=== PATIENT | female | born 1995 | race Caucasian/White ===

== ENCOUNTER → 2021-05-12 10:42 | Outpatient (CLI) | payer BC, SELFPAY ==
--- NOTE | ~2021-05-12 | CT_ITS ---
EXAMINATION: CT soft tissue neck chest w DATE: 05/12/2021 11:25 INDICATION: Generalized enlarged lymph nodes. TECHNIQUE: Computed tomography (CT) of the neck and chest was performed with 75 mL Omnipaque-350 intr avenous contrast. Automated exposure control and iterative reconstruction technique were employed. Th e dose-length product was 713.53 mGy-cm. COMPARISON: None FINDINGS: CT NECK: There are no pathologically enlarged lymph nodes. There is mild cervical spondylosis. CT CHEST: There is minimal atelectasis in the lungs. No pleural effusion. The heart size is normal. N o pericardial effusion. There are no pathologically enlarged lymph nodes. The bones are unremarkable. IMPRESSION: 1. No lymphadenopathy. Reviewed, dictated and finalized at location A. IMPRESSION: 1. No lymphadenopathy.
== END ==
PROVIDERS: PCP Family Medicine; Visit Provider Nurse Practitioner Family
DX: R59.1 Generalized enlarged lymph nodes (principal)
CPT/HCPCS: 70491; 71260; Q9967

== ENCOUNTER → 2022-02-07 07:50 | Outpatient (CLI) | payer BC, SELFPAY ==
--- NOTE | ~2022-02-07 | US_ITS ---
EXAMINATION: US right upper quadrant DATE: 02/07/2022 08:14 INDICATION: Right upper quadrant pain TECHNIQUE: Multiple grayscale and Doppler ultrasound images of the abdomen were obtained. COMPARISON: None available FINDINGS: The head, body, and tail of the pancreas are normal. The liver is normal with normal echoge nicity and echotexture. No surface nodularity. Normal hepatopetal flow in the main portal vein. The g allbladder is normal with no abnormal wall thickening, pericholecystic fluid or stones. The normal co mmon bile duct measures 3 mm. There was no sonographic Molina sign. IMPRESSION: 1. Normal sonographic study of the gallbladder. Reviewed, dictated and finalized at location A. ICAL ACADEMIC ALLERGIST
== END ==
PROVIDERS: PCP Nurse Practitioner Family; Visit Provider Nurse Practitioner Family
DX: R10.11 Right upper quadrant pain (principal); R11.0 Nausea
CPT/HCPCS: 76705

== ENCOUNTER → 2022-07-06 12:00 | Outpatient (CLI) | payer BC, SELFPAY ==
--- NOTE | ~2022-07-06 | US_ITS ---
Pelvic ultrasound. Clinical History: First trimester , inconclusive viability Technique: Realtime transabdominal and transvaginal scanning of the pelvis was performed. Color flow Doppler and Doppler spectral analysis were performed. Findings: The uterus is anteverted, and contains an intrauterine gestation. [place]-rump length of 1.6 cm corresponds to an estimated gestational age of 8 weeks 0 days. heart rate is 171 bpm. The right ovary is not visualized. No significant right ovarian or adnexal mass is seen. The left ovary measures 2.4 x 2.8 x 1.6 cm. No significant left ovarian or adnexal mass is seen. There is no evidence of free fluid in the cul de sac. Impression: Live intrauterine gestation with estimated gestational age of 8 weeks 0 days. heart rate is 171 bpm. Sonographic AGUS is 02/15/2023. Reviewed, dictated and finalized at [facility]. Impression: Live intrauterine gestation with estimated gestational age of 8 weeks 0 days. F etal heart rate is 171 bpm. Sonographic AGUS is 02/15/2023.
== END ==
PROVIDERS: PCP Advanced Practice Midwife; Visit Provider Advanced Practice Midwife
DX: O36.80X0 Pregnancy with inconclusive fetal viability, not applicable or unspecified (principal); Z3A.08 8 weeks gestation of pregnancy
CPT/HCPCS: 76801

== ENCOUNTER → 2022-08-13 11:31 | Outpatient (CLI) | payer BC, SELFPAY ==
--- NOTE | ~2022-08-13 | US_ITS ---
US right upper quadrant INDICATION: Right upper quadrant abdominal pain PROCEDURE: Realtime right upper abdominal ultrasound. COMPARISON: There is a hypoechoic mass of the right hepatic lobe measuring 2.3 x 2 x 1.5 cm located i n a subcapsular location. Otherwise, liver echotexture is normal. FINDINGS: The pancreas is normal without focal mass or pancreatic ductal dilation. Liver echotexture is normal without focal mass or intrahepatic biliary dilatation. There is normal directional flow i n the portal vein. The gallbladder is normal without stones, gallbladder wall thickening or pericholecystic fluid. Comm on bile duct measures 3.4 mm. No sonographic Molina's sign. IMPRESSION: 1: Hyperechoic mass of the right hepatic lobe measuring up to 2.3 cm. In the absence of known maligna ncy this is likely benign hemangioma. Consider correlation with CT abdomen with multiphasic contrast enhancement. Reviewed, dictated and finalized at location A. IMPRESSION: 1: Hyperechoic mass of the right hepatic lobe measuring up to 2.3 cm. In the ab sence of known malignancy this is likely benign hemangioma. Consider correlatio n with CT abdomen with multiphasic contrast enhancement.
== END ==
PROVIDERS: PCP Nurse Practitioner; Visit Provider Nurse Practitioner
DX: R10.11 Right upper quadrant pain (principal)
CPT/HCPCS: 76705

== ENCOUNTER → 2022-09-17 08:47 | Outpatient (CLI) | payer BC, SELFPAY ==
--- NOTE | ~2022-09-17 | US_ITS ---
EXAMINATION: US OB /maternal detail DATE: 09/17/2022 09:45 INDICATION: survey TECHNIQUE: Multiple obstetric sonographic images performed. FINDINGS: Ultrasound dated 07/06/2022 There is a single living fetus in vertex presentation. The placenta is posterior without placenta pr evia. Placental margin to the cervix is 5.8 cm. Cervical length is 3.7 cm. Amniotic fluid volume is s ubjectively normal. cardiac activity and movement is noted with a heart rate of beats per minute. The following anatomy was identified as normal: 4 chamber heart 3 vessel cord cord insertion kidneys urinary bladder stomach spine diaphragm ventricles cisterna magna cerebellum The following biometric data were obtained: BPD: 44mm corresponds to gestational age 19 weeks 2 days. Head circumference: 163 mm corresponds to gestational age 19 weeks 0 days. Abdominal circumference: 129 mm corresponds to gestational age 18 weeks 3 days. Femur length: 25 mm corresponds to gestational age 17 weeks 4 days. Head circumference to abdominal circumference ratio: 1.26 (normal range for expected gestational age is 1.09-1.27). Estimated weight: 227 grams +/- 34 grams using Hadlock method, 30%. IMPRESSION: 1: Single living intrauterine with an estimated gestational age of 18weeks 3days by initial ultrasound measurements, with an EDC of 02/15/2023 in vertex presentation. 2. Normal survey. Reviewed, dictated and finalized at location A. IMPRESSION: 1: Single living intrauterine with an estimated gestational age of 18 weeks 3days by initial ultrasound measurements, with an EDC of 02/15/2023 in ve rtex presentation. 2. Normal survey.
== END ==
PROVIDERS: PCP Advanced Practice Midwife; Visit Provider Advanced Practice Midwife
DX: Z36.9 Encounter for antenatal screening, unspecified (principal); Z3A.19 19 weeks gestation of pregnancy
CPT/HCPCS: 76805

== ENCOUNTER 2022-10-30 14:33 | Observation (INO) | payer BC, SELFPAY ==
--- NOTE | ~2022-10-30 | US_ITS ---
Pelvic ultrasound. Clinical History: Second trimester , status post fall Technique: Realtime transabdominal and transvaginal scanning of the pelvis was performed. Color flow Doppler and Doppler spectral analysis were performed. Findings: The uterus is anteverted, and contains an intrauterine gestation. heart rate is 151 b pm. Placenta is posteriorly located. Amniotic fluid index is 17.6. Cephalic lie noted. Neither ovary visualized. There is no evidence of free fluid in the cul de sac. Impression: Live intrauterine gestation, as detailed above. Reviewed, dictated and finalized at location M. Impression: Live intrauterine gestation, as detailed above.
[2022-10-30 14:51] VITALS: BMI 28.9
--- NOTE | 2022-10-30 14:51 | OBADM ---
This patient, Rekha Flores, admitted to the OB room OB Post 116 for observation. Patient/family oriented to hospital policies and general routines including ID bracelet, bed and alarms, visiting hours, pain management, procedures, bathroom and other care routines, personal items, smoking policy, room service/diet, and visiting hours. Patient/Family are encouraged to report perceived risks to care and to ask questions if they do not understand what they are told or what they should do.
[2022-10-30 15:01] VITALS: BP 111/60; PULSE 72
--- NOTE | 2022-10-30 17:58 | PC.NURSE ---
Dr. Zayas notified of NST, no contractions/leaking of fluid or vaginal bleeding. LAINE and placenta check done by ultrasound. Okay to discharge.
--- NOTE | 2022-11-01 11:43 | PM.OBTRLD ---
OB - Triage/Final Diagnosis Visit Information Comments/Additional reasons for admission: I have assessed the risk for this patient, Rekha Flores, and determined that she would benefit from observation care. Final Diagnosis (1) Fall from slip, trip, or stumble: Code(s): W01.0XXA - Fall on same level from slipping, tripping and stumbling without subsequent striking against object, initial encounter Status: Acute
== END 2022-10-30 17:10 | disposition home or self-care (01) ==
PROVIDERS: Admitting Provider Obstetrics & Gynecology; PCP Advanced Practice Midwife; Visit Provider Obstetrics & Gynecology
DX: Z04.3 Encounter for examination and observation following other accident (principal)
CPT/HCPCS: 76815; G0378; G0379

== ENCOUNTER 2022-12-17 09:07 | Outpatient (CLI) | payer OTHER, SELFPAY ==
[2022-12-17 09:28] LABS: Hematocrit 34.3 % (37.0-47.0); Hemoglobin 11.1 g/dL (12.0-15.0); Mean Corpuscular HGB Conc 32.4 g/dl (32-36); Mean Corpuscular Hemoglobin 29.2 pg (26-34); Mean Corpuscular Volume 90.3 fl (80-100); Mean Platelet Volume 10.5 fl (7.4-10.4); Platelet Count Result 179 k/mm3 (150-375); Red Cell Distribution Width 13.2 % (11.5-14.5); White Blood Count 7.4 K/mm3 (4.5-10.0)
[2022-12-17 09:45] LABS: Alanine Aminotransferase 13 U/L (6-35); Albumin Level 3.5 g/dL (3.5-5.1); Alkaline Phosphatase 85 U/L (38-126); Anion Gap 6 mmol/L (8-16); Aspartate Amino Transferase 17 U/L (14-36); Bilirubin,Total 0.4 mg/dL (0.2-1.3); Blood Urea Nitrogen 6 mg/dL (7-17); Calcium 8.4 mg/dL (8.4-10.2); Carbon Dioxide 24 mmol/L (22-30); Chloride 104 mmol/L (98-107); Estimated Glomerular Filt Rate > 60; Glucose 83 mg/dL (65-110); Potassium 4.2 mmol/L (3.4-5.0); Sodium 134 mmol/L (137-145); Uric Acid 3.5 mg/dL (2.5-7.5)
== END 2022-12-17 09:08 | disposition home or self-care (01) ==
LOC: ANHLAB 09:11
PROVIDERS: PCP Advanced Practice Midwife; Visit Provider Obstetrics & Gynecology Gynecology
DX: R03.0 Elevated blood-pressure reading, without diagnosis of hypertension (principal)
CPT/HCPCS: 36415; 80053; 84550; 85027

== ENCOUNTER 2022-12-19 07:22 | Outpatient (NON) | payer OTHER, SELFPAY ==
[2022-12-19 08:41] LABS: Collection Time Urine 24 HOURS
[2022-12-19 09:02] LABS: Patient Weight 180 Lbs
[2022-12-19 09:55] LABS: Total Volume 24 Hour Urine 1700 ml
[2022-12-19 10:03] LABS: Creatinine Urine 62.7 mg/dL
[2022-12-21 10:29] LABS: Total Protein Urine 24 Hr 289 mg/24hr (28-141); Total Protein Urine Random 17 mg/dL
== END 2022-12-19 07:23 | disposition home or self-care (01) ==
LOC: ANHLAB 07:24
PROVIDERS: PCP Advanced Practice Midwife; Visit Provider Obstetrics & Gynecology Gynecology
DX: R03.0 Elevated blood-pressure reading, without diagnosis of hypertension (principal)
CPT/HCPCS: 81050; 82575; 84156

== ENCOUNTER 2022-12-26 15:47 | Outpatient (CLI) | payer OTHER, SELFPAY ==
[2022-12-26 16:30] LABS: Basophils Percent Auto 0.3 % (0.2-1.2); Eosinophils Absolute Auto 0.1 K/mm3 (0-0.3); Eosinophils Percent Auto 1.1 % (0-4.4); Hematocrit 34.9 % (37.0-47.0); Hemoglobin 11.3 g/dL (12.0-15.0); Immature Granulocyte Absolute 0.09 K/mm3 (0.00-0.031); Immature Granulocyte Percent A 1.4 % (0-0.5); Lymphocytes Absolute Auto 1.24 K/mm3 (0.9-3.2); Lymphocytes Percent Auto 19.2 % (18.3-44.2); Mean Corpuscular HGB Conc 32.4 g/dl (32-36); Mean Corpuscular Hemoglobin 29.3 pg (26-34); Mean Corpuscular Volume 90.4 fl (80-100); Mean Platelet Volume 10.7 fl (7.4-10.4); Monocytes Absolute Auto 0.6 K/mm3 (0.1-0.6); Monocytes Percent Auto 9.3 % (2.6-8.5); Neutrophils Absolute Auto 4.4 K/mm3 (1.3-6.7); Neutrophils Percent Auto 68.7 % (45.5-73.1); Platelet Count Result 186 k/mm3 (150-375); Red Blood Count 3.86 M/mm3 (4.2-5.4); Red Cell Distribution Width 13.2 % (11.5-14.5); White Blood Count 6.5 K/mm3 (4.5-10.0)
[2022-12-26 16:41] LABS: Alanine Aminotransferase 15 U/L (6-35); Albumin Level 3.8 g/dL (3.5-5.1); Alkaline Phosphatase 99 U/L (38-126); Anion Gap 6 mmol/L (8-16); Aspartate Amino Transferase 16 U/L (14-36); Bilirubin,Total 0.5 mg/dL (0.2-1.3); Blood Urea Nitrogen 7 mg/dL (7-17); Calcium 8.9 mg/dL (8.4-10.2); Carbon Dioxide 24 mmol/L (22-30); Chloride 104 mmol/L (98-107); Estimated Glomerular Filt Rate > 60; Glucose 90 mg/dL (65-110); Sodium 134 mmol/L (137-145)
== END 2022-12-26 15:48 | disposition home or self-care (01) ==
LOC: ANHLAB 15:54
PROVIDERS: PCP Advanced Practice Midwife; Visit Provider Obstetrics & Gynecology Gynecology
DX: R60.9 Edema, unspecified (principal); R51.9 Headache, unspecified; O12.10 Gestational proteinuria, unspecified trimester; Z3A.00 Weeks of gestation of pregnancy not specified
CPT/HCPCS: 36415; 80053; 85025

== ENCOUNTER 2022-12-28 07:31 | Outpatient (CLI) | payer OTHER, SELFPAY ==
[2022-12-28 12:39] LABS: Total Volume 24 Hour Urine 2100 ml
[2022-12-28 12:47] LABS: Total Protein Urine 24 Hr 399 mg/24hr (28-141); Total Protein Urine Random 19 mg/dL
== END 2022-12-28 07:32 | disposition home or self-care (01) ==
LOC: ANHLAB 07:35
PROVIDERS: PCP Nurse Practitioner Family; Visit Provider Obstetrics & Gynecology Gynecology
DX: R51.9 Headache, unspecified (principal); R60.9 Edema, unspecified; O12.10 Gestational proteinuria, unspecified trimester; Z3A.00 Weeks of gestation of pregnancy not specified
CPT/HCPCS: 81050; 84156

== ENCOUNTER 2023-01-02 11:23 | Outpatient (CLI) | payer OTHER, SELFPAY ==
[2023-01-02 11:49] LABS: Hematocrit 35.1 % (37.0-47.0); Hemoglobin 11.4 g/dL (12.0-15.0); Mean Corpuscular HGB Conc 32.5 g/dl (32-36); Mean Corpuscular Hemoglobin 29.2 pg (26-34); Mean Corpuscular Volume 89.8 fl (80-100); Mean Platelet Volume 10.2 fl (7.4-10.4); Platelet Count Result 176 k/mm3 (150-375); Red Blood Count 3.91 M/mm3 (4.2-5.4); Red Cell Distribution Width 13.5 % (11.5-14.5); White Blood Count 6.7 K/mm3 (4.5-10.0)
[2023-01-02 11:58] LABS: Alanine Aminotransferase 14 U/L (6-35); Albumin Level 3.6 g/dL (3.5-5.1); Alkaline Phosphatase 87 U/L (38-126); Anion Gap 6 mmol/L (8-16); Aspartate Amino Transferase 19 U/L (14-36); Bilirubin,Total 0.5 mg/dL (0.2-1.3); Blood Urea Nitrogen 8 mg/dL (7-17); Calcium 8.9 mg/dL (8.4-10.2); Carbon Dioxide 22 mmol/L (22-30); Chloride 105 mmol/L (98-107); Estimated Glomerular Filt Rate > 60; Glucose 95 mg/dL (65-110); Potassium 3.7 mmol/L (3.4-5.0); Sodium 133 mmol/L (137-145); Uric Acid 3.4 mg/dL (2.5-7.5)
== END 2023-01-02 11:24 | disposition home or self-care (01) ==
LOC: ANHLAB 11:26
PROVIDERS: PCP Nurse Practitioner Family; Visit Provider Obstetrics & Gynecology Gynecology
DX: Z34.03 Encounter for supervision of normal first pregnancy, third trimester (principal); Z3A.00 Weeks of gestation of pregnancy not specified
CPT/HCPCS: 36415; 80053; 84550; 85027

== ENCOUNTER → 2023-01-05 11:34 | Outpatient (CLI) | payer OTHER, SELFPAY ==
--- NOTE | ~2023-01-05 | US_ITS ---
EXAMINATION: US OB follow up, US umbilical doppler DATE: 01/05/2023 12:16 INDICATION: Preeclampsia, third trimester TECHNIQUE: Real-time ultrasound of the pelvis was performed. The interpreting radiologist was not pre sent for the study. COMPARISON: 10/30/2022 FINDINGS: There is a single living fetus in vertex presentation. The placenta is posterior. The measu red cervical length is 2.5 cm. cardiac activity and movement are noted. heart rate is 140 beats per minute (bpm). The amniotic fluid index is 23.0 cm which is normal (normal range: 8.1 cm to 24.8 cm). Umbilical artery pulsed Doppler demonstrates peak systolic to end-diastolic velocity ratios (S/D rati os) of 4.3 near the fetus, 2.6 in the mid cord, and 3.2 near the placenta (5th percentile = 2.1, 95th percentile = 3.5). The following biometric data were obtained: Biparietal diameter (BPD): 9.1 cm; head circumference (HC): 33.3 cm; abdominal circumference (AC): 31 .0 cm; femur length (FL): 6.3 cm. The femoral length to biparietal diameter ratio is greater than two standard deviations below the julius n. These measurements are otherwise concordant. Estimated weight is 2517 g +/- 377 g, which correlates with the 64th percentile when 02/15/2023 is used as estimated date of delivery. As single measurements, these parameters are each equal to the following estimated gestational ages w ith ranges of +/- 2 standard deviations: BPD: 36 weeks 6 days ( 33 weeks 4 days - 40 weeks 0 days). HC: 38 weeks 0 days ( 35 weeks 2 days - 40 weeks 5 days). AC: 35 weeks 0 days ( 32 weeks 0 days - 37 weeks 6 days). FL: 32 weeks 4 days ( 29 weeks 4 days - 35 weeks 4 days). estimated gestational age based solely on measurements from this exam is 35 weeks 4 days +/- 2 weeks 3 days. IMPRESSION: 1. Single living fetus in vertex presentation. 2. Normal amniotic fluid index. 3. Estimated weight is 2517 g +/- 377 g, which correlates with the 64th percentile when is used as estimated date of delivery. 4. Femoral length to biparietal diameter ratio greater than two standard deviations below the mean. 5. Elevated peak systolic to end diastolic umbilical artery ratio near the fetus. Reviewed, dictated and finalized at location L. IRER SASH AND DOOR IMPRESSION: 1. Single living fetus in vertex presentation. 2. Normal amniotic fluid index. 3. Estimated weight is 2517 g +/- 377 g, which correlates with the 64th p ercentile when 02/15/2023 is used as estimated date of delivery. 4. Femoral length to biparietal diameter ratio greater than two standard deviat ions below the mean. 5. Elevated peak systolic to end diastolic umbilical artery ratio near the fetu s.
== END ==
PROVIDERS: PCP Obstetrics & Gynecology Gynecology; Visit Provider Obstetrics & Gynecology Gynecology
DX: O14.93 Unspecified pre-eclampsia, third trimester (principal); Z3A.35 35 weeks gestation of pregnancy
CPT/HCPCS: 76816; 76820

== ENCOUNTER 2023-01-05 14:28 | Observation (INO) | payer OTHER, SELFPAY ==
[2023-01-05] VITALS (9 sets, daily range): BP systolic 114–126; BP diastolic 54–81; PULSE 82–97; BMI 32.8
[2023-01-05] MEDS: NIFEdipine 10 MG CAPSULE PO (15:08)
--- NOTE | 2023-01-05 15:12 | OBADM ---
This patient, Rekha Flores, admitted to the OB room Labor/Delivery/Recovery 107 for observation. Patient/family oriented to hospital policies and general routines including ID bracelet, bed and alarms, visiting hours, pain management, procedures, bathroom and other care routines, personal items, smoking policy, room service/diet, and visiting hours. Patient/Family are encouraged to report perceived risks to care and to ask questions if they do not understand what they are told or what they should do.
[2023-01-05] MEDS: BETAMETHASONE SOD PHOS/ACETATE 30 MG/5 ML VIAL 12 MG IM (17:08)
--- NOTE | 2023-01-16 07:41 | PM.OBTRLD ---
OB - Triage/Final Diagnosis Visit Information Reason for evaluation: other (Preeclampsia) Comments/Additional reasons for admission: I have assessed the risk for this patient, Rekha Flores, and determined that she would benefit from observation care.
== END 2023-01-05 17:33 | disposition home or self-care (01) ==
PROVIDERS: Admitting Provider Obstetrics & Gynecology Gynecology; PCP Obstetrics & Gynecology Gynecology; Visit Provider Obstetrics & Gynecology Gynecology
DX: O14.93 Unspecified pre-eclampsia, third trimester (principal); Z3A.34 34 weeks gestation of pregnancy
CPT/HCPCS: 96372; A9270; G0378; G0379; J0702

== ENCOUNTER 2023-01-06 16:44 | Outpatient (CLI) | payer OTHER, SELFPAY ==
[2023-01-06] MEDS: BETAMETHASONE SOD PHOS/ACETATE 30 MG/5 ML VIAL 12 MG IM (17:14)
[2023-01-06 17:16] VITALS: BP 125/80; PULSE 92
[2023-01-06 17:31] VITALS: BP 113/67; PULSE 83
[2023-01-06 17:48] VITALS: BP 113/67; PULSE 86
== END 2023-01-06 17:45 | disposition home or self-care (01) ==
LOC: ANHOBOP 16:55 → ANHLDR 17:00
PROVIDERS: PCP Nurse Practitioner Family; Visit Provider Obstetrics & Gynecology Gynecology
DX: O36.8190 Decreased fetal movements, unspecified trimester, not applicable or unspecified (principal); Z3A.00 Weeks of gestation of pregnancy not specified
CPT/HCPCS: 59025; 96372; 99199; J0702

== ENCOUNTER → 2023-01-09 12:05 | Outpatient (CLI) | payer OTHER, SELFPAY ==
--- NOTE | ~2023-01-09 | US_ITS ---
EXAMINATION: 1. US OB follow up 2. US umbilical doppler DATE: 01/09/2023 12:35 INDICATION: Growth discrepancy. TECHNIQUE: Real-time ultrasound of the pelvis was performed. COMPARISON: Ultrasound 01/05/2023 FINDINGS: There is a single living fetus in vertex presentation. The placenta is posterior. heart rate i s 136 beats per minute (bpm). The amniotic fluid index is 22.9 cm, which is normal. The following biometric data were obtained: Biparietal diameter (BPD): 8.8 cm; head circumference (HC): 31.3 cm; abdominal circumference (AC): 31 .2 cm; femur length (FL): 6.7 cm. These measurements are concordant. Estimated weight is 2555 g +/- 383 g, which correlates with the 53rd percentile when 02/15/23 i s used as estimated date of delivery. As single measurements, these parameters are each equal to the following estimated gestational ages: BPD: 35 weeks 4 days. HC: 35 weeks 1 days. AC: 35 weeks 1 days. FL: 34 weeks 2 days. estimated gestational age based solely on measurements from this exam is 35 weeks 0 days +/- 2 weeks 3 days. Umbilical artery pulsed Doppler demonstrates a peak systolic to end-diastolic velocity ratio (S/D rat io) of 2.3 (5th percentile is 2.07. 95th percentile is 3.53). IMPRESSION: 1. Single living fetus in vertex presentation. 2. Estimated weight is 2555 g +/- 383 g, which correlates with the 53rd percentile when is used as estimated date of delivery. 3. Normal umbilical artery Doppler. Reviewed, dictated and finalized at location A. ENGER RELATIONS REPRESENTATIVE IMPRESSION: 1. Single living fetus in vertex presentation. 2. Estimated weight is 2555 g +/- 383 g, which correlates with the 53rd percentile when 02/15/23 is used as estimated date of delivery. 3. Normal umbilical artery Doppler.
== END ==
PROVIDERS: PCP Advanced Practice Midwife; Visit Provider Advanced Practice Midwife
DX: O36.5930 Maternal care for other known or suspected poor fetal growth, third trimester, not applicable or unspecified (principal); Z3A.35 35 weeks gestation of pregnancy
CPT/HCPCS: 76816; 76820

== ENCOUNTER 2023-01-10 12:05 | Outpatient (CLI) | payer OTHER, SELFPAY ==
[2023-01-10] VITALS (12 sets, daily range): BP systolic 114–125; BP diastolic 73–79; PULSE 77–105; RESP 16; TEMP 36.8; O2SAT 94–100; BMI 32.3
[2023-01-10 12:39] LABS: Basophils Percent Auto 0.3 % (0.2-1.2); Eosinophils Absolute Auto 0.1 K/mm3 (0-0.3); Eosinophils Percent Auto 0.8 % (0-4.4); Hematocrit 36.2 % (37.0-47.0); Hemoglobin 11.7 g/dL (12.0-15.0); Immature Granulocyte Absolute 0.18 K/mm3 (0.00-0.031); Immature Granulocyte Percent A 2.4 % (0-0.5); Lymphocytes Absolute Auto 1.31 K/mm3 (0.9-3.2); Lymphocytes Percent Auto 17.5 % (18.3-44.2); Mean Corpuscular HGB Conc 32.3 g/dl (32-36); Mean Corpuscular Hemoglobin 28.7 pg (26-34); Mean Corpuscular Volume 88.9 fl (80-100); Mean Platelet Volume 10.8 fl (7.4-10.4); Monocytes Absolute Auto 0.7 K/mm3 (0.1-0.6); Neutrophils Absolute Auto 5.2 K/mm3 (1.3-6.7); Platelet Count Result 189 k/mm3 (150-375); Red Blood Count 4.07 M/mm3 (4.2-5.4); Red Cell Distribution Width 13.7 % (11.5-14.5); White Blood Count 7.5 K/mm3 (4.5-10.0)
[2023-01-10 12:43] LABS: Appearance Urine Cloudy (Clear); Bacteria Urine 1+ /hpf; Bilirubin Urine Negative (Negative); Blood Urine Negative (Negative); Color Urine Yellow (Yellow); Glucose Urine UA Negative (Negative); Ketones Urine Trace mg/dL (Negative); Leukocyte Esterase Ur 2+ LEU/UL (NEGATIVE); Nitrate Urine Negative (Negative); Protein Urine Negative (Negative); RBC Urine 0-2 /hpf (0-2); Specific Grav Ur 1.019 (1.001-1.035); Squamous Epithelial Cell Urine Many /hpf (Few); WBC Urine 21-50 /hpf (0-3); pH Urine 6.5 (5.0-9.0)
[2023-01-10 12:48] LABS: Add Urine Microscopic? YES
[2023-01-10 12:49] LABS: Alanine Aminotransferase 18 U/L (6-35); Albumin Level 3.7 g/dL (3.5-5.1); Alkaline Phosphatase 105 U/L (38-126); Anion Gap 11 mmol/L (8-16); Aspartate Amino Transferase 18 U/L (14-36); Bilirubin,Total 0.5 mg/dL (0.2-1.3); Blood Urea Nitrogen 6 mg/dL (7-17); Calcium 9.1 mg/dL (8.4-10.2); Carbon Dioxide 20 mmol/L (22-30); Chloride 104 mmol/L (98-107); Estimated Glomerular Filt Rate > 60; Glucose 101 mg/dL (65-110); Potassium 3.6 mmol/L (3.4-5.0); Sodium 135 mmol/L (137-145); Uric Acid 3.6 mg/dL (2.5-7.5)
[2023-01-10 12:50] LABS: Creatinine Urine 153.7 mg/dL; Total Protein Urine Random 15 mg/dL
--- NOTE | 2023-01-10 13:05 | PC.NURSE ---
Philip Rivero informed of reactive NST, BP's, lab results, pt c/o increased SOB last night- occurs mainly at night. No apparent respiratory distress currently. Resp 16. O2 sat was initially 94-95%, but now 97-100%. Breath sounds clear bilaterally. OK to discharge to home.
== END 2023-01-10 13:10 | disposition home or self-care (01) ==
LOC: ANHOBOP 12:11 → ANHOBPP 12:11
PROVIDERS: PCP Nurse Practitioner Family; Visit Provider Advanced Practice Midwife
DX: O99.891 Other specified diseases and conditions complicating pregnancy (principal); R06.02 Shortness of breath
CPT/HCPCS: 36415; 59025; 80053; 81001; 82570; 84156; 84550; 85025; 87086; 87088; 99199

== ENCOUNTER 2023-01-12 08:55 | Outpatient (RCR) | payer OTHER, SELFPAY ==
--- NOTE | ~2023-01-12 | US_ITS ---
EXAMINATION: US OB BPP wo non-stress DATE: 01/12/2023 10:12 INDICATION: Nonreactive nonstress test. Third trimester. TECHNIQUE: Real-time pelvic ultrasound was performed. COMPARISON: Ultrasound 01/09/2023 FINDINGS: There is a single living fetus in vertex presentation. The placenta is posterior. heart rate i s 129 beats per minute (bpm). The amniotic fluid index is 29.6 cm, which is high (95th percentile is 24.9 cm). Biophysical profile performed by the technologist: breathing (30 sec sustained breathing in 30 minutes): 2 out of 2 movement (3 gross body movements in 30 minutes): 2 out of 2 tone (one episode of mphcvbr-bovxkdpic-keoqoqk limb movement): 2 out of 2 Amniotic fluid pocket (2 cm): 2 out of 2 Total score: 8 out of 8 IMPRESSION: 1. Single living fetus in vertex presentation. 2. Biophysical profile 8 out of 8. 3. Polyhydramnios. Reviewed, dictated and finalized at location A.
[2023-01-12 10:37] VITALS: BP 117/73; PULSE 80
== END 2023-04-12 23:59 | disposition home or self-care (01) ==
LOC: ANHOBOP 08:55
PROVIDERS: PCP Nurse Practitioner Family; Visit Provider Obstetrics & Gynecology Gynecology
DX: O36.8330 Maternal care for abnormalities of the fetal heart rate or rhythm, third trimester, not applicable or unspecified (principal); O40.3XX0 Polyhydramnios, third trimester, not applicable or unspecified
CPT/HCPCS: 59025; 76819

== ENCOUNTER 2023-01-22 14:00 | Outpatient (CLI) | payer OTHER, SELFPAY ==
[2023-01-22 15:11] VITALS: BP 120/79; PULSE 80
--- NOTE | 2023-01-22 15:13 | PC.NURSE ---
2393- Dr. Nguyễn called about NST, ROM plus negative. Okay to discharge
--- NOTE | 2023-01-22 15:15 | PC.NURSE ---
SVE fingertip/thick/-2
== END 2023-01-22 15:05 ==
LOC: ANHOBOP 14:54 → ANHLDR 14:55
PROVIDERS: PCP Nurse Practitioner Family; Visit Provider Advanced Practice Midwife
DX: O42.90 Premature rupture of membranes, unspecified as to length of time between rupture and onset of labor, unspecified weeks of gestation (principal); Z3A.00 Weeks of gestation of pregnancy not specified
CPT/HCPCS: 59025; 84112; 99199

== ENCOUNTER 2023-01-25 00:01 | Inpatient (IN) | payer OTHER, SELFPAY ==
[2023-01-25] VITALS (165 sets, daily range): BP systolic 90–146; BP diastolic 53–98; PULSE 66–118; TEMP 36.2–36.6; O2SAT 95–100; BMI 33.2
[2023-01-25 00:42] LABS: Basophils Percent Auto 0.4 % (0.2-1.2); Eosinophils Absolute Auto 0.1 K/mm3 (0-0.3); Eosinophils Percent Auto 1.1 % (0-4.4); Hemoglobin 11.5 g/dL (12.0-15.0); Immature Granulocyte Absolute 0.11 K/mm3 (0.00-0.031); Immature Granulocyte Percent A 1.5 % (0-0.5); Lymphocytes Absolute Auto 1.66 K/mm3 (0.9-3.2); Mean Corpuscular HGB Conc 32.9 g/dl (32-36); Mean Corpuscular Hemoglobin 29.1 pg (26-34); Mean Corpuscular Volume 88.6 fl (80-100); Mean Platelet Volume 11.2 fl (7.4-10.4); Monocytes Absolute Auto 0.6 K/mm3 (0.1-0.6); Monocytes Percent Auto 7.3 % (2.6-8.5); Neutrophils Absolute Auto 5.1 K/mm3 (1.3-6.7); Neutrophils Percent Auto 67.7 % (45.5-73.1); Platelet Count Result 164 k/mm3 (150-375); Red Blood Count 3.95 M/mm3 (4.2-5.4); Red Cell Distribution Width 13.4 % (11.5-14.5); White Blood Count 7.5 K/mm3 (4.5-10.0)
[2023-01-25 00:58] LABS: Alanine Aminotransferase 16 U/L (6-35); Albumin Level 3.7 g/dL (3.5-5.1); Alkaline Phosphatase 126 U/L (38-126); Anion Gap 10 mmol/L (8-16); Aspartate Amino Transferase 17 U/L (14-36); Bilirubin,Total 0.4 mg/dL (0.2-1.3); Blood Urea Nitrogen 8 mg/dL (7-17); Calcium 9.6 mg/dL (8.4-10.2); Carbon Dioxide 21 mmol/L (22-30); Chloride 104 mmol/L (98-107); Estimated CRCL calculation 147 ml/min; Estimated Glomerular Filt Rate > 60; Glucose 99 mg/dL (65-110); Potassium 3.7 mmol/L (3.4-5.0); Sodium 135 mmol/L (137-145); Uric Acid 3.6 mg/dL (2.5-7.5)
[2023-01-25] MEDS: miSOPROStol 25 MCG TABLET PO ×2 (01:01→05:17)
[2023-01-25] MEDS: AMPICILLIN 2 GM/NS 100 ML 2 GM/100 ML BAG IVPB (01:16)
[2023-01-25 02:07] LABS: HIV 1/2 Ab P24 Ag Result Negative (Negative)
[2023-01-25] MEDS: AMPICILLIN 1 GM/NS 50 ML 1 GM/50 ML BAG IVPB ×2 (05:23→09:33)
--- NOTE | 2023-01-25 06:17 | WPDOBADMIT ---
Obstetrics - Admit Note Admission Note: record reviewed. No pertinent additions to the history and/or any subsequent changes in the physical findings that are not consistent with the expected course of the were found. Additions to the history and/or subsequent changes in the physical findings follow. None.
--- NOTE | 2023-01-25 09:05 | PM.OBPNLAB ---
Pain Control Date/time seen: 01/25/23 09:05 Pain control: tolerating well Comments: Feeling occasional cramping. Partner present and supportive. Denies GILBERT, visual changes, RUQ pain. Pelvic Exam Dilation (cm): 2 Effacement (%): 70 station: -3 Amniotic membrane status: Intact Comments: head well applied to cervix. Contractions Monitor mode: External Contraction pattern: Irregular Contraction phase: Contraction Contraction intensity: Moderate Status status: Category l Assessment and Plan Assessment: induction ongoing Comments: CNM to bedside. Discussed plan of care an option for amniotomy. Discussed risks, benefits, and expectations of breaking water. Patient is agreeable. Amniotomy performed and there was a large return of clear amniotic fluid. Patient tolerated procedure well. Will start pitocin if needed to achieve adequate contraction pattern around 0930. Dr. Zambrano updated.
[2023-01-25 10:49] LABS: Rapid Plasma Reagin Non-Reactive (NonReactive)
[2023-01-25] MEDS: LACTATED RINGERS 1,000 ML 125 ML IV CONT ×2 (11:06→13:54)
[2023-01-25] MEDS: OXYTOCIN 30 UNITS/NS 500 ML 30 UNITS/500 ML BAG IV CONT (11:06)
[2023-01-25] MEDS: fentaNYL CITRATE INJ (*CRX) 100 MCG/2 ML VIAL 50 MCG IV PUSH ×2 (12:54→13:35)
--- NOTE | 2023-01-25 12:55 | PM.OBPNLAB ---
Pain Control Date/time seen: 01/25/23 12:55 Pain control: tolerating well Comments: Feeling increasing contractions. Requesting Fentanyl for pain Pelvic Exam Comments: 3cm on recent RN exam. Contractions Monitor mode: Internal Contraction pattern: Irregular Contraction phase: Contraction Contraction intensity: Moderate Status status: Category l Assessment and Plan Plan: continuous present management Comments: CNM at bedside. Plan of care discussed. Pt unsure if she desires an epidural. Emotional support provided. Anticipate vaginal . Dr. Zambrano updated.
[2023-01-25] MEDS: ONDANSETRON INJ 4 MG/2 ML VIAL IV PUSH ×2 (14:47→20:37)
--- NOTE | 2023-01-25 22:22 | PM.OBPRVD ---
OB - Vaginal Delivery Note Procedure Delivery date: 01/25/23 Events: Preeclampsia w/o severe features Induction method: Per Misoprostol Protocol Delivery augmentation: Rupture of Membranes Delivery monitor: External FHT and Internal FHT Route of delivery: Episiotomy description: None Laceration Description: Periurethral, Perineal - 2nd Degree and Labial Delivery repair: vicryl Specimen: Yes (placenta) Quantitative Blood Loss (ml): 250 Anesthesia type: Epidural Disposition: Floor Complications: No immediate complications Narrative: Rekha Arrived for induction of labor secondary to preeclampsia. She had an uncomplicated labor. She was given epidural for analgesia. She progressed to complete dilation and pushed well with contractions. She brought the head to complete crown. With the next push she delivered the entire head in a controlled manner. With the following push she delivered the anterior and posterior shoulders followed by remainder of the infant. The was placed on the maternal abdomen and dried and stimulated by the nursery staff. After 1 minute of life the cord was doubly clamped and cut. Cord blood, cord gases, and cord segment were obtained. A second-degree perineal laceration as well as a left labial first-degree laceration repaired in usual fashion. There was excellent hemostasis and uterine tone. All delivery counts were correct. Baby Date of : 01/25/23 Time of : 21:43 Weeks of gestation at delivery: 37 gender: Male Weight (pounds): 7 Weight (ounces): 2 presentation: vertex position: Right Occiput Anterior Placenta delivery description: Spontaneous and Normal Configuration Cord Vessel Description: 3 Vessels and Delayed Cord Clamping score one minute: 5 score five minutes: 9
--- NOTE | 2023-01-25 22:27 | PM.OBDSVD ---
DS: Admitting Diagnosis Discharge Date 01/27/2023 Admitting Diagnosis 27 y.o. at 37 weeks gestation Preeclampsia Anxiety and Depression on Lexapro DS: Discharge Diagnosis Discharge Diagnosis (1) (normal spontaneous vaginal delivery): Code(s): O80 - Encounter for full-term uncomplicated delivery Status: Acute (2) Preeclampsia: Code(s): O14.90 - Unspecified pre-eclampsia, unspecified trimester Status: Acute (3) Mother currently breastfeeds: Status: Acute (4) Anxiety and depression: Code(s): F41.9 - Anxiety disorder, unspecified; F32.A - Depression, unspecified Status: Acute OB - DS: Summary Hospital Course Hospital Course: Uncomplicated OB Procedures : NST, PIH Mgmt and Ultrasound OB Procedures Intrapartum: Spontaneous Vag Delivery OB Procedures: : None Peripartum Data Delivery Method: Natural Vaginal Laceration Description: Periurethral, Perineal - 2nd Degree and Labial Episiotomy description: None complications: none Status at Discharge Functional status at discharge: independent ambulation Overall status at discharge: patient is progressing back to baseline Time Spent with Patient Time attestation: Total time spent providing and/or coordinating discharge services: DS: Data Data Completed and Pending Labs on day of discharge: Labs from last 24 hours 01/25/23 01/25/23 00:22 00:22 WBC 7.5 RBC 3.95 L Hgb 11.5 L Hct 35.0 L MCV 88.6 MCH 29.1 MCHC 32.9 RDW 13.4 Plt Count 164 MPV 11.2 H Immature Gran % (Auto) 1.5 H Neut % (Auto) 67.7 Lymph % (Auto) 22.0 [place] % (Auto) 7.3 Eos % (Auto) 1.1 Baso % (Auto) 0.4 Lymph # (Auto) 1.66 [place] # (Auto) 0.6 Eos # (Auto) 0.1 Baso # (Auto) 0.0 Abs Immat Gran (auto) 0.11 H Absolute Neuts (auto) 5.1 Absolute Nucleated RBC 0.0 Nucleated RBC % 0.0 Sodium 135 L Potassium 3.7 Chloride 104 Carbon Dioxide 21 L Anion Gap 10 BUN 8 Creatinine 0.50 L Estim Creat Clear Calc 147 Estimated GFR > 60 Glucose 99 Uric Acid 3.6 Cancelled Calcium 9.6 Total Bilirubin 0.4 AST 17 ALT 16 Alkaline Phosphatase 126 Total Protein 7.0 Albumin 3.7 RPR Non-reactive HIV 1&2 Ab/P24 Ag 4thGn Negative Blood Type O Positive Antibody Screen Negative Discharge Plan Discharge Attending physician on discharge: Lia Zambrano Consulting providers: Riya Rivero Discharging Clinician: Riya Rivero Anticipated Discharge Date/Time: 01/27/23 10:00 Patient Disposition: Home, Self-Care Activity: may shower and pelvic rest Diet: as tolerated Wound Care Instructions: follow printed instructions Discharge Instructions: Education: Mom and Baby Guide Given to: Mother Follow-Up: Call your delivering provider's office for an appointment to be seen in: 1 week for blood pressure check & 6 weeks for post visit Mom and baby should come to the [facility] for the follow-up appointment. Appointment Date/Time: Saturday, January 28, 2023 at 8:00 a.m. What to expect at your follow-up visit: Blood Pressure Check Physical Assessment Call [phone] if you are unable to keep your appointment time. BREAST CARE: * Wear a snug supportive bra. * For engorgement discomfort: Breast Feeding: * Apply warm moist washcloths * Express milk as needed to relieve engorgement * Wear loose clothing * For sore nipples: * Identify correct latch-on * Apply warm moist washcloths before and after nursing * Air dry nipples after nursing * May apply Lansinoh cream to nipples EPISIOTOMY/PERINEAL CARE: * Until bleeding stops, use your amy bottle after urinating * Change your pad frequently throughout the day * You may take sitz baths several times a day (fill your bathtub with warm water and soak for 20
[2023-01-25] MEDS: OXYTOCIN 30 UNITS/NS 500 ML 30 UNITS/500 ML BAG 125 UNITS IV CONT (23:15)
[2023-01-26] VITALS (9 sets, daily range): BP systolic 108–136; BP diastolic 64–80; PULSE 80–101; RESP 16–18; TEMP 36.5–36.9; O2SAT 97–98
[2023-01-26] MEDS: BENZOCAINE 20% AER SPR (*SP) 56 GM CAN 1 SPRAY TOPICAL (00:18)
[2023-01-26] MEDS: IBUPROFEN 600 MG TABLET PO ×3 (00:19→17:10)
[2023-01-26] MEDS: WITCH HAZEL 40 PADS 1 PAD TOPICAL (00:20)
[2023-01-26] MEDS: LANOLIN (LANSINOH) 7.5 GM CREAM 1 APPLIC TOPICAL (00:20)
--- NOTE | 2023-01-26 01:11 | OBPPTRN ---
Patient transferred to post room 282 via wheelchair. Support person present. Oriented to unit, room, information board, rooming in, admission packet and security measures. Patient verbalizes understanding.
[2023-01-26 05:57] LABS: Hematocrit 33.7 % (37.0-47.0); Hemoglobin 11.2 g/dL (12.0-15.0)
--- NOTE | 2023-01-26 07:00 | PC.NURSE ---
PT introductions made and plan of care discussed per post , pain management, breast feeding, daily care activities. PT sole recipient of such instructions and no barriers to learning identified at this time. PT received such instructions per one to one discussion, mom baby care guide and demonstrations this shift. PT verbalized understanding of such care.
--- NOTE | 2023-01-26 09:38 | P.PNOB_ITS ---
OB - PN: Subj Subjective Date/time seen: 01/26/23 0720 Interval history: Doing well. Urinating without difficulty. Denies passing any large clots. Denies dizziness with ambulating. Tolerating po food and fluids. Bonding with infant. BP normal range overnight. No GILBERT, visual changes, RUQ pain, or increase in edema. Patient comments: pain well controlled [place] baby status: nursing well feeding status: exclusively breast feeding OB - PN: Obj Data Labs 01/26/23 03:49 01/25/23 00:22 Labs: Laboratory Results - last 24 hr 01/25/23 01/26/23 00:22 03:49 Hgb 11.2 L Hct 33.7 L RPR Non-reactive OB - PN A/P Plan day: 1 Plan: routine care Time Spent With Patient Time: Total time spent is greater than 50% in coordination of care (as documented) at patient's floor/unit and/or counseling patient: Review of Systems Review of Systems: All systems reviewed & are unremarkable except as noted in HPI and below Exam Narrative: Alert and oriented. Mood is pleasant and cooperative. Perineum with minimal edema. Fundus firm and below umbilicus. Const: General: cooperative, healthy appearing, no acute distress and alert Orientation/consciousness: patient oriented x3 Limitations: no limitations Resp: Effort & Inspection: normal respiratory effort and able to speak in complete sentences Auscultation: clear to auscultation bilaterally Cardio: Rate: regular rate GI: Inspection: normal to inspection Auscultation: normal bowel sounds : General: Yes bladder normal to palpation External Female Exam: other (lochia WNL) Bimanual exam- vagina & uterus: bladder normal to palpation Other: Fundus firm and below U Skin: General skin exam: normal color and no rashes or lesions noted Neuro: General: patient oriented x3 and moves all extremities Cognition (Neuro): normal cognition Extrem: General: normal to inspection and no calf tenderness Psych: Appearance: grossly normal Mental Status: mental status grossly normal Affect: normal affect Thought process: Normal thought process present
[2023-01-26] MEDS: MULTIVIT/MIN/PREN/FOL AC/IRON TABLET 1 TAB PO (10:04)
[2023-01-26] MEDS: DOCUSATE SODIUM 100 MG CAPSULE PO ×2 (10:04→17:11)
[2023-01-26] MEDS: ACETAMINOPHEN 325 MG TABLET 650 MG PO ×2 (10:06→17:09)
--- NOTE | 2023-01-26 16:17 | PC.NURSE ---
[id number] Introductions were made, then consulted with patient to assess needs related to . Mother led the conversation with her?plans to feed?her infant and the?experience so far. Encouraged understanding of the benefits of skin to skin (demonstrating unwrapping and placing upright on her chest), stimulating with massage touch, changing positions to encourage wakefulness, how to watch for early feeding cues, responsive feeding, feeding on demand (aiming for 8-12 times in 24 hours, about every 2-3 hours), milk production, hand expression, building/maintaining a milk supply, duration of feeding, signs of adequate intake/output and how to record on the feeding sheet. Mother works well with her infant with encouragement and education. Parents voiced understanding of the information. [id number] LC was requested. Mother is demonstrating working well with her infant and has infant latched cross cradle to the right breast. Infant was detached after sharing the visual assessment of with less than 90 degrees. Nipple was misshaped. Mother states she is unable to latch to the left breast so, we decided to work together to see if we can reposition to latch infant deeply on the left. Reviewed positioning and ear, shoulder, hip alignment, supporting the breast to facilitate a deep latch, asymmetrical latch (off-center), leading with the chin with a big, open, wide gape and body close to mother. Discussed with mother the importance of using the sandwich technique to help encouraged infant to latch deeper protecting her nipple. Infant latched optimally to the left breast incross cradle position. Education given to the mother of how to visualize the suckling (with good rocking jaw motion), swallows (dropping of the lower jaw) and how to listen for drinking at the breast (the ka sound). was able to maintain latch without pain to mother protecting the nipple with optimal positioning and latching. We discussed as a group how to support the optimal latch to prevent from slipping of the breast to a shallow latch, watching for swallowing and detaching if there's a pinchy or biting pain. Reviewed comfort measures of healing with a warm, wet washcloth to rinse breast, then leave open to air-dry, good handwashing when or touching the breast/nipples to prevent infection. Mother voiced understanding of skin to skin, stimulating with massage touch, responsive feedings, hand expressed colostrum, talking to to encourage on demand or if it has been 2 -2.5 hours since the start of the last , to call if infant does not latch, or if there is discomfort with . Resources used for education were facilitated with the visual educational handouts, tool, mom and baby guide, Inpatient/outpatient resources provided with feeding sheet, name written on the communication board, and the mom/baby guide. Parents voiced understanding of information, demonstrated learning and will call if there is a request for assistance. Reported to the Primary RN.
[2023-01-27] MEDS: IBUPROFEN 600 MG TABLET PO ×2 (02:15→10:09)
[2023-01-27] MEDS: ACETAMINOPHEN 325 MG TABLET 650 MG PO ×2 (02:17→10:09)
[2023-01-27 08:00] VITALS: PULSE 91; RESP 18; O2SAT 100
--- NOTE | 2023-01-27 08:07 | P.PNOB_ITS ---
OB - PN: Subj Subjective Date/time seen: 01/27/23 0730 Interval history: Doing well. Urinating without difficulty. Denies passing any large clots. Denies dizziness with ambulating. Tolerating po food and fluids. Bonding with infant. BP normal range overnight. No GILBERT, visual changes, RUQ pain, or increase in edema. Concerned about infant latching. Patient comments: no complaints and pain well controlled [place] baby status: nursing well (latch issues overninght) feeding status: exclusively breast feeding OB - PN: Obj Data Labs 01/26/23 03:49 01/25/23 00:22 OB - PN A/P Plan day: 2 Plan: discharge home Time Spent With Patient Time: Total time spent is greater than 50% in coordination of care (as documented) at patient's floor/unit and/or counseling patient: Review of Systems Review of Systems: All systems reviewed & are unremarkable except as noted in HPI and below Exam Narrative: Alert and oriented. Mood is pleasant and cooperative. Perineum with minimal edema. Fundus firm and below umbilicus. Const: General: cooperative, healthy appearing, no acute distress and alert Orientation/consciousness: patient oriented x3 Limitations: no limitations Resp: Effort & Inspection: normal respiratory effort and able to speak in complete sentences Auscultation: clear to auscultation bilaterally Cardio: Rate: regular rate GI: Inspection: normal to inspection Auscultation: normal bowel sounds : General: Yes bladder normal to palpation External Female Exam: other (lochia WNL) Bimanual exam- vagina & uterus: bladder normal to palpation Other: Fundus firm and below U Skin: General skin exam: normal color and no rashes or lesions noted Neuro: General: patient oriented x3 and moves all extremities Cognition (Neuro): normal cognition Extrem: General: normal to inspection and no calf tenderness Right lower extremity: edema Details: pitting and 1+ Left lower extremity: edema Details: pitting and 1+ Psych: Appearance: grossly normal Mental Status: mental status grossly normal Affect: normal affect Thought process: Normal thought process present
[2023-01-27 08:20] VITALS: BP 116/73; PULSE 91; RESP 18; TEMP 36.2; O2SAT 100
--- NOTE | 2023-01-27 09:42 | PC.NURSE ---
Patient viewed the discharge video Mother & Baby Care, The First Two Weeks . Patient was given the opportunity and encouraged to ask questions. Patient verbalized understanding of information shared and has been given the mother/baby guide for home reference.
[2023-01-27] MEDS: MULTIVIT/MIN/PREN/FOL AC/IRON TABLET 1 TAB PO (10:11)
[2023-01-27] MEDS: DOCUSATE SODIUM 100 MG CAPSULE PO (10:11)
--- NOTE | 2023-01-27 12:43 | PC.NURSE ---
1000 Mother verbalizes she is able to independently latch infant with appropriate positioning and alignment. She denies any nipple discomfort with present feedings and is responsively . Mother is aware that she can express her breast milk onto her nipples after each feeding to resolve soreness and also has lanolin at the bedside. is currently meeting outcomes for weight, output, jaundice, blood sugar and feeding frequencies of 8-12 times in 24 hours. Mother declines any additional assistance or education at this time. Mother is encouraged to call for assistance if her infant doesn?t latch, pain with latching, questions or concerns. Mother voiced understanding of information shared along with the mom/baby guide for an additional resource. Reported to the Primary RN.
[2023-01-28 08:31] VITALS: BP 127/79; PULSE 78; RESP 18; TEMP 36.9; O2SAT 100
== END 2023-01-27 15:10 | disposition home or self-care (01) | DRG 807 ==
LOC: ANHLDR 22:31 → ANHOB2 01-26 01:31
PROVIDERS: Admitting Provider Obstetrics & Gynecology Gynecology; PCP Nurse Practitioner Family; Referring Provider Advanced Practice Midwife; Visit Provider Obstetrics & Gynecology Gynecology
DX: O14.94 Unspecified pre-eclampsia, complicating childbirth (principal); Z37.0 Single live birth; Z3A.37 37 weeks gestation of pregnancy; O32.6XX0 Maternal care for compound presentation, not applicable or unspecified; O70.1 Second degree perineal laceration during delivery; O99.344 Other mental disorders complicating childbirth; F41.9 Anxiety disorder, unspecified; F32.A Depression, unspecified
CPT/HCPCS: 36415; 80053; 84550; 85014; 85018; 85025; 86592; 86703; 86850; 86900; 86901; 88307; A9270; G0432; J0290; J2405; J2590; J2795; J3010; J7120

== ENCOUNTER 2023-05-26 08:58 | Outpatient (CLI) | payer OTHER, SELFPAY ==
[2023-05-26 09:18] LABS: Hemoglobin 13.6 g/dL (12.0-15.0); Mean Corpuscular HGB Conc 33.2 g/dl (32-36); Mean Corpuscular Volume 84.4 fl (80-100); Mean Platelet Volume 10.1 fl (7.4-10.4); Platelet Count Result 252 k/mm3 (150-375); Red Blood Count 4.86 M/mm3 (4.2-5.4); Red Cell Distribution Width 12.8 % (11.5-14.5); White Blood Count 4.2 K/mm3 (4.5-10.0)
[2023-05-26 09:35] LABS: Alanine Aminotransferase 26 U/L (6-35); Albumin Level 4.4 g/dL (3.5-5.1); Alkaline Phosphatase 74 U/L (38-126); Anion Gap 8 mmol/L (4-12); Aspartate Amino Transferase 24 U/L (14-36); Bilirubin,Total 0.6 mg/dL (0.2-1.3); Blood Urea Nitrogen 11 mg/dL (7-17); CRP 0.5 mg/dL (<1.0); Calcium 9.3 mg/dL (8.4-10.2); Carbon Dioxide 26 mmol/L (22-30); Chloride 104 mmol/L (98-107); Estimated Glomerular Filt Rate > 60; Glucose 93 mg/dL (65-110); Potassium 3.8 mmol/L (3.4-5.0); Sodium 138 mmol/L (137-145)
[2023-05-26 09:45] LABS: Erythrocyte Sedimentation Rate 15 mm/hr (0-20)
[2023-06-01 18:32] LABS: Anti Nuclear Antibody Pattern Nuclear, Speckled
[2023-06-02 12:06] LABS: Immunoglobulin A 41 mg/dL (47-310); TTG IGA AB <1.0 U/mL (<15.0); Tissue Transglutaminase IgG Ab <1.0 U/mL (<15.0)
== END 2023-05-26 08:59 | disposition home or self-care (01) ==
LOC: ANHLAB 08:59
PROVIDERS: PCP Nurse Practitioner Family; Visit Provider Nurse Practitioner
DX: K52.9 Noninfective gastroenteritis and colitis, unspecified (principal); R15.2 Fecal urgency; R10.9 Unspecified abdominal pain
CPT/HCPCS: 36415; 80053; 82784; 84443; 85027; 85652; 86038; 86039; 86140; 86364

== ENCOUNTER 2023-06-22 06:29 | Day surgery (SDC) | payer OTHER, SELFPAY ==
[2023-05-29 10:06] VITALS: BMI 26.9
[2023-06-08 10:43] VITALS: BMI 27.3
--- NOTE | 2023-06-21 11:25 | WPDANESEPPF ---
Anes - Initial Pre Proc Eval Procedure: Operation Date: 06/22/23 08:00 Proposed Procedures p Esophagogastroduodenoscopy - Abdi Flowers MD s Diagnostic Colonoscopy - Abdi Flowers MD Date/Time: 06/21/23 11:25 Surgeon: Abdi Flowers MD Pre Op Diagnosis: Unspecified ABD Pain, fecal urgency, Patient Data Age: 27 Gender: F Height: 1.6 m Weight: 70 kg Allergies Allergy/AdvReac Type Severity Reaction Status Date / Time NKDA Allergy Unknown Uncoded 06/22/23 07:06 Home Medications Medication Instructions Recorded Confirmed Type dicyclomine 10 mg capsule 10 - 20 mg PO QID PRN abdominal 05/26/23 06/08/23 Rx pain #120 caps sodium,potassium,mag sulfates 17.5 See Rx Instructions PO .COMPLEX 05/29/23 06/08/23 Rx gram-3.13 gram-1.6 gram oral soln #354 mL (Suprep Bowel Prep Kit) bupropion HCl 150 mg 24 hr tablet, 150 mg PO DAILY 06/08/23 06/08/23 History extended release colestipol 1 gram tablet (Colestid) 1 g PO HS 06/08/23 06/08/23 History escitalopram oxalate 20 mg tablet 20 mg PO HS 06/08/23 06/08/23 History (Lexapro) metoclopramide HCl 5 mg tablet 5 mg PO Q6-8H PRN Nausea 06/08/23 06/08/23 History Patient hx anesthesia problems: none Family hx anesthesia problems: none Results Review: All pre-operative results and documents have been reviewed as part of the pre-operative evaluation. [facility] Past Medical History Medical History (Updated 06/08/23 @ 12:08 by Marlen Boudreaux NP) Altered bowel habits TANIA positive TANIA positive Anxiety Currently Depression Depression with anxiety Encounter to establish care Family history of cardiovascular disease Fatigue History of sun exposure, moderate Lymphadenopathy normal CBC on 05/06/2021. The CT of the neck on 05/12/2021 revealed no abnormally enlarged lymph nodes. Mother currently breastfeeds Nausea Right upper quadrant pain Shortness of breath on exertion Tinnitus Vertigo Vitamin B12 deficiency anemia (05/06/21) vitamin B12 is low at 260 with goal greater than 400 on 05/06/2021 Surgical History Surgical History History of ear surgery ear drum repair- 2012 & 2013 History of tympanoplasty of right ear Family History Family History Mother Heart disease Depression Anxiety Sibling Depression Anxiety Grandparent Heart disease Cerebrovascular accident Social History Social History Smoking status: Never smoker Alcohol intake: never Substance use: never Substance use type: does not use Lack of Transportation: No Lack of Food: Sometimes True Current Housing: I Have Housing Concerned About Future Housing: No Difficulty Paying Gas/Electric Bills: No Difficulty Paying for Meds: No Currently Unemployed: No Education: Associate Degree Difficulty w/ Childcare or Family Care: No Living arrangements: with family Spiritual care concerns: No Anes - Eval Final PreProcedure Day of Procedure 06/21/23 11:25 Patient weight: overweight Heart: regular rate and rhythm Lungs: clear to auscultation Airway: Mallampati scale class II Neurological: alert and oriented Last oral intake: >/= 8 hours ASA classification: II Emergent: no Anesthetic plan: proceed Anesthesia type and monitoring: general GIVS and standard monitoring Results Review: All pre-operative results and documents have been reviewed as part of the pre-operative evaluation. Informed Consent: The patient's anesthetic plan and its attendant risks and benefits were discussed with the patient/family/POA. Questions were solicited and answers provided to the satisfaction of the patient/family/POA.
[2023-06-22 07:15] VITALS: BP 123/84; PULSE 72; RESP 20; TEMP 36.4; O2SAT 99; BMI 26.3
--- NOTE | 2023-06-22 07:15 | WPDHPUPDATE1 ---
History and Physical Update Update Date/Time: 06/22/23 07:15 Colonoscopy in EGD because of fecal urgency. It is of note that her TANIA level is elevated 1:640 dilution. Also IgA level was low. Celiac panel was negative but there is a consideration whether she may have IgA colonoscopy an EGD will be performed today. History and Physical has been reviewed, including an updated exam of the patient. There are NO changes in the patient's condition. Risks, benefits, and alternatives have been discussed and questions answered. Patient agrees to proceed with procedure.
[2023-06-22] MEDS: LACTATED RINGERS 1,000 ML 150 ML IV CONT (07:27)
[2023-06-22 08:27] VITALS: BP 98/56; PULSE 68; RESP 14; O2SAT 100
[2023-06-22 08:37] VITALS: BP 103/62; PULSE 63; RESP 16; O2SAT 100
[2023-06-22 08:47] VITALS: BP 99/65; PULSE 60; RESP 14; O2SAT 100
[2023-06-22 08:57] VITALS: BP 108/67; PULSE 60; RESP 14; O2SAT 100
== END 2023-06-22 09:06 | disposition home or self-care (01) ==
PROVIDERS: PCP Nurse Practitioner Family; Visit Provider Internal Medicine Gastroenterology
PROC: 0DJ08ZZ Inspection of Upper Intestinal Tract, Via Natural or Artificial Opening Endoscopic (ICD-10-PCS; CPT 43235; principal; 2023-06-22 08:00)
PROC: 0DJD8ZZ Inspection of Lower Intestinal Tract, Via Natural or Artificial Opening Endoscopic (ICD-10-PCS; CPT 45378; 2023-06-22 08:00)
DX: K59.1 Functional diarrhea (principal); R10.84 Generalized abdominal pain
CPT/HCPCS: 45380; 43239

== ENCOUNTER 2023-06-22 07:00 | Outpatient (NON) | payer OTHER, SELFPAY | END 2023-06-22 07:01 | disposition home or self-care (01) | PROVIDERS: PCP Nurse Practitioner Family; Visit Provider Internal Medicine Gastroenterology | DX: K58.9 Irritable bowel syndrome, unspecified (principal) | CPT/HCPCS: 88305 ==

== ENCOUNTER → 2024-04-09 09:00 | Outpatient (CLI) | payer OTHER, SELFPAY ==
--- NOTE | ~2024-04-09 | XR_ITS ---
EXAMINATION: XR sacrum coccyx min 2V DATE: 04/09/2024 09:18 INDICATION: Sacrococcygeal disorders, not elsewhere classified. TECHNIQUE: 3 views of the sacrum and coccyx were obtained. COMPARISON: None. FINDINGS: There is levocurvature of the lumbar spine. No fracture. The sacroiliac joints are normal. IMPRESSION: 1. No fracture. Reviewed, dictated and finalized at location A. MIXER IMPRESSION: 1. No fracture.
--- OUTSIDE RECORDS SUMMARY | 2024-04-09 09:44 | XMS_ITS | Clinical Summary ---
Author Organization [facility] Address [address] [place] [address] Care Team Providers Care Bag Grader Name Role Phone Unavailable Primary Care Provider Unavailabl e Source Comments [facility],non-owned Affiliates and Associated Physician Practices is amultiple site organization consisting of ambulatory clinics and hospital sitesin [place], [place], [place] and [place]. This disclosure is being madepursuant to the Care Everywhere program and may not contain all information available regarding this patient. Last updated 17.[facility] Allergies No known active allergies Medications Be aware that medications may not be up to date on this document. Always verify current medications with the patient. No known medications Social History Tobacco Use Types Packs/Day Years Used Date Smoking Tobacco: Never Assessed Sex and Gender Information Value Date Recorded Sex Assigned at Not on file Gender Identity Not on file Sexual Orientation Not on file Last Filed Vital Signs Vital Sign Reading Time Taken Comments Blood Pressure 110/54 01/17/2016 12:10 PM FRET SAW OPERATOR Pulse 100 01/17/2016 12:10 PM FRET SAW OPERATOR Temperature 37.2 C (98.9 F) 01/17/2016 12:10 PM FRET SAW OPERATOR Respiratory Rate 16 01/17/2016 12:10 PM FRET SAW OPERATOR Oxygen Saturation - - Inhaled Oxygen Concentration - - Weight 57.6 kg (127 lb) 01/17/2016 12:10 PM FRET SAW OPERATOR Height 160 cm (5' 3 ) 01/17/2016 12:10 PM FRET SAW OPERATOR Body Mass Index 22.5 01/17/2016 12:10 PM FRET SAW OPERATOR Plan of Treatment Health Maintenance Due Date Last Done Comments PAP SMEAR 1996 HIV SCREENING 11/27/2011 HEPATITIS C SCREENING 11/22/2014 DTAP/TDAP/TD VACCINES (1 - Tdap) 11/27/2015 HEPATITIS B VACCINE (1 of 3 - 19+ 3-dose series) 11/27/2015 COVID-19 VACCINE (1 - 2023-2 5 season) 2023 INFLUENZA VACCINE (#1) 2023 DEPRESSION SCREENING 02/28/2024 ZOSTER VACCINE (1 of 2) 2046 HIB VACCINE Aged Out No longer eligi ble based on patient's age to complete this topic HPV VACCINE Aged Out No longer eligi ble based on patient's age to complete this topic MENINGOCOCCAL (Group B) VACCINE Aged Out No longer eligible based on patient's age to complete this topic MENINGOCOCCAL VACCINE Aged Out No ailyn britt eligible based on patient's age to complete this topic PNEUMOCOCCAL VACCINE Aged Out No long er eligible based on patient's age to complete this topic Rekha DIANE Personal/Famil y Self 1995 [address] [place] [address] SABA DIANE E Personal/Famil y Spouse [address] [place] [place] [address] SABA DIANE E Personal/Famil y Spouse [address] [place] [place] [address] SABA DIANE E Personal/Famil y [address] [place] [place] [address] SABA DIANE E Personal/Famil y [address] [place] [place] [address]
--- OUTSIDE RECORDS SUMMARY | 2024-04-09 09:44 | XMS_ITS | Referral Summary ---
Author Organization [facility] Address [address] [place] [address] Care Team Providers Care Ham Boner Name Role Phone Unavailable Primary Care Provider Unavailabl e Source Comments [facility],non-owned Affiliates and Associated Physician Practices is amultiple site organization consisting of ambulatory clinics and hospital sitesin [place], [place], [place] and [place]. This disclosure is being madepursuant to the Care Everywhere program and may not contain all information available regarding this patient. Last updated 17.[employer] [facility] Allergies No known active allergies Medications Be [...] Comments Blood Pressure 110/54 01/17/2016 12:10 PM TELETYPE TELEGRAPHER Pulse 100 01/17/2016 12:10 PM TELETYPE TELEGRAPHER Temperature 37.2 C (98.9 F) 01/17/2016 12:10 PM TELETYPE TELEGRAPHER Respiratory Rate 16 01/17/2016 12:10 PM TELETYPE TELEGRAPHER Oxygen Saturation - - Inhaled Oxygen Concentration - - Weight 57.6 kg (127 lb) 01/17/2016 12:10 PM TELETYPE TELEGRAPHER Height 160 cm (5' 3 ) 01/17/2016 12:10 PM TELETYPE TELEGRAPHER Body Mass Index 22.5 01/17/2016 12:10 PM TELETYPE TELEGRAPHER Plan of Treatment Not on file SABA DIANE Personal/Famil y [address] [place] [address] SABA DIANE Personal/Famil y [address] [place] [address]
--- OUTSIDE RECORDS SUMMARY | 2024-04-09 09:44 | XMS_ITS | Clinical Summary ---
Author Organization [facility] Address [address] [place] [id number] Care Team Providers Care Gate Services Supervisor Name Role Phone Marlen Boudreaux Primary Care Provider [phone] Allergies No known active allergies Medications escitalopram (LEXAPRO) 20 MG tablet Take 1 tablet (20 mg total) by mouth daily. 07/06/2022 Active metoclopramide (REGLAN) 5 MG tablet Take 1 tablet (5 mg total) by mouth every 6 (six) hours as needed. 07/04/2022 Active buPROPion XL (WELLBUTRIN XL) 150 MG 24 hr tablet Take 1 tablet (150 mg total) by mouth daily. Active vitamin (VINATE M) 27-1 MG Tab tablet Take 1 tablet by mouth daily. Active Social History Tobacco Use Types Packs/Day Years Used Date Smoking Tobacco: Never Smokeless Tobacco: Never Tobacco Cessation:Counseling Given: Not Answered Estimated Date of Delivery Comme nts Yes 02/15/2023 Sex and Gender Information Value Date Recorded Sex Assigned at Not on file Legal Sex Female 1:43 PM CDT Gender Identity Not on file Sexual Orientation Not on file Last Filed Vital Signs Vital Sign Reading Time Taken Comments Blood Pressure 114/69 07/11/2022 2:05 PM CDT Pulse 79 07/11/2022 2:05 PM CDT Temperature 36.7 C (98 F) 07/11/2022 2:05 PM CDT Respiratory Rate 18 07/11/2022 2:05 PM CDT Oxygen Saturation 100% 07/11/2022 2:05 PM CDT Inhaled Oxygen Concentration - - Weight 64 kg (141 lb) 07/11/2022 2:05 PM CDT Height 160 cm (5' 3 ) 07/11/2022 2:05 PM CDT Body Mass Index 24.98 07/11/2022 2:05 PM CDT Plan of Treatment Health Maintenance Due Date Last Done Comments Cervical Cancer Screening Pa p Smear (Age 21 to 29) Every 3 Years 1996 Cervical Cancer Screening 1996 Annual Physical 11/27/1999 Hepatitis C 2014 DTaP, Tdap and Td Vaccines ( 1 - Tdap) 11/27/2015 Hepatitis B Vaccines (1 of 3 - 19+ 3-dose series) 11/27/2015 COVID-19 Vaccine ( - 2023-2 5 season) 2023 Influenza Adult (#1) 2023 RSV Immunization or 60+ Years (1 - 1-dose 75+ series) 11/27/2071 HPV Vaccines Aged Out No longer eligi ble based on patient's age to complete this topic Meningococcal B Vaccine Aged Out No l onger eligible based on patient's age to complete this topic Meningococcal Vaccine Aged Out No ailyn britt eligible based on patient's age to complete this topic Pneumococcal Vaccine: Pediat rics (0 to 5 Years) and At-Risk Patients (6 to 64 Years) Aged Out No longer eligible b ased on patient's age to complete this topic RSV Immunizations Under 20 Months Aged Out No longer eligible based on patient's age to complete this topic Insurance [facility] Care Teams Gate Services Supervisor Relationship Specialty Start Date End Date Marlen Boudreaux APNP [address] [id number] PCP - General Nurse Practitioner Family 07/11/22
--- OUTSIDE RECORDS SUMMARY | 2024-04-09 09:44 | XMS_ITS | Patient Health Summary ---
Author Organization [facility] Address [address] [place] [address] Care Team Providers Care Supervisor [employer] Name Role Phone Unavailable Primary Care Provider Unavailabl e Note from [facility] [place],non-owned Affiliates and Associated Physician Practices is amultiple site organization consisting of ambulatory clinics and hospital sitesin [place], [place], [place] and [place]. This disclosure is being madepursuant to the Care Everywhere program and may not contain all information available regarding this patient. Last updated 17.[facility] Allergies No known active allergies Medications Be [...] Comments Blood Pressure 110/54 01/17/2016 12:10 PM HUMAN RESOURCES COMPLIANCE MANAGER Pulse 100 01/17/2016 12:10 PM HUMAN RESOURCES COMPLIANCE MANAGER Temperature 37.2 C (98.9 F) 01/17/2016 12:10 PM HUMAN RESOURCES COMPLIANCE MANAGER Respiratory Rate 16 01/17/2016 12:10 PM HUMAN RESOURCES COMPLIANCE MANAGER Oxygen Saturation - - Inhaled Oxygen Concentration - - Weight 57.6 kg (127 lb) 01/17/2016 12:10 PM HUMAN RESOURCES COMPLIANCE MANAGER Height 160 cm (5' 3 ) 01/17/2016 12:10 PM HUMAN RESOURCES COMPLIANCE MANAGER Body Mass Index 22.5 01/17/2016 12:10 PM HUMAN RESOURCES COMPLIANCE MANAGER Procedures * DERMATOPATHOLOGY(Performed 02/17/2022) * DERMATOPATHOLOGY(Performed 02/08/2022) * STREP A SCREEN - POINT OF CARE (AMB) STL(Performed 01/17/2016) Performed for Acute pharyngitis, unspecified etiology Results * DERMATOPATHOLOGY (02/17/2022 12:00 AM HUMAN RESOURCES COMPLIANCE MANAGER) Only the most recent of2 resultswithin the time period is included. 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 Derm[facility] Lab Received: 02/18/2022 07:23 AM Pathologist: Abi Mills MD Specimens: A) - Skin, right abdomen B) - Skin, left abdomen C) - Skin, left upper abdomen/chest 2 3:20 PM [facility] Final Diagnosis Specimen A. SKIN, right abdomen: INTRADERMAL MELANOCYTIC NEVUS WITH CONGENITAL FEATURES (D22.9) Specimen B. SKIN, left abdomen: COMPOUND NEVUS WITH CONGENITAL FEATURES (D22.5) Specimen C. SKIN, left upper abdomen/chest: COMPOUND NEVUS WITH CONGENITAL FEATURES (D22.5) 2 3:20 PM [facility] Clinical History A-C: R/O: Nevus, Irritated 2 3:20 PM [facility] Gross Description Specimen A: Received is one formalin filled container labeled with the patient's name and designated right abdomen. The specimen consists of a shave biopsy measuring [id number]. Jar 0. Specimen B: Received is one formalin filled container labeled with the patient's name and designated left abdomen. The specimen consists of a shave biopsy measuring [id number]. Jar 0. Specimen C: Received is one formalin filled container labeled with the patient's name and designated left upper abdomen/chest. The specimen consists of a shave biopsy measuring [id number]. Jar 0. 2 3:20 PM [facility] Microscopic Description Specimen A. SKIN, right abdomen: There are nests of cytologically bland melanocytes within the dermis. Some of these melanocytes are concentrated around blood vessels and adnexal structures. Specimen B. SKIN, left abdomen: There are nests of melanocytes at the dermal-epidermal junction and within the dermis. Some melanocytes are splayed between collagen bundles and are localized around adnexal structures. Specimen C. SKIN, left upper abdomen/chest: There are nests of melanocytes at the dermal-epidermal junction and within the dermis. Some melanocytes are splayed between collagen bundles and are localized around adnexal structures. 2 3:20 PM HUMAN RESOURCES COMPLIANCE MANAGER DERMATOPATHOLOGY LABORATORY Disclaimer An external and internal positive and negative controls are appropriate for the histochemical, immunohistochemical and immunofluorescence stain(s) in this case (if any), except where stated explicitly. The performance characteristics of the stain(s) cited in this report were developed and its performance characteristic determined by the Dermatopathology Laboratory at [facility], directed by Dr. Joseph Brown. These tests need not be, and therefore are not, approved by the [place] Food and Drug Administration. The tests are used for clinical purposes. Billing Codes Specimen Charges Stain Charges 35073 [id number] 1 1 1 2 3:20 PM HUMAN RESOURCES COMPLIANCE MANAGER DERMATOPATHOLOGY LABORATORY Embedded Images 2 3:20 PM HUMAN RESOURCES COMPLIANCE MANAGER DERMATOPATHOLOGY LABORATORY Pathology/Cytology TISSUE SPECIMEN FROM SKIN / Unknown 02/17/2022 02/18/2022 7:23 AM HUMAN RESOURCES COMPLIANCE MANAGER Miscellaneous samples (specimen) TISSUE SPECIMEN FROM SKIN / Unknown 02/17/2022 02/18/2022 7:23 AM HUMAN RESOURCES COMPLIANCE MANAGER Miscellaneous samples (specimen) TISSUE SPECIMEN FROM SKIN / Unknown 02/17/2022 02/18/2022 7:23 AM HUMAN RESOURCES COMPLIANCE MANAGER Tiff Caldwell APRN-[facility] - PATH OLOGY/CYTOLOGY ORDERABLES DERMATOPATHOLOGY LABORATORY [facility] - Department of Dermatology [facility] [address] [place] [address], [address] [phone] * STREP A SCREEN (01/17/2016) Strep A Rapid POCT Negative Negative Strep A Internal Control Present Lot # [id number] Expiration Date [id number] Throat ENTIRE THROAT (SURFACE REGION OF NECK) / Unknown 01/17/2016 Aubrie Sharp WELDING MACHINE OPERATOR HELPER [employer]-RETAIL GREETING CARD MERCHANDISER LAB - POINT O F CARE ORDERABLES
--- OUTSIDE RECORDS SUMMARY | 2024-04-09 09:45 | XMS_ITS | Clinical Summary ---
Author Organization [facility] D Address [address] [place] [id number] Care Team Providers Care Turnaround Engineer Name Role Phone Marlen Boudreaux KELLI Primary Care Provider [phone] Allergies No known active allergies Medications buPROPion XL (WELLBUTRIN XL) 150 mg 24 hr tablet Take 1 tablet (150 mg total) by mouth daily Active escitalopram (LEXAPRO) 20 mg tablet Take 1 tablet (20 mg total) by mouth daily 07/06/2022 Active promethazine (PHENERGAN) 25 mg tablet TAKE 1 TABLET BY MOUTH THREE TIMES DAILY NEEDED FOR NAUSEA OR VOMITING 01/02/2024 Active Active Problems Problem Noted Date Diagnosed Date TANIA positive 03/22/2024 Assessment & Plan (03/22/2024 9:28 AM ROUGE PRESSER): A positive TANIA test means that you have detectable levels of TANIA in your blood. A positive TANIA test is usually reported as both a ratio (called a titer) and a pattern, such as smooth or speckled. Certain diseases are more likely to have certain patterns. The higher the titer, the more likely the result is a t rue positive result, meaning you have significant ANAs and an autoimmune disease. For example, for a ratio of 1:40 or 1:80, the possibility of an autoimmune disorder is considered low. A ratio of 1:640 or greater indicates a higher possibility of autoimmune disorder, but results will need to be analyzed and typically additional tests, imaging, or exam findings are evaluate to either identify or rule out if an autoimmune disease is present. A positive result doesn t always mean that you have an autoimmune disease. Up to 15 percent of completely healthy people have a positive TANIA test. This is called a false-positive test result. In addition, TANIA titers can also increase with age among healthy people. Encounters Date Type Department Care Team Description 03/22/2024 2:18 PM ROUGE PRESSER - 03/22/2024 11:59 PM ROUGE PRESSER Hospital Encounter [address] [phone] Discharge Disposition: Discharge to home or self care 03/22/2024 10:20 AM ROUGE PRESSER - 03/22/2024 11:59 PM ROUGE PRESSER Hospital Encounter [facility] - Imaging [address] [place] [phone] TANIA positive; Pain in other joint; Dry eye; Chronic night sweats Discharge Disposition: Discharge to home or self care 03/22/2024 9:30 AM ROUGE PRESSER Office Visit [facility] Rheumatology at [address] [place] [phone] Lore Montilla NP TANIA positive (Primary Dx); Other specified abnormal immunological findings in serum; Pain in other joint; Dry eye; Chronic night sweats 03/22/2024 Orders Only [facility] INTERFACE [id number] Unknown, Notinfile 01/31/2024 Telephone [facility] Rheumatology at [address] [place] [phone] April Murguia DO Materials Management Clerk Apt from Last 3 Months Family History Relation Name Status Comments Father Alive Mother Alive Social History Tobacco Use Types Packs/Day Years Used Date Smoking Tobacco: Never Assessed Comments Unknown Sex and Gender Information Value Date Recorded Sex Assigned at Not on file Legal Sex Female 11:02 AM CDT Gender Identity Not on file Sexual Orientation Not on file Obstetrics History Last Filed Vital Signs Vital Sign Reading Time Taken Comments Blood Pressure 110/70 03/22/2024 9:06 AM ROUGE PRESSER Pulse 74 03/22/2024 9:06 AM ROUGE PRESSER Temperature 36.4 C (97.5 F) 03/22/2024 9:06 AM ROUGE PRESSER Respiratory Rate 18 03/22/2024 9:06 AM ROUGE PRESSER Oxygen Saturation 99% 03/22/2024 9:06 AM ROUGE PRESSER Inhaled Oxygen Concentration - - Weight 60.8 kg (134 lb) 03/22/2024 9:06 AM ROUGE PRESSER Height 160 cm (5' 3 ) 03/22/2024 9:06 AM ROUGE PRESSER Body Mass Index 23.74 03/22/2024 9:06 AM ROUGE PRESSER Plan of Treatment Health Maintenance Due Date Last Done Comments Cervical Cancer Screening 1996 Depression Screening 1996 Hepatitis C Screening 1996 DTaP/Tdap/Td Vaccine (1 - Tdap) 11/27/2007 Varicella Vaccines (1 of 2 - 13+ 2-dose series) 2009 Hepatitis B Screening 2014 Regular Well Visit/Exam 18-64 2014 Influenza Vaccine (#1) 2023 HPV Vaccines Aged Out No longer eligi ble based on patient's age to complete this topic Pneumococcal vaccine <65 Aged Out No longer eligible based on patient's age to complete this topic Procedures Procedure Name Priority Date/Time Associated Diagnosis Comments XR CHEST PA LATERAL 2 VIEWS Schedule Routine, Read Routine (OP Routine) 03/22/2024 10:42 AM ROUGE PRESSER TANIA positive Pain in other joint Dry eye Chronic night sweats XR FOOT BILATERAL 3 OR MORE VIEWS OF EACH Schedule Routine, Read Routine (OP Routine) 03/22/2024 10:42 AM ROUGE PRESSER TANIA positive Pain in other joint XR HAND BILATERAL 3 OR MORE VIEWS OF EACH Schedule Routine, Read Routine (OP Routine) 03/22/2024 10:42 AM ROUGE PRESSER TANIA positive Pain in other joint XR SACROILIAC JOINTS 3 OR MORE VIEWS Schedule Routine, Read Routine (OP Routine) 03/22/2024 10:42 AM ROUGE PRESSER TANIA positive Pain in other joint HLA DISEASE ASSOCIATION B 27 Routine 03/22/2024 9:59 AM ROUGE PRESSER EGFR Routine 03/22/2024 9:59 AM ROUGE PRESSER TANIA positive Pain in other joint Dry eye URINALYSIS, MICROSCOPIC ONLY Routine 03/22/2024 9:59 AM ROUGE PRESSER TANIA positive Pain in other joint Dry eye DIFFERENTIAL AUTO Routine 03/22/2024 9:5 9 AM ROUGE PRESSER TANIA positive Pain in other joint Dry eye IRON PROFILE W/ IBC Routine 03/22/2024 9 :59 AM ROUGE PRESSER TANIA positive Pain in other joint Dry eye FERRITIN Routine 03/22/2024 9:59 AM ROUGE PRESSER TANIA positive Pain in other joint Dry eye THYROID FUNCTION CASCADE Routine 03/22/2024 9:59 AM ROUGE PRESSER TANIA positive Pain in other joint Dry eye ERYTHROCYTE SEDIMENTATION RATE Routine 03/22/2024 9:59 AM ROUGE PRESSER ATNIA positive Pain in other joint Dry eye RHEUMATOID FACTOR Routine 03/22/2024 9:5 9 AM ROUGE PRESSER TANIA positive Pain in other joint Dry eye CHAPIN ANTIBODY EVALUATION WITH REFLEX Routine 03/22/2024 9:59 AM ROUGE PRESSER TANIA positive Pain in other joint Dry eye ANTI-DOUBLE STRANDED DNA ANTIBODIES Routine 03/22/2024 9:59 AM ROUGE PRESSER TANIA positive Pain in other joint Dry eye CYCLIC CITRUL PEPTIDE ANTIBODY, IGG Routine 03/22/2024 9:59 AM ROUGE PRESSER TANIA positive Pain in other joint Dry eye CRP (ACUTE PHASE) Routine 03/22/2024 9:5 9 AM ROUGE PRESSER TANIA positive Pain in other joint Dry eye COMPREHENSIVE METABOLIC PANEL Routine 03/22/2024 9:59 AM ROUGE PRESSER TANIA positive Pain in other joint Dry eye CBC WITH AUTO DIFFERENTIAL Routine 03/22/2024 9:59 AM ROUGE PRESSER TANIA positive Pain in other joint Dry eye C4 COMPLEMENT Routine 03/22/2024 9:59 AM ROUGE PRESSER TANIA positive Pain in other joint Dry eye C3 COMPLEMENT Routine 03/22/2024 9:59 AM ROUGE PRESSER TANIA positive Pain in other joint Dry eye TANIA QUALITATIVE WITH REFLEX TO TANIA QUANTITATIVE Routine 03/22/2024 9:59 AM ROUGE PRESSER TANIA positive Pain in other joint Dry eye RPR Routine 03/22/2024 9:59 AM ROUGE PRESSER TANIA positive Pain in other joint Dry eye DARIO-HOFFMANN VIRUS VCA ANTIBODY PANEL Routine 03/22/2024 9:59 AM ROUGE PRESSER TANIA positive Pain in other joint Dry eye PARVOVIRUS B19 ANTIBODY, IGG AND IGM Routine 03/22/2024 9:59 AM ROUGE PRESSER TANIA positive Pain in other joint Dry eye URINALYSIS AND REFLEX TO MICROSCOPIC AND CULTURE Routine 03/22/2024 9:59 AM ROUGE PRESSER TANIA positive Pain in other joint Dry eye from Last 3 Months Results * XR Foot Bilateral 3 or More Views of Each (03/22/2024 10:42 AM ROUGE PRESSER) Anatomical Region Laterality Modality Lower Extremities, Foot Computed Radiography 03/22/2024 11:0 0 AM ROUGE PRESSER Impressions 03/22/2024 11:00 AM ROUGE PRESSER 1. No characteristic finding of inflammatory arthritis are appreciated. 2. The feet are within expected limits bilaterally. Electronically signed by: Keny Larsen M.D. Narrative 03/22/2024 11:00 AM ROUGE PRESSER Bilateral feet, 3 views each side HISTORY: Joint pain, antinuclear antigen positive, bilateral feet pain COMPARISON: None available.. FINDINGS: Left Foot: There is no evidence of fracture, stress fracture or dislocation. The alignment is within expected limits. The mineralization is within expected limits for age. There is no evidence of an erosion significant intraosseous cystic change or periarticular soft tissue swelling There is no evidence of dystrophic calcification, atypical periosteal reaction or chondrocalcinosis. The joint spaces are preserved. No significant degenerative changes are appreciated. The remainder of the examination is within expected limits. Right Foot: There is no evidence of fracture, stress fracture or dislocation.. The alignment is within expected limits. The mineralization is within expected limits for age. There is no evidence of an erosion significant intraosseous cystic change or periarticular soft tissue swelling There is no evidence of dystrophic calcification, atypical periosteal reaction or chondrocalcinosis. The joint spaces are preserved. No significant degenerative changes are appreciated. The remainder of the examination is within expected limits. Procedure Note Keny Larsen MD - 03/22/2024 Bilateral feet, 3 views each side HISTORY: Joint pain, antinuclear antigen positive, bilateral feet pain COMPARISON: None available.. FINDINGS: Left Foot: There is no evidence of fracture, stress fracture or dislocation. The alignment is within expected limits. The mineralization is within expected limits for age. There is no evidence of an erosion significant intraosseous cystic change or periarticular soft tissue swelling There is no evidence of dystrophic calcification, atypical periosteal reaction or chondrocalcinosis. The joint spaces are preserved. No significant degenerative changes are appreciated. The remainder of the examination is within expected limits. Right Foot: There is no evidence of fracture, stress fracture or dislocation.. The alignment is within expected limits. The mineralization is within expected limits for age. There is no evidence of an erosion significant intraosseous cystic change or periarticular soft tissue swelling There is no evidence of dystrophic calcification, atypical periosteal reaction or chondrocalcinosis. The joint spaces are preserved. No significant degenerative changes are appreciated. The remainder of the examination is within expected limits. IMPRESSION: 1. No characteristic finding of inflammatory arthritis are appreciated. 2. The feet are within expected limits bilaterally. Electronically signed by: Keny Larsen M.D. Lore Montilla NP IMG XR PROCEDURES Final Resul t * XR Hand Bilateral 3 or More Views of Each (03/22/2024 10:42 AM ROUGE PRESSER) Anatomical Region Laterality Modality Upper Extremities, Hand Computed Radiography 03/22/2024 10:5 8 AM ROUGE PRESSER Impressions 03/22/2024 10:58 AM ROUGE PRESSER Left hand: 1. No characteristic findings of inflammatory arthritis are appreciated. 2. Otherwise negative left hand radiographic examination. Right hand: 1. No characteristic findings of inflammatory arthritis are appreciated. 2. Otherwise negative right hand radiographic examination. COMMENT: Please see above for additional findings. Electronically signed by: Keny Larsen M.D. Narrative 03/22/2024 10:58 AM ROUGE PRESSER Bilateral hands, 3 views each side HISTORY: Bilateral hand pain, Joint pain, antinuclear antigen positive COMPARISON: None available.. FINDINGS: Left Hand: There is no evidence of fracture, stress fracture or dislocation. No significant soft tissue swelling is apparent radiographically. The alignment is within expected limits. The mineralization is within expected limits for age. There is no evidence of an erosion, significant intraosseous cystic change or periarticular soft tissue swelling. There is no evidence of dystrophic calcification, atypical periosteal reaction or chondrocalcinosis. The joint spaces are preserved. No significant degenerative changes are appreciated. The remainder of the examination is within expected limits. Right Hand: There is no evidence of fracture, stress fracture or dislocation. Soft tissue swelling is not significantly radiologically apparent. The mineralization is within expected limits for age. The alignment is within expected limits. No periarticular swelling is appreciated. There is no evidence of an erosion, significant intraosseous cystic change. The joint spaces are preserved. There is no evidence of dystrophic calcification, atypical periosteal reaction or chondrocalcinosis. No significant degenerative joint disease is appreciated. There is no gross evidence of a joint effusion. The remainder of the examination is within expected limits. Procedure Note Keny Larsen MD - 03/22/2024 Bilateral hands, 3 views each side HISTORY: Bilateral hand pain, Joint pain, antinuclear antigen positive COMPARISON: None available.. FINDINGS: Left Hand: There is no evidence of fracture, stress fracture or dislocation. No significant soft tissue swelling is apparent radiographically. The alignment is within expected limits. The mineralization is within expected limits for age. There is no evidence of an erosion, significant intraosseous cystic change or periarticular soft tissue swelling. There is no evidence of dystrophic calcification, atypical periosteal reaction or chondrocalcinosis. The joint spaces are preserved. No significant degenerative changes are appreciated. The remainder of the examination is within expected limits. Right Hand: There is no evidence of fracture, stress fracture or dislocation. Soft tissue swelling is not significantly radiologically apparent. The mineralization is within expected limits for age. The alignment is within expected limits. No periarticular swelling is appreciated. There is no evidence of an erosion, significant intraosseous cystic change. The joint spaces are preserved. There is no evidence of dystrophic calcification, atypical periosteal reaction or chondrocalcinosis. No significant degenerative joint disease is appreciated. There is no gross evidence of a joint effusion. The remainder of the examination is within expected limits. IMPRESSION: Left hand: 1. No characteristic findings of inflammatory arthritis are appreciated. 2. Otherwise negative left hand radiographic examination. Right hand: 1. No characteristic findings of inflammatory arthritis are appreciated. 2. Otherwise negative right hand radiographic examination. COMMENT: Please see above for additional findings. Electronically signed by: Keny Larsen M.D. us Lore Montilla PRINT GRAPHIC DESIGNER IMG XR PROCEDURES Final Resul t * XR Sacroiliac Joints 3 or More Views (03/22/2024 10:42 AM ROUGE PRESSER) Anatomical Region Laterality Modality Pelvis, Body N/A Computed Radiogr aphy 03/22/2024 10:5 6 AM ROUGE PRESSER Impressions 03/22/2024 10:56 AM ROUGE PRESSER 1. The sacroiliac joints are within expected limits. COMMENT: Please see above for additional findings. Electronically signed by: Keny Larsen M.D. Narrative 03/22/2024 10:56 AM ROUGE PRESSER Sacroiliac joints, 3 views HISTORY: Joint pain, antinuclear antigen positive Comparison: None available. FINDINGS: The sacroiliac joints are within expected limits without evidence of fusion, erosion or unusual sclerosis. The bony neuroforamina are symmetric. The hip joints are within expected limits bilaterally. The lower lumbar spine is within expected limits. Procedure Note Keny Larsen MD - 03/22/2024 Sacroiliac joints, 3 views HISTORY: Joint pain, antinuclear antigen positive Comparison: None available. FINDINGS: The sacroiliac joints are within expected limits without evidence of fusion, erosion or unusual sclerosis. The bony neuroforamina are symmetric. The hip joints are within expected limits bilaterally. The lower lumbar spine is within expected limits. IMPRESSION: 1. The sacroiliac joints are within expected limits. COMMENT: Please see above for additional findings. Electronically signed by: Keny Larsen M.D. Lore Montilla NP IMG XR PROCEDURES Final Resul t * XR Chest Pa Lateral 2 Views (03/22/2024 10:42 AM ROUGE PRESSER) Anatomical Region Laterality Modality Body, Chest N/A Computed Radiogr aphy 03/22/2024 11:0 0 AM ROUGE PRESSER Impressions 03/22/2024 11:00 AM ROUGE PRESSER 1. Negative chest radiograph. COMMENT: Please see above for additional findings. Electronically signed by: Keny Larsen M.D. Narrative 03/22/2024 11:00 AM ROUGE PRESSER Chest Radiograph, 2 views HISTORY: chronic fatigue, night sweats, Joint pain, antinuclear antigen positive COMPARISON: None available A chest radiograph in the PA and lateral projection was presented. FINDINGS: The osseous structures and chest wall are grossly within expected limits. There is no evidence of pneumothorax. The mediastinum and garland within expected limits. The cardiac silhouette within normal size limits. The lateral and posterior costophrenic angles are preserved bilaterally. No definite infiltrates, suspicious opacities or abnormal interstitial markings are appreciated. The included portion of the upper abdomen is within expected limits. Procedure Note Keny Larsen MD - 03/22/2024 Chest Radiograph, 2 views HISTORY: chronic fatigue, night sweats, Joint pain, antinuclear antigen positive COMPARISON: None available A chest radiograph in the PA and lateral projection was presented. FINDINGS: The osseous structures and chest wall are grossly within expected limits. There is no evidence of pneumothorax. The mediastinum and garland within expected limits. The cardiac silhouette within normal size limits. The lateral and posterior costophrenic angles are preserved bilaterally. No definite infiltrates, suspicious opacities or abnormal interstitial markings are appreciated. The included portion of the upper abdomen is within expected limits. IMPRESSION: 1. Negative chest radiograph. COMMENT: Please see above for additional findings. Electronically signed by: Keny Larsen M.D. Lore Montilla NP IMG XR PROCEDURES Final Resul t * (ABNORMAL) TANIA ab ql w/rflx to TANIA qn (03/22/2024 9:59 AM ROUGE PRESSER) TANIA Positive 1:2560 Comment: Interpretive Data Normal range for TANIA Qualitative Antibody = Negative. 1. TANIA is performed using indirect immunofluorescence against HEp-2 cells 2. TANIA titers are performed on all positive qualitative results. 3. A significantly positive TANIA result is defined as a positive nuclear fluorescence at a titer of 1:80 or greater. 4. 15% of normal people above age 65 have significantly positive TANIA results. 5% or less of normal people age 65 or under have significantly positive TANIA results. Current interpretive data was last revised on 2019. Testing performed by: [facility], [address] [place] [address]., [id number] TANIA, quant 1:2560 titer [facility] Comment:Testing performed by : [facility], [address] [place] [address]., [id number] TANIA, interp Speckled(A) [facility] Comment:Testing performed by : [facility], [address] [place] [address]., [id number] Blood 03/22/2024 9:59 AM ROUGE PRESSER 03/22/2024 4:47 PM ROUGE PRESSER us Lore Montilla PRINT GRAPHIC DESIGNER LAB BLOOD ORDERABLES Final Re sult [facility] [address] Department of Laboratories [place], [place] [id number] * HLA disease association B 27 (03/22/2024 9:59 AM ROUGE PRESSER) HLA-B27 interp HLA-B*27 is Negative. [facility]OT[facility]AC 03/22/2024 9:59 AM ROUGE PRESSER 03/26/2024 10:09 AM ROUGE PRESSER Narrative HISTOTRAC - 03/26/2024 10:09 AM ROUGE PRESSER HLA-B typing is performed using the reverse sequence specific oligonucleotide (r-SSO) method, which is based on an FDA approved IVD kit and validated by the [facility] laboratory. Interpretive comments: HLA-B*27 positivity confers increased risk for ankylosing spondylitis or nonradiographic axial spondyloarthritis. The absence of HLA-B*27 may help rule out these diagnoses Expected: HLA-B*27 has been found in 74% to 89% of patients with either nonradiographic axial spondyloarthritis or ankylosing spondylitis. The absolute risk of spondyloarthritis in persons with HLA-B*27 is 2% to 10%. (N Engl J Med 2016;374:2563-74) Testing performed at the [facility], [address] [place] [address], 5th floor, [place], [address]. [facility] # [id number]. Trudi Barraza, Ph.D., Vocational Director, HLA Laboratory Rhett Guerra M.D., Ph.D., Mutual Fund Manager, HLA Laboratory Dori Hurtado, Ph.D., CLIA Mutual Fund Manager, [facility] Current methodology and interpretive comments were last revised on 09/19/2016 us Notinfile Unknown LAB BLOOD ORDERABLES Final Res ult Performing Organization Address City/[facility] [address]/[facility] Co de Phone Number HISTOTRAC * Anti-double stranded DNA abs (03/22/2024 9:59 AM ROUGE PRESSER) Pathologist [facility] dsDNA Ab <1.0 <=4.0 IUnits/mL Comment: Interpretive Data Negative: < or = 4 IUnits/mL Indeterminate: 5 - 9 IUnits/mL Positive: > or = 10 IUnits/mL Current interpretive data was last revised on 2016. Testing performed by: [facility], [address] [place] [address]., [id number] Blood 03/22/2024 9:59 AM ROUGE PRESSER 03/22/2024 4:47 PM ROUGE PRESSER us Lore Montilla PRINT GRAPHIC DESIGNER LAB BLOOD ORDERABLES Final Re sult [facility] [address] [place] [address] * eGFR (03/22/2024 9:59 AM ROUGE PRESSER) Pathologist [facility] eGFR >90 >=60 mL/min/1. 73 m2 Comment: Interpretive Data Reference Interval Normal >/= 90 mL/min/1.73m2 Mildly decreased* 60 - 89 mL/min/1.73m2 Mildly to moderately decreased 45 - 59 mL/min/1.73m2 Moderately to severely decreased 30 - 44 mL/min/1.73m2 Severely decreased 15 - 29 mL/min/1.73m2 Kidney Failure < 15 mL/min/1.73m2 *Relative to young adult level Estimated glomerular filtration rate is determined by the 2020 CKD-EPI equation recommended by the National Kidney Foundation (A Unifying Approach to GFR Estimation: Recommendations of the NKF-ASK Task Force on Reassessing the Inclusion of Race in Diagnosing Kidney Disease, JASN 2020). The CKD-EPI equation should not be used for patients with unstable renal function and has not been validated in children and those over 70. Current interpretive data was last reviewed 2020. Blood 03/22/2024 9:59 AM ROUGE PRESSER 03/22/2024 2:40 PM ROUGE PRESSER us Lore Montilla PRINT GRAPHIC DESIGNER LAB BLOOD ORDERABLES Final Re sult [facility] [address] Department [place] [address] * Differential, auto (03/22/2024 9:59 AM ROUGE PRESSER) Pathologist [facility] Neutrophil abs 2.5 1.5 - 6.5 K/cumm Imm gran abs 0.0 0.0 - 0.1 K/cumm [facility] Lymphocyte abs 1.4 0.8 - 3.3 K/cumm [facility] Monocyte abs 0.4 0.2 - 0.8 K/cumm [facility] Eosinophil abs 0.1 0.0 - 0.5 K/cumm [facility] Basophil abs 0.0 0.0 - 0.1 K/cumm [facility] Neutrophil pct 56.9 % [facility] Comment: Interpretive Data Percent cell count reference ranges are not reported, since discordance with absolute values may lead to misinterpretation of CBC data. Current Interpretive Data was last revised on 2017. Imm gran pct 0.2 % [facility] Comment: Interpretive Data Percent cell count reference ranges are not reported, since discordance with absolute values may lead to misinterpretation of CBC data. Current Interpretive Data was last revised on 2017. Lymphocyte pct 32.9 % [facility] Comment: Interpretive Data Percent cell count reference ranges are not reported, since discordance with absolute values may lead to misinterpretation of CBC data. Current Interpretive Data was last revised on 2017. Monocyte pct 8.0 % [facility] Comment: Interpretive Data Percent cell count reference ranges are not reported, since discordance with absolute values may lead to misinterpretation of CBC data. Current Interpretive Data was last revised on 2017. Eosinophil pct 1.1 % [facility] Comment: Interpretive Data Percent cell count reference ranges are not reported, since discordance with absolute values may lead to misinterpretation of CBC data. Current Interpretive Data was last revised on 2017. Basophil pct 0.9 % [facility] Comment: Interpretive Data Percent cell count reference ranges are not reported, since discordance with absolute values may lead to misinterpretation of CBC data. Current Interpretive Data was last revised on 2017. Blood 03/22/2024 9:59 AM ROUGE PRESSER 03/22/2024 1:14 PM ROUGE PRESSER Lore Montilla PRINT GRAPHIC DESIGNER LAB BLOOD ORDERABLES Final Re sult [facility] [address] Department [place] [address] * C4 complement (03/22/2024 9:59 AM ROUGE PRESSER) Complement C4 19 10 - 40 mg/dL Blood 03/22/2024 9:59 AM ROUGE PRESSER 03/22/2024 2:40 PM ROUGE PRESSER Lore Montilla PRINT GRAPHIC DESIGNER LAB BLOOD ORDERABLES Final Re sult Performing Organization Address City/[facility] [address]/ZIP Co de Phone Number [facility] [address] [facility] [employer] [place], [place] [id number] * CHAPIN ab eval w/reflex (03/22/2024 9:59 AM ROUGE PRESSER) CHAPIN ab Negative Negative Comment: Interpretive Data Positive Screens will be reflexed to specific testing for Antibodies against the following antigens: Joanne-1 Ab, SWITCHBOARD MECHANIC Ab, Scl-70 Ab, Mills Ab, SS-A/Ro Ab, and SS- B/La Ab. Further testing for dsDNA, Centromere, or Ribosomal P antibodies is suggested in patient with a positive screen and negative specific antibodies. Current interpretive data was last revised on 2022. Testing performed by: [facility], [address] [place] [address] Blood 03/22/2024 9:59 AM ROUGE PRESSER 03/22/2024 4:47 PM ROUGE PRESSER Lore Montilla PRINT GRAPHIC DESIGNER LAB BLOOD ORDERABLES Final Re sult Performing Organization Address [facility] [address]/[facility] Co de Phone Number [facility] [address] [place] [place] [address] * Thyroid Function [place] (03/22/2024 9:59 AM ROUGE PRESSER) TSH 1.29 0.30 - 4.20 mcIUnit/mL Blood 03/22/2024 9:59 AM ROUGE PRESSER 03/22/2024 2:40 PM ROUGE PRESSER Lore Montilla PRINT GRAPHIC DESIGNER LAB BLOOD ORDERABLES Final Re sult Performing Organization Address City/[facility] [address]/ZIP Co de Phone Number [facility] [address] [place] [place] [address] * (ABNORMAL) Iron profile w/ IBC (03/22/2024 9:59 AM ROUGE PRESSER) Iron 48 35 - 145 mcg/dL TIBC 329 250 - 400 mcg/dL [facility] Transferrin saturation 15(L) 20 - 50 % [facility] Blood 03/22/2024 9:59 AM ROUGE PRESSER 03/22/2024 2:40 PM ROUGE PRESSER us Lore Montilla PRINT GRAPHIC DESIGNER LAB BLOOD ORDERABLES Final Re sult Performing Organization Address [facility] [address]/[facility] Co de Phone Number [facility] [address] Department [place] [address] * (ABNORMAL) Urinalysis reflex to microscopic and culture Urine, clean voided (03/22/2024 9:59 AM ROUGE PRESSER) Pathologist [facility] Color, ur Yellow Yellow Clarity, ur Clear Clear [facility] Specific gravity, ur 1.023 1.003 - 1.030 [facility] pH, urine 6.5 [facility] Comment: Interpretive Data U rine pH is affected by diet, medications, systemic acid-base disturbances, and renal tubular function. pH may affect urinary stone formation. For example, urine pH below 6.0 may help reduce the tendency for calcium phosphate stones and pH greater than 6.0 may reduce the tendency for uric acid stone formation. Source: [facility] Current Interpretive Data was last revised on 2017 Protein, ur ql Negative Negative [facility] Glucose, ur ql Negative Negative [facility] Ketones, ur Negative Negative [facility] Bilirubin, ur Negative Negative [facility] Blood, ur Negative Negative [facility] Urobilinogen, ur <2.0 <2.0 mg/dL [facility] Nitrite, ur Negative Negative [facility] Leukocyte esterase, ur 2+(A) Negative [facility] UA reflex comment Reflex to microscopic UA will be performed. [facility] Urine, clean voided 03/22/2024 9:59 AM ROUGE PRESSER 03/22/2024 10:18 AM ROUGE PRESSER us Lore Montilla PRINT GRAPHIC DESIGNER LAB MICROBIOLOGY - GENERAL OR DERABLES Final Result [facility] [address] Department [place] [address] * (ABNORMAL) CBC with auto differential (03/22/2024 9:59 AM ROUGE PRESSER) [facility] WBC 4.4 3.8 - 9.9 K/cumm Hgb 12.9 11.9 - 15.5 g/dL [facility] Hct 40.5 35.6 - 45.5 % [facility] Plt 289 150 - 400 K/cumm [facility] MPV 10.7 9.1 - 12.3 fL [facility] RBC 4.77 3.90 - 5.20 M/cumm [facility] MCV 84.9 81.3 - 96.4 fL [facility] MCH 27.0(L) 27.1 - 33.3 pg [facility] MCHC 31.9(L) 32.3 - 35.7 g/dL [facility] RDW CV 12.4 11.1 - 14.9 % [facility] RDW SD 37.9 35.7 - 48.1 fL [facility] NRBC abs 0.00 0.00 - 0.01 K/cumm [facility] Blood 03/22/2024 9:59 AM ROUGE PRESSER 03/22/2024 1:14 PM ROUGE PRESSER us Lore Montilla PRINT GRAPHIC DESIGNER LAB BLOOD ORDERABLES Final Re sult [facility] [address] Department [place] [address] * (ABNORMAL) Dario-Hoffmann virus (EBV) antibody panel Blood (03/22/2024 9:59 AM ROUGE PRESSER) [facility] EBV nuclear Ab Positive(A) Negative Comment: Indicates the presence of detectable IgG antibody to EBV Nuclear Antigen. Testing performed by: [facility], [address] [facility], [place]., [address] EBV VCA IgG Positive(A) Negative [facility] Comment: Indicates the presence of antibody; 90% of the adult population will have been infected with EBV sometime in the past. Testing performed by: [facility], [address] [place] [address] EBV VCA IgM Negative Negative [facility] Comment: No detectable IgM antibody to EBV-VCA. A negative result indicates no current infection with EBV. If clinical suspicion of acute EBV infection is present, testing should be repeated after one week. Testing performed by: [facility], [address] [place]., [address] EBV interp Past Infection [facility] Comment:Testing performed by : [facility], [address] [place] [address] Blood 03/22/2024 9:59 AM ROUGE PRESSER 03/22/2024 4:47 PM ROUGE PRESSER Lore Montilla PRINT GRAPHIC DESIGNER LAB MICROBIOLOGY - GENERAL OR DERABLES Final Result Performing Organization Address City/[facility] [address]/ZIP Co de Phone Number [facility] [address] [place] [place] [address] * Cyclic citrul peptide antibody, IgG (03/22/2024 9:59 AM ROUGE PRESSER) CCP Ab <0.5 <=2.9 units/mL Comment: Interpretive data Negative: <3 units/mL Positive: > or equal to 3 units/mL Current interpretive data was last revised on 2016. Testing performed by: [facility], [address] [place]., [address] Blood 03/22/2024 9:59 AM ROUGE PRESSER 03/22/2024 4:47 PM ROUGE PRESSER Lore Montilla PRINT GRAPHIC DESIGNER LAB BLOOD ORDERABLES Final Re sult [facility] [address] [place] [place] [address] * (ABNORMAL) Parvovirus B19 antibody, IgG and IgM Blood (03/22/2024 9:59 AM ROUGE PRESSER) Parvovirus IgG Positive(A) Negative [place] [facility] Parvovirus IgM Negative Negative [facility] Parvovirus B19 Interpretation See Footnote [facility] Comment: RESULT: Results suggest past infection. ADDITIONAL INFORMATION This test has been modified from the mobile application tester's instructions. Its performance characteristics were determined by [facility] in a manner consistent with CLIA requirements. This test has not been cleared or approved by the U.S. Food and Drug Administration. Test Performed by: [address] [address] [employer] Shrinker: Ronna Cole Ph.D.; CLIA# [id number] Blood 03/22/2024 9:59 AM ROUGE PRESSER 03/22/2024 1:11 PM ROUGE PRESSER Lore Montilla NP LAB MICROBIOLOGY - GENERAL OR DERABLES Final Result [facility] [address] Department [place] [address] [facility] * RPR Blood (03/22/2024 9:59 AM ROUGE PRESSER) Pathologist [facility] RPR Nonreactive Nonreactive Comment:Testing performed by : [facility], [address] [place]., [address] Blood 03/22/2024 9:59 AM ROUGE PRESSER 03/22/2024 4:41 PM ROUGE PRESSER Lore Montilla NP LAB MICROBIOLOGY - GENERAL OR DERABLES Final Result [facility] [address] Department of [employer] [place], [place] [id number] * (ABNORMAL) Urinalysis, microscopic only (03/22/2024 9:59 AM ROUGE PRESSER) WBC, ur 0-5 0 - 5 /HPF RBC, ur 0-2 0 - 2 /HPF [facility] Epithelial cells, squamous, ur 6-10(A) 0 - 5 /HPF [facility] Comment:Suggestive of contam ination. Consider recollection by clean catch. Bacteria, ur Trace(A) [facility] Mucous, ur Present(A) [facility] Culture Reflex Comment Reflex conditions for urine culture (WBC >10) not met. [facility] Urine, clean voided 03/22/2024 9:59 AM ROUGE PRESSER 03/22/2024 1:10 PM ROUGE PRESSER Lore Montilla PRINT GRAPHIC DESIGNER LAB URINE ORDERABLES Final Re sult Performing Organization Address [facility] [address]/[facility] Co de Phone Number [facility] [address] [facility] [employer] [place], [place] [id number] * Erythrocyte sedimentation rate (03/22/2024 9:59 AM ROUGE PRESSER) Pathologist [facility] Erythrocyte sedimentation rate 9 1 - 20 mm/hr Blood 03/22/2024 9:59 AM ROUGE PRESSER 03/22/2024 1:14 PM ROUGE PRESSER Lore Montilla PRINT GRAPHIC DESIGNER LAB BLOOD ORDERABLES Final Re sult Performing Organization Address [facility] [address] [facility] Co de Phone Number [facility] [address] Department [employer] [place], [place] [id number] * Rheumatoid factor (03/22/2024 9:59 AM ROUGE PRESSER) Pathologist [facility] Rheumatoid factor, quant 10 <=15 IUnits/mL Blood 03/22/2024 9:59 AM ROUGE PRESSER 03/22/2024 2:40 PM ROUGE PRESSER Lore Montilla NP LAB BLOOD ORDERABLES Final Re sult Performing Organization Address [facility] [address]/[facility] Co de Phone Number [facility] [address] [facility] [employer] [place], [place] [id number] * C3 complement (03/22/2024 9:59 AM ROUGE PRESSER) Pathologist [facility] Complement C3 131 90 - 180 mg/dL Blood 03/22/2024 9:59 AM ROUGE PRESSER 03/22/2024 2:40 PM ROUGE PRESSER Lore Montilla PRINT GRAPHIC DESIGNER LAB BLOOD ORDERABLES Final Re sult Performing Organization Address City/[facility] [address]/[facility] Co de Phone Number [facility] [address] [facility] [place] [place] [address] * CRP (acute phase) (03/22/2024 9:59 AM ROUGE PRESSER) [facility] CRP <3.0 <=10.0 mg/L Blood 03/22/2024 9:59 AM ROUGE PRESSER 03/22/2024 2:40 PM ROUGE PRESSER Lore Montilla PRINT GRAPHIC DESIGNER LAB BLOOD ORDERABLES Final Re sult Performing Organization Address [facility] [address]/[facility] Co de Phone Number [facility] [address] [facility] [place] [place] [address] * (ABNORMAL) Ferritin (03/22/2024 9:59 AM ROUGE PRESSER) [facility] Ferritin 10(L) 15 - 150 ng/mL Blood 03/22/2024 9:59 AM ROUGE PRESSER 03/22/2024 2:40 PM ROUGE PRESSER Lore Montilla PRINT GRAPHIC DESIGNER LAB BLOOD ORDERABLES Final Re sult Performing Organization Address [facility] [address]/[facility] Co de Phone Number [facility] [address] [facility] [place] [address] * Comprehensive metabolic panel (03/22/2024 9:59 AM ROUGE PRESSER) Pathologist [facility] Sodium 137 135 - 145 mmol/L Potassium, pl 3.8 3.3 - 4.9 mmol/L [facility] Chloride 101 97 - 110 mmol/L [facility] CO2 25 22 - 32 mmol/L [facility] Anion gap 11 2 - 15 mmol/L [facility] BUN 13 6 - 25 mg/dL [facility] Creatinine 0.88 0.60 - 1.10 mg/dL [facility] Glucose 73 70 - 199 mg/dL [facility] Comment: Interpretive Data Fasting glucose >/= 126 mg/dl is diagnostic for diabetes. Fasting is defined as no caloric intake for at least 8 hours. Fasting glucose between 100 mg/dl to 125 mg/dl is diagnostic of prediabetes. In a patient with classic symptoms of hyperglycemia or hyperglycemic crisis, a random glucose >/= 200 mg/dl is diagnostic for diabetes. In the absence of unequivocal hyperglycemia, results should be confirmed by repeat testing. The classification and Diagnosis of Diabetes Diabetes Care 202; 46: S19-S40. Current interpretive data was last revised 2022. Calcium 9.0 8.5 - 10.3 mg/dL [facility] Bilirubin, total 0.4 0.1 - 1.2 mg/dL [facility] Protein, pl 7.0 6.5 - 8.5 g/dL [facility] Albumin 4.6 3.5 - 5.0 g/dL [facility] Alk phos 91 40 - 130 Units/L [facility] ALT 14 7 - 45 Units/L [facility] AST 13 10 - 45 Units/L [facility] Blood 03/22/2024 9:59 AM ROUGE PRESSER 03/22/2024 2:40 PM ROUGE PRESSER us Lore Montilla PRINT GRAPHIC DESIGNER LAB BLOOD ORDERABLES Final Re sult [facility] [address] [place] [address] from Last [address] [place] [address] [facility] OPEN ACCESS Care Teams Turnaround Engineer Relationship Specialty Start Date End Date Marlen Boudreaux NP [address] [address] PCP - General Family Medicine 01/31/24
--- OUTSIDE RECORDS SUMMARY | 2024-04-09 09:45 | XMS_ITS | Referral Summary ---
Author Organization [facility] D Address [address] [place] [id number] Care Team Providers Care Set Up / Operator Name Role Phone Marlen Boudreaux KELLI Primary Care Provider [phone] Encounters Date Type Department Care Team Description 03/22/2024 Orders Only [facility] LAB INTERFACE [id number] Unknown, Notinfile 03/22/2024 2:18 PM POULTRY CULLER - 03/22/2024 11:59 PM POULTRY CULLER Hospital Encounter [address] [address] Discharge Disposition: Discharge to home or self care 03/22/2024 10:20 AM POULTRY CULLER - 03/22/2024 11:59 PM POULTRY CULLER Hospital Encounter [facility] [address] [place] [address] TANIA positive; Pain in other joint; Dry eye; Chronic night sweats Discharge Disposition: Discharge to home or self care 03/22/2024 9:30 AM POULTRY CULLER Office Visit [facility] Rheumatology at [address], [place] [address] Lore Montilla NP TANIA positive (Primary Dx); Other specified abnormal immunological findings in serum; Pain in other joint; Dry eye; Chronic night sweats 01/31/2024 Telephone [facility] Rheumatology at [address] [place] [address] April Murguia, Beauty Shop Manager Apt from Last 3 Months Allergies No known active allergies Medications buPROPion [...] 03/22/2024 Assessment & Plan (03/22/2024 9:28 AM POULTRY CULLER): A positive TANIA test means that you [...] also increase with age among healthy people. Social History Tobacco Use Types Packs/Day Years Used Date Smoking Tobacco: Never Assessed Comments Unknown Sex and Gender Information Value Date Recorded Sex Assigned at Not on file Legal Sex Female 11:02 AM CDT Gender Identity Not on file Sexual Orientation Not on file Last Filed Vital Signs Vital Sign Reading Time Taken Comments Blood Pressure 110/70 03/22/2024 9:06 AM POULTRY CULLER Pulse 74 03/22/2024 9:06 AM POULTRY CULLER Temperature 36.4 C (97.5 F) 03/22/2024 9:06 AM POULTRY CULLER Respiratory Rate 18 03/22/2024 9:06 AM POULTRY CULLER Oxygen Saturation 99% 03/22/2024 9:06 AM POULTRY CULLER Inhaled Oxygen Concentration - - Weight 60.8 kg (134 lb) 03/22/2024 9:06 AM POULTRY CULLER Height 160 cm (5' 3 ) 03/22/2024 9:06 AM POULTRY CULLER Body Mass Index 23.74 03/22/2024 9:06 AM POULTRY CULLER Plan of Treatment Not on file Procedures Procedure Name Priority Date/Time Associated Diagnosis Comments XR CHEST PA LATERAL 2 VIEWS Schedule Routine, Read Routine (OP Routine) 03/22/2024 10:42 AM POULTRY CULLER TANIA positive Pain in other joint Dry eye Chronic night sweats XR FOOT BILATERAL 3 OR MORE VIEWS OF EACH Schedule Routine, Read Routine (OP Routine) 03/22/2024 10:42 AM POULTRY CULLER TANIA positive Pain in other joint XR HAND BILATERAL 3 OR MORE VIEWS OF EACH Schedule Routine, Read Routine (OP Routine) 03/22/2024 10:42 AM POULTRY CULLER TANIA positive Pain in other joint XR SACROILIAC JOINTS 3 OR MORE VIEWS Schedule Routine, Read Routine (OP Routine) 03/22/2024 10:42 AM POULTRY CULLER TANIA positive Pain in other joint HLA DISEASE ASSOCIATION B 27 Routine 03/22/2024 9:59 AM POULTRY CULLER EGFR Routine 03/22/2024 9:59 AM POULTRY CULLER TANIA positive Pain in other joint Dry eye URINALYSIS, MICROSCOPIC ONLY Routine 03/22/2024 9:59 AM POULTRY CULLER TANIA positive Pain in other joint Dry eye DIFFERENTIAL AUTO Routine 03/22/2024 9:5 9 AM POULTRY CULLER TANIA positive Pain in other joint Dry eye IRON PROFILE W/ IBC Routine 03/22/2024 9 :59 AM POULTRY CULLER TANIA positive Pain in other joint Dry eye FERRITIN Routine 03/22/2024 9:59 AM POULTRY CULLER TANIA positive Pain in other joint Dry eye THYROID FUNCTION CASCADE Routine 03/22/2024 9:59 AM POULTRY CULLER TANIA positive Pain in other joint Dry eye ERYTHROCYTE SEDIMENTATION RATE Routine 03/22/2024 9:59 AM POULTRY CULLER TANIA positive Pain in other joint Dry eye RHEUMATOID FACTOR Routine 03/22/2024 9:5 9 AM POULTRY CULLER TANIA positive Pain in other joint Dry eye CHAPIN ANTIBODY EVALUATION WITH REFLEX Routine 03/22/2024 9:59 AM POULTRY CULLER TANIA positive Pain in other joint Dry eye ANTI-DOUBLE STRANDED DNA ANTIBODIES Routine 03/22/2024 9:59 AM POULTRY CULLER TANIA positive Pain in other joint Dry eye CYCLIC CITRUL PEPTIDE ANTIBODY, IGG Routine 03/22/2024 9:59 AM POULTRY CULLER TANIA positive Pain in other joint Dry eye CRP (ACUTE PHASE) Routine 03/22/2024 9:5 9 AM POULTRY CULLER TANIA positive Pain in other joint Dry eye COMPREHENSIVE METABOLIC PANEL Routine 03/22/2024 9:59 AM POULTRY CULLER TANIA positive Pain in other joint Dry eye CBC WITH AUTO DIFFERENTIAL Routine 03/22/2024 9:59 AM POULTRY CULLER TANIA positive Pain in other joint Dry eye C4 COMPLEMENT Routine 03/22/2024 9:59 AM POULTRY CULLER TANIA positive Pain in other joint Dry eye C3 COMPLEMENT Routine 03/22/2024 9:59 AM POULTRY CULLER TANIA positive Pain in other joint Dry eye TANIA QUALITATIVE WITH REFLEX TO TANIA QUANTITATIVE Routine 03/22/2024 9:59 AM POULTRY CULLER TANIA positive Pain in other joint Dry eye RPR Routine 03/22/2024 9:59 AM POULTRY CULLER TANIA positive Pain in other joint Dry eye DARIO-HOFFMANN VIRUS VCA ANTIBODY PANEL Routine 03/22/2024 9:59 AM POULTRY CULLER TANIA positive Pain in other joint Dry eye PARVOVIRUS B19 ANTIBODY, IGG AND IGM Routine 03/22/2024 9:59 AM POULTRY CULLER TANIA positive Pain in other joint Dry eye URINALYSIS AND REFLEX TO MICROSCOPIC AND CULTURE Routine 03/22/2024 9:59 AM POULTRY CULLER TANIA positive Pain in other joint Dry eye from Last 3 Months Results * XR Foot Bilateral 3 or More Views of Each (03/22/2024 10:42 AM POULTRY CULLER) Anatomical Region Laterality Modality Lower Extremities, Foot Computed Radiography 03/22/2024 11:0 0 AM POULTRY CULLER Impressions 03/22/2024 11:00 AM POULTRY CULLER 1. No characteristic finding of inflammatory arthritis are appreciated. 2. The feet are within expected limits bilaterally. Electronically signed by: Keny Larsen M.D. Narrative 03/22/2024 11:00 AM POULTRY CULLER Bilateral feet, 3 views each side HISTORY: [...] More Views of Each (03/22/2024 10:42 AM POULTRY CULLER) Anatomical Region Laterality Modality Upper Extremities, Hand Computed Radiography 03/22/2024 10:5 8 AM POULTRY CULLER Impressions 03/22/2024 10:58 AM POULTRY CULLER Left hand: 1. No characteristic findings of inflammatory arthritis are appreciated. 2. Otherwise negative left hand radiographic examination. Right hand: 1. No characteristic findings of inflammatory arthritis are appreciated. 2. Otherwise negative right hand radiographic examination. COMMENT: Please see above for additional findings. Electronically signed by: Keny Larsen M.D. Narrative 03/22/2024 10:58 AM POULTRY CULLER Bilateral hands, 3 views each side HISTORY: [...] signed by: Keny Larsen M.D. Lore Montilla DISPATCH MANAGER IMG XR PROCEDURES Final Resul t * XR Sacroiliac Joints 3 or More Views (03/22/2024 10:42 AM POULTRY CULLER) Anatomical Region Laterality Modality Pelvis, Body N/A Computed Radiogr aphy 03/22/2024 10:5 6 AM POULTRY CULLER Impressions 03/22/2024 10:56 AM POULTRY CULLER 1. The sacroiliac joints are within expected limits. COMMENT: Please see above for additional findings. Electronically signed by: Keny Larsen M.D. Narrative 03/22/2024 10:56 AM POULTRY CULLER Sacroiliac joints, 3 views HISTORY: Joint pain, [...] signed by: Keny Larsen M.D. Lore Montilla DISPATCH MANAGER IMG XR PROCEDURES Final Resul t * XR Chest Pa Lateral 2 Views (03/22/2024 10:42 AM POULTRY CULLER) Anatomical Region Laterality Modality Body, Chest N/A Computed Radiogr aphy 03/22/2024 11:0 0 AM POULTRY CULLER Impressions 03/22/2024 11:00 AM POULTRY CULLER 1. Negative chest radiograph. COMMENT: Please see above for additional findings. Electronically signed by: Keny Larsen M.D. Narrative 03/22/2024 11:00 AM POULTRY CULLER Chest Radiograph, 2 views HISTORY: chronic fatigue, [...] by: Keny Larsen M.D. us Lore Montilla DISPATCH MANAGER IMG XR PROCEDURES Final Resul t * (ABNORMAL) TANIA ab ql w/rflx to TANIA qn (03/22/2024 9:59 AM POULTRY CULLER) TANIA Positive 1:2560 Comment: Interpretive Data Normal [...] last revised on 2019. Testing performed by: [facility], [address] [facility], [place]., [address] TANIA, quant 1:2560 titer [facility] Comment:Testing performed by : [facility], [address] [facility], [place]., [address] TANIA, interp Speckled(A) [facility] Comment:Testing performed by : [facility], [address] [place]., [address] Blood 03/22/2024 9:59 AM POULTRY CULLER 03/22/2024 4:47 PM POULTRY CULLER us Lore Montilla DISPATCH MANAGER LAB BLOOD ORDERABLES Final Re sult [facility] [address] [place] [address] * HLA disease association B 27 (03/22/2024 9:59 AM POULTRY CULLER) HLA-B27 interp HLA-B*27 is Negative. HISTOTRAC 03/22/2024 9:59 AM POULTRY CULLER 03/26/2024 10:09 AM POULTRY CULLER Narrative HISTOTRAC - 03/26/2024 10:09 AM POULTRY CULLER HLA-B typing is performed using the reverse sequence specific oligonucleotide (r-SSO) method, which is based on an FDA approved IVD kit and validated by the [facility] HLA laboratory. Interpretive comments: HLA-B*27 positivity confers [...] J Med 2016;374:2563-74) Testing performed at the [facility] Laboratory, [address], 5th floor, [place], [address]. [facility] # [id number]. Trudi Barraza, Ph.D., Donor Services Specialist, HLA Laboratory Rhett Guerra M.D., Ph.D., Adult Services Librarian, HLA Laboratory Dori Hurtado, Ph.D., CLIA Adult Services Librarian, [facility] Clinical Laboratories Current methodology and interpretive comments were last revised on 09/19/2016 us Notinfile Unknown LAB BLOOD ORDERABLES Final Res ult Performing Organization Address City/[facility]/ZIP Co de Phone Number HISTOTRAC * Anti-double stranded DNA abs (03/22/2024 9:59 AM POULTRY CULLER) Pathologist [facility] dsDNA Ab <1.0 <=4.0 IUnits/mL Comment: Interpretive Data Negative: < or = 4 IUnits/mL Indeterminate: 5 - 9 IUnits/mL Positive: > or = 10 IUnits/mL Current interpretive data was last revised on 2016. Testing performed by: [facility], [address] [place] [address]., [id number] Blood 03/22/2024 9:59 AM POULTRY CULLER 03/22/2024 4:47 PM POULTRY CULLER us Lore Montilla DISPATCH MANAGER LAB BLOOD ORDERABLES Final Re sult Performing Organization Address City/[facility]/ZIP Co de Phone Number [facility] [address] [place] [address] * eGFR (03/22/2024 9:59 AM POULTRY CULLER) eGFR >90 >=60 mL/min/1. 73 m2 Comment: [...] last reviewed 2020. Blood 03/22/2024 9:59 AM POULTRY CULLER 03/22/2024 2:40 PM POULTRY CULLER us Lore Montilla DISPATCH MANAGER LAB BLOOD ORDERABLES Final Re sult [facility] [address] [place] [address] * Differential, auto (03/22/2024 9:59 AM POULTRY CULLER) Neutrophil abs 2.5 1.5 - 6.5 K/cumm Imm gran abs 0.0 0.0 - 0.1 K/cumm [facility] Lymphocyte abs 1.4 0.8 - 3.3 K/cumm [facility] Monocyte abs 0.4 0.2 - 0.8 K/cumm [facility] Eosinophil abs 0.1 0.0 - 0.5 K/cumm [facility] Basophil abs 0.0 0.0 - 0.1 K/cumm [facility] Neutrophil pct 56.9 % [facility] Comment: Interpretive Data Percent cell count reference ranges are not reported, since discordance with absolute values may lead to misinterpretation of CBC data. Current Interpretive Data was last revised on 2017. Imm gran pct 0.2 % [facility] Comment: Interpretive Data Percent cell count reference ranges are not reported, since discordance with absolute values may lead to misinterpretation of CBC data. Current Interpretive Data was last revised on 2017. Lymphocyte pct 32.9 % [facility] Comment: Interpretive Data Percent cell count reference ranges are not reported, since discordance with absolute values may lead to misinterpretation of CBC data. Current Interpretive Data was last revised on 2017. Monocyte pct 8.0 % [facility] Comment: Interpretive Data Percent cell count reference ranges are not reported, since discordance with absolute values may lead to misinterpretation of CBC data. Current Interpretive Data was last revised on 2017. Eosinophil pct 1.1 % [facility] Comment: Interpretive Data Percent cell count reference ranges are not reported, since discordance with absolute values may lead to misinterpretation of CBC data. Current Interpretive Data was last revised on 2017. Basophil pct 0.9 % [facility] Comment: Interpretive Data Percent cell count reference ranges are not reported, since discordance with absolute values may lead to misinterpretation of CBC data. Current Interpretive Data was last revised on 2017. Blood 03/22/2024 9:59 AM POULTRY CULLER 03/22/2024 1:14 PM POULTRY CULLER Lore Montilla DISPATCH MANAGER LAB BLOOD ORDERABLES Final Re sult Performing Organization Address [facility] Co de Phone Number [facility] [address] [place] [address] * C4 complement (03/22/2024 9:59 AM POULTRY CULLER) Complement C4 19 10 - 40 mg/dL Blood 03/22/2024 9:59 AM POULTRY CULLER 03/22/2024 2:40 PM POULTRY CULLER Lore Montilla DISPATCH MANAGER LAB BLOOD ORDERABLES Final Re sult Performing Organization Address [facility] Co de Phone Number [facility] [address] [place] [address] * CHAPIN ab eval w/reflex (03/22/2024 9:59 AM POULTRY CULLER) Pathologist [facility] CHAPIN ab Negative Negative Comment: Interpretive Data Positive Screens will be reflexed to specific testing for Antibodies against the following antigens: Joanne-1 Ab, OYSTER TONGER Ab, Scl-70 Ab, Mills Ab, SS-A/Ro Ab, and SS- B/La Ab. Further testing for dsDNA, Centromere, or Ribosomal P antibodies is suggested in patient with a positive screen and negative specific antibodies. Current interpretive data was last revised on 2022. Testing performed by: [facility], [address] [place]., [address] Blood 03/22/2024 9:59 AM POULTRY CULLER 03/22/2024 4:47 PM POULTRY CULLER Lore Montilla DISPATCH MANAGER LAB BLOOD ORDERABLES Final Re sult Performing Organization Address [facility]/ZIP Co de Phone Number [facility] [address] [place] [address] * Thyroid Function [place] (03/22/2024 9:59 AM POULTRY CULLER) TSH 1.29 0.30 - 4.20 mcIUnit/mL Blood 03/22/2024 9:59 AM POULTRY CULLER 03/22/2024 2:40 PM POULTRY CULLER Lore Montilla DISPATCH MANAGER LAB BLOOD ORDERABLES Final Re sult Performing Organization Address [facility] Co de Phone Number [facility] [address] [place] [address] * (ABNORMAL) Iron profile w/ IBC (03/22/2024 9:59 AM POULTRY CULLER) Iron 48 35 - 145 mcg/dL TIBC 329 250 - 400 mcg/dL [facility] Transferrin saturation 15(L) 20 - 50 % [facility] Blood 03/22/2024 9:59 AM POULTRY CULLER 03/22/2024 2:40 PM POULTRY CULLER Lore Montilla DISPATCH MANAGER LAB BLOOD ORDERABLES Final Re sult Performing Organization Address [facility]/ZIP Co de Phone Number [facility] [address] [place] [address] * (ABNORMAL) Urinalysis reflex to microscopic and culture Urine, clean voided (03/22/2024 9:59 AM POULTRY CULLER) Color, ur Yellow Yellow Clarity, ur Clear Clear [facility] Specific gravity, ur 1.023 1.003 - 1.030 [facility] pH, urine 6.5 [facility] Comment: Interpretive Data U rine pH is affected by diet, medications, systemic acid-base disturbances, and renal tubular function. pH may affect urinary stone formation. For example, urine pH below 6.0 may help reduce the tendency for calcium phosphate stones and pH greater than 6.0 may reduce the tendency for uric acid stone formation. Source: [facility] Current Interpretive Data was last revised on 2017 Protein, ur ql Negative Negative [facility] Glucose, ur ql Negative Negative [facility] Ketones, ur Negative Negative [facility] Bilirubin, ur Negative Negative [facility] Blood, ur Negative Negative [facility] Urobilinogen, ur <2.0 <2.0 mg/dL [facility] Nitrite, ur Negative Negative [facility] Leukocyte esterase, ur 2+(A) Negative [facility] UA reflex comment Reflex to microscopic UA will be performed. [facility] Urine, clean voided 03/22/2024 9:59 AM POULTRY CULLER 03/22/2024 10:18 AM POULTRY CULLER us Lore Montilla NP LAB MICROBIOLOGY - GENERAL OR DERABLES Final Result [facility] [address] [place] [address] * (ABNORMAL) CBC with auto differential (03/22/2024 9:59 AM POULTRY CULLER) WBC 4.4 3.8 - 9.9 K/cumm Hgb 12.9 11.9 - 15.5 g/dL [facility] Hct 40.5 35.6 - 45.5 % [facility] Plt 289 150 - 400 K/cumm [facility] MPV 10.7 9.1 - 12.3 fL [facility] RBC 4.77 3.90 - 5.20 M/cumm [facility] MCV 84.9 81.3 - 96.4 fL [facility] MCH 27.0(L) 27.1 - 33.3 pg [facility] MCHC 31.9(L) 32.3 - 35.7 g/dL [facility] RDW CV 12.4 11.1 - 14.9 % [facility] RDW SD 37.9 35.7 - 48.1 fL [facility] NRBC abs 0.00 0.00 - 0.01 K/cumm [facility] Blood 03/22/2024 9:5 9 AM POULTRY CULLER 03/22/2024 1:14 PM POULTRY CULLER us Lore Montilla NP LAB BLOOD ORDERABLES Final Re sult [facility] [address] [place] [address] * (ABNORMAL) Dario-Hoffmann virus (EBV) antibody panel Blood (03/22/2024 9:59 AM POULTRY CULLER) EBV nuclear Ab Positive(A) Negative Comment: Indicates the presence of detectable IgG antibody to EBV Nuclear Antigen. Testing performed by: [facility], [address] [place] [address]., [id number] EBV VCA IgG Positive(A) Negative [facility] Comment: Indicates the presence of antibody; 90% of the adult population will have been infected with EBV sometime in the past. Testing performed by: [facility], [address] [place] [address]., [id number] EBV VCA IgM Negative Negative [facility] Comment: No detectable IgM antibody to EBV-VCA. A negative result indicates no current infection with EBV. If clinical suspicion of acute EBV infection is present, testing should be repeated after one week. Testing performed by: [facility], [address] [place] [address]., [id number] EBV interp Past Infection [facility] Comment:Testing performed by : [facility], [address] [place]., [address] Blood 03/22/2024 9:59 AM POULTRY CULLER 03/22/2024 4:47 PM POULTRY CULLER Lore Montilla NP LAB MICROBIOLOGY - GENERAL OR DERABLES Final Result Performing Organization Address [facility] Co de Phone Number [facility] [address] Department [employer] [place], [place] [id number] * Cyclic citrul peptide antibody, IgG (03/22/2024 9:59 AM POULTRY CULLER) Pathologist [facility] CCP Ab <0.5 <=2.9 units/mL Comment: Interpretive data Negative: <3 units/mL Positive: > or equal to 3 units/mL Current interpretive data was last revised on 2016. Testing performed by: [facility], [address] [place] [address]., [id number] Blood 03/22/2024 9:59 AM POULTRY CULLER 03/22/2024 4:47 PM POULTRY CULLER Lore Montilla NP LAB BLOOD ORDERABLES Final Re sult Performing Organization Address [facility] Co de Phone Number [facility] [address] [place] [address] * (ABNORMAL) Parvovirus B19 antibody, IgG and IgM Blood (03/22/2024 9:59 AM POULTRY CULLER) [facility] Parvovirus IgG Positive(A) Negative [place] [facility] Parvovirus IgM Negative Negative [facility] Parvovirus B19 Interpretation See Footnote [facility] Comment: RESULT: Results suggest past infection. ADDITIONAL INFORMATION This test has been modified from the film recordist's instructions. Its performance characteristics were determined by [facility] in a manner consistent with CLIA requirements. This test has not been cleared or approved by the U.S. Food and Drug Administration. Test Performed by: [facility] [address] [place] [address] Impress Associate: Ronna Cole Ph.D.; IA# [id number] Blood 03/22/2024 9:59 AM POULTRY CULLER 03/22/2024 1:11 PM POULTRY CULLER us Lore Montilla DISPATCH MANAGER LAB MICROBIOLOGY - GENERAL OR DERABLES Final Result Performing Organization Address [facility] Co de Phone Number [facility] [address] [place] [address] [place] [facility] * RPR Blood (03/22/2024 9:59 AM POULTRY CULLER) Pathologist [facility] Nonreactive Nonreactive Comment:Testing performed by : [facility], [address] [place] [address]., [id number] Blood 03/22/2024 9:59 AM POULTRY CULLER 03/22/2024 4:41 PM POULTRY CULLER Lore Montilla DISPATCH MANAGER LAB MICROBIOLOGY - GENERAL OR DERABLES Final Result Performing Organization Address [facility] de Phone Number [facility] [address] [place] [employer] [place] [address] * (ABNORMAL) Urinalysis, microscopic only (03/22/2024 9:59 AM POULTRY CULLER) WBC, ur 0-5 0 - 5 /HPF RBC, ur 0-2 0 - 2 /HPF [facility] Epithelial cells, squamous, ur 6-10(A) 0 - 5 /HPF [facility] Comment:Suggestive of contam ination. Consider recollection by clean catch. Bacteria, ur Trace(A) [facility] Mucous, ur Present(A) [facility] Culture Reflex Comment Reflex conditions for urine culture (WBC >10) not met. [facility] Urine, clean voided 03/22/2024 9:59 AM POULTRY CULLER 03/22/2024 1:10 PM POULTRY CULLER Lroe Montilla DISPATCH MANAGER LAB URINE ORDERABLES Final Re sult Performing Organization Address [facility] Co de Phone Number [facility] [address] [facility] [employer] [place], [place] [id number] * Erythrocyte sedimentation rate (03/22/2024 9:59 AM POULTRY CULLER) Erythrocyte sedimentation rate 9 1 - 20 mm/hr Blood 03/22/2024 9:59 AM POULTRY CULLER 03/22/2024 1:14 PM POULTRY CULLER Lore Montilla DISPATCH MANAGER LAB BLOOD ORDERABLES Final Re sult Performing Organization Address [facility] Co de Phone Number [facility] [address] [facility] [place] [address] * Rheumatoid factor (03/22/2024 9:59 AM POULTRY CULLER) Rheumatoid factor, quant 10 <=15 IUnits/mL Blood 03/22/2024 9:59 AM POULTRY CULLER 03/22/2024 2:40 PM POULTRY CULLER Lore Montilla DISPATCH MANAGER LAB BLOOD ORDERABLES Final Re sult Performing Organization Address [facility] Co de Phone Number [facility] [address] [place] [address] * C3 complement (03/22/2024 9:59 AM POULTRY CULLER) Complement C3 131 90 - 180 mg/dL Blood 03/22/2024 9:59 AM POULTRY CULLER 03/22/2024 2:40 PM POULTRY CULLER Lore Montilla DISPATCH MANAGER LAB BLOOD ORDERABLES Final Re sult Performing Organization Address [facility] Co de Phone Number [facility] [address] Department [employer] [place], [place] [phone] * CRP (acute phase) (03/22/2024 9:59 AM POULTRY CULLER) [facility] CRP <3.0 <=10.0 mg/L Blood 03/22/2024 9:59 AM POULTRY CULLER 03/22/2024 2:40 PM POULTRY CULLER Lore Montilla DISPATCH MANAGER LAB BLOOD ORDERABLES Final Re sult Performing Organization Address [facility] Co de Phone Number [facility] [address] [place] [address] * (ABNORMAL) Ferritin (03/22/2024 9:59 AM POULTRY CULLER) [facility] Ferritin 10(L) 15 - 150 ng/mL Blood 03/22/2024 9:59 AM POULTRY CULLER 03/22/2024 2:40 PM POULTRY CULLER Lore Montilla DISPATCH MANAGER LAB BLOOD ORDERABLES Final Re sult Performing Organization Address [facility] de Phone Number [facility] [address] [facility] [place] [place] [address] * Comprehensive metabolic panel (03/22/2024 9:59 AM POULTRY CULLER) [facility] Sodium 137 135 - 145 mmol/L Potassium, pl 3.8 3.3 - 4.9 mmol/L [facility] Chloride 101 97 - 110 mmol/L [facility] CO2 25 22 - 32 mmol/L [facility] Anion gap 11 2 - 15 mmol/L [facility] BUN 13 6 - 25 mg/dL [facility] Creatinine 0.88 0.60 - 1.10 mg/dL [facility] Glucose 73 70 - 199 mg/dL [facility] Comment: Interpretive Data Fasting glucose >/= 126 [...] classification and Diagnosis of Diabetes Diabetes Care 2021; 46: S19-S40. Current interpretive data was last revised 2022. Calcium 9.0 8.5 - 10.3 mg/dL [facility] Bilirubin, total 0.4 0.1 - 1.2 mg/dL [facility] Protein, pl 7.0 6.5 - 8.5 g/dL [facility] Albumin 4.6 3.5 - 5.0 g/dL [facility] Alk phos 91 40 - 130 Units/L [facility] ALT 14 7 - 45 Units/L [facility] AST 13 10 - 45 Units/L [facility] Blood 03/22/2024 9:59 AM POULTRY CULLER 03/22/2024 2:40 PM POULTRY CULLER us Lore Montilla DISPATCH MANAGER LAB BLOOD ORDERABLES Final Re sult [facility] [address] [place] [address] from Last 3 Months Insurance [employer]ESS Care Teams Set Up / Operator Relationship Specialty Start Date End Date Marlen Boudreaux NP [address] [address] PCP - General Family Medicine 01/31/24
== END ==
PROVIDERS: PCP Nurse Practitioner Family; Visit Provider Nurse Practitioner Family
DX: M53.3 Sacrococcygeal disorders, not elsewhere classified (principal)
CPT/HCPCS: 72220

== ENCOUNTER 2024-04-18 10:18 | Outpatient (CLI) | payer OTHER, SELFPAY ==
--- NOTE | ~2024-04-18 | MR_ITS ---
EXAMINATION: MR brain IAC wo/w con DATE: 04/18/2024 11:30 INDICATION: Dizziness and giddiness. TECHNIQUE: Magnetic resonance imaging (MRI) of the brain, brainstem, and internal auditory canals was performed without and with 12 mL MultiHance intravenous contrast. COMPARISON: None. FINDINGS: There is no intracranial hemorrhage, acute infarction, or abnormal intracranial mass lesion . The ventricles are normal in size. The orbits are normal. There is mild mucosal thickening in the e thmoid sinuses. The internal auditory canals, inner ears, tympanic cavities, and mastoid air cells ar e normal. IMPRESSION: 1. Normal brain. Reviewed, dictated and finalized at location A. ICAL LABORATORY TESTER IMPRESSION: 1. Normal brain.
--- OUTSIDE RECORDS SUMMARY | 2024-04-18 10:41 | XMS_ITS | Clinical Summary ---
Author Organization [facility] D Address [address] [place] [phone] Care Team Providers Care Print Press Operator Name Role Phone Marlen Boudreaux KELLI Primary Care Provider Allergies No known active allergies Medications escitalopram (LEXAPRO) 20 mg tablet Take 1 tablet (20 mg total) by mouth daily 3 Active promethazine (PHENERGAN) 25 mg tablet TAKE 1 TABLET BY MOUTH THREE TIMES DAILY NEEDED FOR NAUSEA OR VOMITING 4 Active buPROPion XL (WELLBUTRIN XL) 300 mg 24 hr tablet Take 1 tablet (300 mg total) by mouth every morning 5 Active vit [id number]-[id number]-d dawkins 27mg iron- 800 mcg-250 mg capsule Take by mouth Active buPROPion XL (WELLBUTRIN XL) 150 mg 24 hr tablet Take 1 tablet (150 mg total) by mouth daily 04/12/19 25 Discontinu ed(Alterna te therapy) Active Problems Problem Noted Date Diagnosed Date TANIA positive 03/22/2024 Assessment & Plan (03/22/2024 9:28 AM STOPPER MAKER): A positive TANIA test means that you [...] Encounters Date Type Department Care Team Description 04/12/2024 9:30 AM STOPPER MAKER Office Visit [facility] Rheumatology at [address] [phone] Lore Montilla NP TANIA positive (Primary Dx); Other specified abnormal immunological findings in serum; Chronic night sweats; Swelling of lymph nodes 03/22/2024 2:18 PM STOPPER MAKER - 03/22/2024 11:59 PM STOPPER MAKER Hospital Encounter [address] [phone] Discharge Disposition: Discharge to home or self care 03/22/2024 10:20 AM STOPPER MAKER - 03/22/2024 11:59 PM STOPPER MAKER Hospital Encounter [facility] - [facility] [address] [place] [phone] TANIA positive; Pain in other joint; Dry eye; Chronic night sweats Discharge Disposition: Discharge to home or self care 03/22/2024 9:30 AM STOPPER MAKER Office Visit [facility] Rheumatology at [address] [phone] Lore Montilla NP TANIA positive (Primary Dx); Other specified abnormal immunological findings in serum; Pain in other joint; Dry eye; Chronic night sweats 03/22/2024 Orders Only [facility] INTERFACE [id number] Unknown, Notinfile 01/31/2024 Telephone [facility] Rheumatology at [address] [phone] April Murguia DO Senior Marketing Analyst Apt from Last 3 Months Family History [...] Sign Reading Time Taken Comments Blood Pressure 112/72 04/12/2024 9:17 AM STOPPER MAKER Pulse 72 04/12/2024 9:17 AM STOPPER MAKER Temperature 36.7 C (98 F) 04/12/2024 9:17 AM STOPPER MAKER Respiratory Rate 20 04/12/2024 9:17 AM STOPPER MAKER Oxygen Saturation 98% 04/12/2024 9:17 AM STOPPER MAKER Inhaled Oxygen Concentration - - Weight 60.8 kg (134 lb) 04/12/2024 9:17 AM STOPPER MAKER Height 160 cm (5' 3 ) 04/12/2024 9:17 AM STOPPER MAKER Body Mass Index 23.74 04/12/2024 9:17 AM STOPPER MAKER Plan of Treatment Health Maintenance Due Date [...] Read Routine (OP Routine) 03/22/2024 10:42 AM STOPPER MAKER TANIA positive Pain in other joint Dry eye Chronic night sweats XR FOOT BILATERAL 3 OR MORE VIEWS OF EACH Schedule Routine, Read Routine (OP Routine) 03/22/2024 10:42 AM STOPPER MAKER TANIA positive Pain in other joint XR HAND BILATERAL 3 OR MORE VIEWS OF EACH Schedule Routine, Read Routine (OP Routine) 03/22/2024 10:42 AM STOPPER MAKER TANIA positive Pain in other joint XR SACROILIAC JOINTS 3 OR MORE VIEWS Schedule Routine, Read Routine (OP Routine) 03/22/2024 10:42 AM STOPPER MAKER TANIA positive Pain in other joint HLA DISEASE ASSOCIATION B 27 Routine 03/22/2024 9:59 AM STOPPER MAKER EGFR Routine 03/22/2024 9:59 AM STOPPER MAKER TANIA positive Pain in other joint Dry eye URINALYSIS, MICROSCOPIC ONLY Routine 03/22/2024 9:59 AM STOPPER MAKER TANIA positive Pain in other joint Dry eye DIFFERENTIAL AUTO Routine 03/22/2024 9:5 9 AM STOPPER MAKER TANIA positive Pain in other joint Dry eye IRON PROFILE W/ IBC Routine 03/22/2024 9 :59 AM STOPPER MAKER TANIA positive Pain in other joint Dry eye FERRITIN Routine 03/22/2024 9:59 AM STOPPER MAKER TANIA positive Pain in other joint Dry eye THYROID FUNCTION CASCADE Routine 03/22/2024 9:59 AM STOPPER MAKER TANIA positive Pain in other joint Dry eye ERYTHROCYTE SEDIMENTATION RATE Routine 03/22/2024 9:59 AM STOPPER MAKER TANIA positive Pain in other joint Dry eye RHEUMATOID FACTOR Routine 03/22/2024 9:5 9 AM STOPPER MAKER TANIA positive Pain in other joint Dry eye CHAPIN ANTIBODY EVALUATION WITH REFLEX Routine 03/22/2024 9:59 AM STOPPER MAKER TANIA positive Pain in other joint Dry eye ANTI-DOUBLE STRANDED DNA ANTIBODIES Routine 03/22/2024 9:59 AM STOPPER MAKER TANIA positive Pain in other joint Dry eye CYCLIC CITRUL PEPTIDE ANTIBODY, IGG Routine 03/22/2024 9:59 AM STOPPER MAKER TANIA positive Pain in other joint Dry eye CRP (ACUTE PHASE) Routine 03/22/2024 9:5 9 AM STOPPER MAKER TANIA positive Pain in other joint Dry eye COMPREHENSIVE METABOLIC PANEL Routine 03/22/2024 9:59 AM STOPPER MAKER TANIA positive Pain in other joint Dry eye CBC WITH AUTO DIFFERENTIAL Routine 03/22/2024 9:59 AM STOPPER MAKER TANIA positive Pain in other joint Dry eye C4 COMPLEMENT Routine 03/22/2024 9:59 AM STOPPER MAKER TANIA positive Pain in other joint Dry eye C3 COMPLEMENT Routine 03/22/2024 9:59 AM STOPPER MAKER TANIA positive Pain in other joint Dry eye TANIA QUALITATIVE WITH REFLEX TO TANIA QUANTITATIVE Routine 03/22/2024 9:59 AM STOPPER MAKER TANIA positive Pain in other joint Dry eye RPR Routine 03/22/2024 9:59 AM STOPPER MAKER TANIA positive Pain in other joint Dry eye DARIO-HOFFMANN VIRUS VCA ANTIBODY PANEL Routine 03/22/2024 9:59 AM STOPPER MAKER TANIA positive Pain in other joint Dry eye PARVOVIRUS B19 ANTIBODY, IGG AND IGM Routine 03/22/2024 9:59 AM STOPPER MAKER TANIA positive Pain in other joint Dry eye URINALYSIS AND REFLEX TO MICROSCOPIC AND CULTURE Routine 03/22/2024 9:59 AM STOPPER MAKER TANIA positive Pain in other joint Dry eye from Last 3 Months Results * XR Foot Bilateral 3 or More Views of Each (03/22/2024 10:42 AM STOPPER MAKER) Anatomical Region Laterality Modality Lower Extremities, Foot Computed Radiography 03/22/2024 11:0 0 AM STOPPER MAKER Impressions 03/22/2024 11:00 AM STOPPER MAKER 1. No characteristic finding of inflammatory arthritis are appreciated. 2. The feet are within expected limits bilaterally. Electronically signed by: Keny Larsen M.D. Narrative 03/22/2024 11:00 AM STOPPER MAKER Bilateral feet, 3 views each side HISTORY: [...] bilaterally. Electronically signed by: Keny Larsen M.D. us Lore Montilla [employer] IMG XR PROCEDURES Final Resul t * XR Hand Bilateral 3 or More Views of Each (03/22/2024 10:42 AM STOPPER MAKER) Anatomical Region Laterality Modality Upper Extremities, Hand Computed Radiography 03/22/2024 10:5 8 AM STOPPER MAKER Impressions 03/22/2024 10:58 AM STOPPER MAKER Left hand: 1. No characteristic findings of inflammatory arthritis are appreciated. 2. Otherwise negative left hand radiographic examination. Right hand: 1. No characteristic findings of inflammatory arthritis are appreciated. 2. Otherwise negative right hand radiographic examination. COMMENT: Please see above for additional findings. Electronically signed by: Keny Larsen M.D. Narrative 03/22/2024 10:58 AM STOPPER MAKER Bilateral hands, 3 views each side HISTORY: [...] 3 or More Views (03/22/2024 10:42 AM STOPPER MAKER) Anatomical Region Laterality Modality Pelvis, Body N/A Computed Radiogr aphy 03/22/2024 10:5 6 AM STOPPER MAKER Impressions 03/22/2024 10:56 AM STOPPER MAKER 1. The sacroiliac joints are within expected limits. COMMENT: Please see above for additional findings. Electronically signed by: Keny Larsen M.D. Narrative 03/22/2024 10:56 AM STOPPER MAKER Sacroiliac joints, 3 views HISTORY: Joint pain, [...] signed by: Keny Larsen M.D. Lore Montilla [employer] IMG XR PROCEDURES Final Resul t * XR Chest Pa Lateral 2 Views (03/22/2024 10:42 AM STOPPER MAKER) Anatomical Region Laterality Modality Body, Chest N/A Computed Radiogr aphy 03/22/2024 11:0 0 AM STOPPER MAKER Impressions 03/22/2024 11:00 AM STOPPER MAKER 1. Negative chest radiograph. COMMENT: Please see above for additional findings. Electronically signed by: Keny Larsen M.D. Narrative 03/22/2024 11:00 AM STOPPER MAKER Chest Radiograph, 2 views HISTORY: chronic fatigue, [...] by: Keny Larsen M.D. us Lore Montilla NP IMG XR PROCEDURES Final Resul t * (ABNORMAL) TANIA ab ql w/rflx to TANIA qn (03/22/2024 9:59 AM STOPPER MAKER) TANIA Positive 1:2560 Comment: Interpretive Data Normal [...] last revised on 2019. Testing performed by: [facility], [address] [place] [address]., [id number] TANIA, quant 1:2560 titer [facility] Comment:Testing performed by : [facility], [address] [place]., [address] TANIA, interp Speckled(A) [facility] Comment:Testing performed by : [facility], [address] [place]., [address] Blood 03/22/2024 9:59 AM STOPPER MAKER 03/22/2024 4:47 PM STOPPER MAKER Lore Montilla NP LAB BLOOD ORDERABLES Final Re sult [facility] [address] Department [place] [address] * HLA disease association B 27 (03/22/2024 9:59 AM STOPPER MAKER) HLA-B27 interp HLA-B*27 is Negative. HISTOTRAC 03/22/2024 9:59 AM STOPPER MAKER 03/26/2024 10:09 AM STOPPER MAKER Narrative HISTOTRAC - 03/26/2024 10:09 AM STOPPER MAKER HLA-B typing is performed using the reverse sequence specific oligonucleotide (r-SSO) method, which is based on an FDA approved IVD kit and validated by the [facility] HLA laboratory. Interpretive comments: HLA-B*27 positivity [...] J Med 2016;374:2563-74) Testing performed at the [facility], [address] [place] [address], 5th floor, [place], [address]. IA # [id number]. Trudi Barraza, Ph.D., Chemist Organic, [facility] Laboratory Rhett Guerra M.D., Ph.D., Make Up Girl, [facility] Dori Hurtado, Ph.D., CLIA Make Up Girl, [facility] Clinical Laboratories Current methodology and interpretive comments were last revised on 09/19/2016 us Notinfile Unknown LAB BLOOD ORDERABLES Final Res ult HISTOTRAC * Anti-double stranded DNA abs (03/22/2024 9:59 AM STOPPER MAKER) dsDNA Ab <1.0 <=4.0 IUnits/mL Comment: Interpretive Data Negative: < or = 4 IUnits/mL Indeterminate: 5 - 9 IUnits/mL Positive: > or = 10 IUnits/mL Current interpretive data was last revised on 2016. Testing performed by: [facility], [address] [place]., [address] Blood 03/22/2024 9:59 AM STOPPER MAKER 03/22/2024 4:47 PM STOPPER MAKER Lore Montilla [employer] LAB BLOOD ORDERABLES Final Re sult [facility] [address] [place], [place] [id number] * eGFR (03/22/2024 9:59 AM STOPPER MAKER) eGFR >90 >=60 mL/min/1. 73 m2 Comment: [...] last reviewed 2020. Blood 03/22/2024 9:59 AM STOPPER MAKER 03/22/2024 2:40 PM STOPPER MAKER us Lore Montilla [employer] LAB BLOOD ORDERABLES Final Re sult [facility] [address] Department [employer] [place] [address] * Differential, auto (03/22/2024 9:59 AM STOPPER MAKER) Neutrophil abs 2.5 1.5 - 6.5 K/cumm Imm gran abs 0.0 0.0 - 0.1 K/cumm [facility] Lymphocyte abs 1.4 0.8 - 3.3 K/cumm [facility] Monocyte abs 0.4 0.2 - 0.8 K/cumm [facility] Eosinophil abs 0.1 0.0 - 0.5 K/cumm [facility] Basophil abs 0.0 0.0 - 0.1 K/cumm [facility] Neutrophil pct 56.9 % [facility] Comment: Interpretive Data Percent cell count reference ranges are not reported, since discordance with absolute values may lead to misinterpretation of CBC data. Current Interpretive Data was last revised on 2017. Imm gran pct 0.2 % [facility] Comment: Interpretive Data Percent cell count reference ranges are not reported, since discordance with absolute values may lead to misinterpretation of CBC data. Current Interpretive Data was last revised on 2017. Lymphocyte pct 32.9 % [facility] Comment: Interpretive Data Percent cell count reference ranges are not reported, since discordance with absolute values may lead to misinterpretation of CBC data. Current Interpretive Data was last revised on 2017. Monocyte pct 8.0 % [facility] Comment: Interpretive Data Percent cell count reference ranges are not reported, since discordance with absolute values may lead to misinterpretation of CBC data. Current Interpretive Data was last revised on 2017. Eosinophil pct 1.1 % [facility] Comment: Interpretive Data Percent cell count reference ranges are not reported, since discordance with absolute values may lead to misinterpretation of CBC data. Current Interpretive Data was last revised on 2017. Basophil pct 0.9 % [facility] Comment: Interpretive Data Percent cell count reference ranges are not reported, since discordance with absolute values may lead to misinterpretation of CBC data. Current Interpretive Data was last revised on 2017. Blood 03/22/2024 9:59 AM STOPPER MAKER 03/22/2024 1:14 PM STOPPER MAKER Lore Montilla [employer] LAB BLOOD ORDERABLES Final Re sult Performing Organization Address City/[facility] Co de Phone Number [facility] [address] [place] [address] * C4 complement (03/22/2024 9:59 AM STOPPER MAKER) Complement C4 19 10 - 40 mg/dL Blood 03/22/2024 9:59 AM STOPPER MAKER 03/22/2024 2:40 PM STOPPER MAKER Lore Montilla [employer] LAB BLOOD ORDERABLES Final Re sult Performing Organization Address [facility] Phone Number [facility] [address] [place] [address] * CHAPIN ab eval w/reflex (03/22/2024 9:59 AM STOPPER MAKER) CHAPIN ab Negative Negative Comment: Interpretive Data Positive Screens will be reflexed to specific testing for Antibodies against the following antigens: Joanne-1 Ab, RIGGER Ab, Scl-70 Ab, Mills Ab, SS-A/Ro Ab, and SS- B/La Ab. Further testing for dsDNA, Centromere, or Ribosomal P antibodies is suggested in patient with a positive screen and negative specific antibodies. Current interpretive data was last revised on 2022. Testing performed by: [facility], [address] [place]., [address] Blood 03/22/2024 9:59 AM STOPPER MAKER 03/22/2024 4:47 PM STOPPER MAKER Lore Montilla [employer] LAB BLOOD ORDERABLES Final Re sult Performing Organization Address [facility] Co de Phone Number [facility] [address] [place] [address] * Thyroid Function Hazel (03/22/2024 9:59 AM STOPPER MAKER) TSH 1.29 0.30 - 4.20 mcIUnit/mL Blood 03/22/2024 9:59 AM STOPPER MAKER 03/22/2024 2:40 PM STOPPER MAKER Lore Montilla [employer] LAB BLOOD ORDERABLES Final Re sult Performing Organization Address [facility]/ZIP Co de Phone Number [facility] [address] [facility] [place] [address] * (ABNORMAL) Iron profile w/ IBC (03/22/2024 9:59 AM STOPPER MAKER) [facility] Iron 48 35 - 145 mcg/dL TIBC 329 250 - 400 mcg/dL [facility] Transferrin saturation 15(L) 20 - 50 % [facility] Blood 03/22/2024 9:59 AM STOPPER MAKER 03/22/2024 2:40 PM STOPPER MAKER Lore Montilla [employer] LAB BLOOD ORDERABLES Final Re sult Performing Organization Address [facility] Co de Phone Number [facility] [address] [facility] [place] [address] * (ABNORMAL) Urinalysis reflex to microscopic and culture Urine, clean voided (03/22/2024 9:59 AM STOPPER MAKER) [facility] Color, ur Yellow Yellow Clarity, ur Clear Clear [facility] Specific gravity, ur 1.023 1.003 - 1.030 [facility] pH, urine 6.5 [facility] Comment: Interpretive Data U rine pH is affected by diet, medications, systemic acid-base disturbances, and renal tubular function. pH may affect urinary stone formation. For example, urine pH below 6.0 may help reduce the tendency for calcium phosphate stones and pH greater than 6.0 may reduce the tendency for uric acid stone formation. Source: [facility] Current Interpretive Data was last revised on 2017 Protein, ur ql Negative Negative [facility] Glucose, ur ql Negative Negative [facility] Ketones, ur Negative Negative [facility] Bilirubin, ur Negative Negative [facility] Blood, ur Negative Negative [facility] Urobilinogen, ur <2.0 <2.0 mg/dL [facility] Nitrite, ur Negative Negative [facility] Leukocyte esterase, ur 2+(A) Negative [facility] UA reflex comment Reflex to microscopic UA will be performed. [facility] Urine, clean voided 03/22/2024 9:59 AM STOPPER MAKER 03/22/2024 10:18 AM STOPPER MAKER us Lore Montilla [employer] LAB MICROBIOLOGY - GENERAL OR DERABLES Final Result [facility] [address] Department [place] [address] * (ABNORMAL) CBC with auto differential (03/22/2024 9:59 AM STOPPER MAKER) WBC 4.4 3.8 - 9.9 K/cumm Hgb 12.9 11.9 - 15.5 g/dL [facility] Hct 40.5 35.6 - 45.5 % [facility] Plt 289 150 - 400 K/cumm [facility] MPV 10.7 9.1 - 12.3 fL [facility] RBC 4.77 3.90 - 5.20 M/cumm [facility] MCV 84.9 81.3 - 96.4 fL [facility] MCH 27.0(L) 27.1 - 33.3 pg [facility] MCHC 31.9(L) 32.3 - 35.7 g/dL [facility] RDW CV 12.4 11.1 - 14.9 % [facility] RDW SD 37.9 35.7 - 48.1 fL [facility] NRBC abs 0.00 0.00 - 0.01 K/cumm [facility] Blood 03/22/2024 9:59 AM STOPPER MAKER 03/22/2024 1:14 PM STOPPER MAKER us Lore Montilla [employer] LAB BLOOD ORDERABLES Final Re sult [facility] [address] Department [place] [address] * (ABNORMAL) Dario-Hoffmann virus (EBV) antibody panel Blood (03/22/2024 9:59 AM STOPPER MAKER) EBV nuclear Ab Positive(A) Negative Comment: Indicates the presence of detectable IgG antibody to EBV Nuclear Antigen. Testing performed by: [facility], [address] [place]., [address] EBV VCA IgG Positive(A) Negative [facility] Comment: Indicates the presence of antibody; 90% of the adult population will have been infected with EBV sometime in the past. Testing performed by: [facility], [address] [place]., [address] EBV VCA IgM Negative Negative [facility] Comment: No detectable IgM antibody to EBV-VCA. A negative result indicates no current infection with EBV. If clinical suspicion of acute EBV infection is present, testing should be repeated after one week. Testing performed by: [facility], [address] [place]., [address] EBV interp Past Infection [facility] Comment:Testing performed by : [facility], [address] [place]., [address] Blood 03/22/2024 9:59 AM STOPPER MAKER 03/22/2024 4:47 PM STOPPER MAKER us Lore Montilla [employer] LAB MICROBIOLOGY - GENERAL OR DERABLES Final Result Performing Organization Address City/[facility]/ZIP Co de Phone Number [facility] [address] Department [place] [address] * Cyclic citrul peptide antibody, IgG (03/22/2024 9:59 AM STOPPER MAKER) Pathologist [facility] CCP Ab <0.5 <=2.9 units/mL Comment: Interpretive data Negative: <3 units/mL Positive: > or equal to 3 units/mL Current interpretive data was last revised on 2016. Testing performed by: [facility], [address] [place]., [address] Blood 03/22/2024 9:59 AM STOPPER MAKER 03/22/2024 4:47 PM STOPPER MAKER Lore Montilla [employer] LAB BLOOD ORDERABLES Final Re sult Performing Organization Address City/[facility]/ZIP Co de Phone Number [facility] [address] Department [place] [address] * (ABNORMAL) Parvovirus B19 antibody, IgG and IgM Blood (03/22/2024 9:59 AM STOPPER MAKER) [facility] Parvovirus IgG Positive(A) Negative [place] ref Lab Parvovirus IgM Negative Negative [facility] Parvovirus B19 Interpretation See Footnote [facility] Comment: RESULT: Results suggest past infection. ADDITIONAL INFORMATION This test has been modified from the field organizer's instructions. Its performance characteristics were determined by [facility] in a manner consistent with CLIA requirements. This test has not been cleared or approved by the U.S. Food and Drug Administration. Test Performed by: [place] [address] Infrastructure Architect: Ronna Cole Ph.D.; CLIA# [id number] Blood 03/22/2024 9:59 AM STOPPER MAKER 03/22/2024 1:11 PM STOPPER MAKER Lore Montilla [employer] LAB MICROBIOLOGY - GENERAL OR DERABLES Final Result Performing Organization Address City/[facility]/ZIP Co de Phone Number [facility] [address] Department [employer] [place], [place] [id number] [place] ref [facility] * RPR Blood (03/22/2024 9:59 AM STOPPER MAKER) Pathologist [facility] RPR Nonreactive Nonreactive Comment:Testing performed by : [facility], [address] [facility], [place]., [address] Blood 03/22/2024 9:59 AM STOPPER MAKER 03/22/2024 4:41 PM STOPPER MAKER Lore Montilla [employer] LAB MICROBIOLOGY - GENERAL OR DERABLES Final Result Performing Organization Address [facility]/ZIP Co de Phone Number [facility] [address] [place] [address] * (ABNORMAL) Urinalysis, microscopic only (03/22/2024 9:59 AM STOPPER MAKER) WBC, ur 0-5 0 - 5 /HPF RBC, ur 0-2 0 - 2 /HPF [facility] Epithelial cells, squamous, ur 6-10(A) 0 - 5 /HPF [facility] Comment:Suggestive of contam ination. Consider recollection by clean catch. Bacteria, ur Trace(A) [facility] Mucous, ur Present(A) [facility] Culture Reflex Comment Reflex conditions for urine culture (WBC >10) not met. [facility] Urine, clean voided 03/22/2024 9:59 AM STOPPER MAKER 03/22/2024 1:10 PM STOPPER MAKER us Lore Montilla [employer] LAB URINE ORDERABLES Final Re sult Performing Organization Address [facility] Co de Phone Number [facility] [address] [place] [address] * Erythrocyte sedimentation rate (03/22/2024 9:59 AM STOPPER MAKER) Erythrocyte sedimentation rate 9 1 - 20 mm/hr Blood 03/22/2024 9:59 AM STOPPER MAKER 03/22/2024 1:14 PM STOPPER MAKER Lore Montilla [employer] LAB BLOOD ORDERABLES Final Re sult Performing Organization Address City/[facility]/ZIP Co de Phone Number [facility] [address] [facility] [place] [address] * Rheumatoid factor (03/22/2024 9:59 AM STOPPER MAKER) Rheumatoid factor, quant 10 <=15 IUnits/mL Blood 03/22/2024 9:59 AM STOPPER MAKER 03/22/2024 2:40 PM STOPPER MAKER Lore Montilla [employer] LAB BLOOD ORDERABLES Final Re sult Performing Organization Address [facility] Co de Phone Number [facility] [address] [facility] [place] [address] * C3 complement (03/22/2024 9:59 AM STOPPER MAKER) Pathologist [facility] Complement C3 131 90 - 180 mg/dL Blood 03/22/2024 9:59 AM STOPPER MAKER 03/22/2024 2:40 PM STOPPER MAKER Lore Montilla [employer] LAB BLOOD ORDERABLES Final Re sult Performing Organization Address [facility] Co de Phone Number [facility] [address] [facility] [place] [address] * CRP (acute phase) (03/22/2024 9:59 AM STOPPER MAKER) Pathologist [facility] CRP <3.0 <=10.0 mg/L Blood 03/22/2024 9:59 AM STOPPER MAKER 03/22/2024 2:40 PM STOPPER MAKER Lore Montilla [employer] LAB BLOOD ORDERABLES Final Re sult Performing Organization Address [facility] Co de Phone Number [facility] [address] [place] [address] * (ABNORMAL) Ferritin (03/22/2024 9:59 AM STOPPER MAKER) Pathologist [facility] Ferritin 10(L) 15 - 150 ng/mL Blood 03/22/2024 9:59 AM STOPPER MAKER 03/22/2024 2:40 PM STOPPER MAKER us Lore Montilla [employer] LAB BLOOD ORDERABLES Final Re sult [facility] [address] Department [place] [address] * Comprehensive metabolic panel (03/22/2024 9:59 AM STOPPER MAKER) [facility] Sodium 137 135 - 145 mmol/L Potassium, pl 3.8 3.3 - 4.9 mmol/L [facility] Chloride 101 97 - 110 mmol/L [facility] CO2 25 22 - 32 mmol/L [facility] Anion gap 11 2 - 15 mmol/L [facility] BUN 13 6 - 25 mg/dL [facility] Creatinine 0.88 0.60 - 1.10 mg/dL [facility] Glucose 73 70 - 199 mg/dL [facility] Comment: Interpretive Data Fasting glucose >/= 126 [...] 2022. Calcium 9.0 8.5 - 10.3 mg/dL [facility] Bilirubin, total 0.4 0.1 - 1.2 mg/dL [facility] Protein, pl 7.0 6.5 - 8.5 g/dL [facility] Albumin 4.6 3.5 - 5.0 g/dL [facility] Alk phos 91 40 - 130 Units/L [facility] ALT 14 7 - 45 Units/L [facility] AST 13 10 - 45 Units/L [facility] Blood 03/22/2024 9:59 AM STOPPER MAKER 03/22/2024 2:40 PM STOPPER MAKER us Lore Montilla NP LAB BLOOD ORDERABLES Final Re sult [facility] [address] [place] [address] from Last 3 Months Insurance [employer] OPEN ACCESS Care Teams Print Press Operator Relationship Specialty Start Date End Date Marlen Boudreaux NP [address] [address] PCP - General Family Medicine 01/31/24
--- OUTSIDE RECORDS SUMMARY | 2024-04-18 10:41 | XMS_ITS | Referral Summary ---
Author Organization [facility] Address [address] 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 This disclosure is being madepursuant to the Care Everywhere program and may not contain all information available regarding this patient. Last updated [facility] Allergies No known active allergies Medications Be [...] Comments Blood Pressure 110/54 01/17/2016 12:10 PM VARITYPIST Pulse 100 01/17/2016 12:10 PM VARITYPIST Temperature 37.2 C (98.9 F) 01/17/2016 12:10 PM VARITYPIST Respiratory Rate 16 01/17/2016 12:10 PM VARITYPIST Oxygen Saturation - - Inhaled Oxygen Concentration - - Weight 57.6 kg (127 lb) 01/17/2016 12:10 PM VARITYPIST Height 160 cm (5' 3 ) 01/17/2016 12:10 PM VARITYPIST Body Mass Index 22.5 01/17/2016 12:10 PM VARITYPIST Plan of Treatment Not on file [facility]Famil y [address] [place] [address] [facility] Personal[facility]Famil y [address] [place] [address]
--- OUTSIDE RECORDS SUMMARY | 2024-04-18 10:41 | XMS_ITS | Referral Summary ---
Author Organization [facility] D Address [address] [place] [id number] Care Team Providers Care Supervisor Fusing Room Name Role Phone Marlen Boudreaux WINDCHILL ADMINISTRATOR Primary Care Provider [phone] Encounters Date Type Department Care Team Description 04/12/2024 9:30 AM [facility] Office Visit [facility] Rheumatology at [address] [phone] Lore Montilla NP TANIA positive (Primary Dx); Other specified abnormal immunological findings in serum; Chronic night sweats; Swelling of lymph nodes 03/22/2024 Orders Only LAB INTERFACE [id number] Unknown, Notinfile 03/22/2024 2:18 PM [place] - 03/22/2024 11:59 PM [facility] Hospital Encounter [address] [phone] Discharge Disposition: Discharge to home or self care 03/22/2024 10:20 AM [place] [facility] - 03/22/2024 11:59 PM [facility] Hospital Encounter [facility] [address] [place] [phone] TANIA positive; Pain in other joint; Dry eye; Chronic night sweats Discharge Disposition: Discharge to home or self care 03/22/2024 9:30 AM [place] [facility] Office Visit [facility] Rheumatology at [address] [place] [phone] Lore Montilla NP TANIA positive (Primary Dx); Other specified abnormal immunological findings in serum; Pain in other joint; Dry eye; Chronic night sweats 01/31/2024 Telephone [facility] Rheumatology at [facility] [address] [facility] [address] [place] [address] April Murguia DO Social Security Benefits Interviewer Apt from Last 3 Months Allergies No known active allergies Medications escitalopram [...] by mouth every morning 5 Active vit 34-cumd-wywpm-d dawkins 27mg iron- 800 mcg-250 mg capsule Take by mouth Active buPROPion XL (WELLBUTRIN XL) 150 mg 24 hr tablet Take 1 tablet (150 mg total) by mouth daily 04/12/19 25 Discontinu ed(Alterna te therapy) Active Problems Problem Noted Date Diagnosed Date TANIA positive 03/22/2024 Assessment & Plan (03/22/2024 9:28 AM [place] [facility]): A positive TANIA test means that you [...] Comments Blood Pressure 112/72 04/12/2024 9:17 AM [place] [facility] Pulse 72 04/12/2024 9:17 AM [place] [facility] Temperature 36.7 C (98 F) 04/12/2024 9:17 AM [place] [facility] Respiratory Rate 20 04/12/2024 9:17 AM [place] [facility] Oxygen Saturation 98% 04/12/2024 9:17 AM [place] [facility] Inhaled Oxygen Concentration - - Weight 60.8 kg (134 lb) 04/12/2024 9:17 AM [place] Height 160 cm (5' 3 ) 04/12/2024 9:17 AM [place] [facility] Body Mass Index 23.74 04/12/2024 9:17 AM [place] Plan of Treatment Not on file Procedures Procedure Name Priority Date/Time Associated Diagnosis Comments XR CHEST PA LATERAL 2 VIEWS Schedule Routine, Read Routine (OP Routine) 03/22/2024 10:42 AM [place] [facility] TANIA positive Pain in other joint Dry eye Chronic night sweats XR FOOT BILATERAL 3 OR MORE VIEWS OF EACH Schedule Routine, Read Routine (OP Routine) 03/22/2024 10:42 AM [place] [facility] TANIA positive Pain in other joint XR HAND BILATERAL 3 OR MORE VIEWS OF EACH Schedule Routine, Read Routine (OP Routine) 03/22/2024 10:42 AM [place] [facility] TANIA positive Pain in other joint XR SACROILIAC JOINTS 3 OR MORE VIEWS Schedule Routine, Read Routine (OP Routine) 03/22/2024 10:42 AM [place] [facility] TANIA positive Pain in other joint HLA DISEASE ASSOCIATION B 27 Routine 03/22/2024 9:59 AM [place] [facility] EGFR Routine 03/22/2024 9:59 AM [place] [facility] TANIA positive Pain in other joint Dry eye URINALYSIS, MICROSCOPIC ONLY Routine 03/22/2024 9:59 AM [place] [facility] TANIA positive Pain in other joint Dry eye DIFFERENTIAL AUTO Routine 03/22/2024 9:5 9 AM [place] [facility] TANIA positive Pain in other joint Dry eye IRON PROFILE W/ IBC Routine 03/22/2024 9 :59 AM [place] [facility] TANIA positive Pain in other joint Dry eye FERRITIN Routine 03/22/2024 9:59 AM [place] [facility] TANIA positive Pain in other joint Dry eye THYROID FUNCTION CASCADE Routine 03/22/2024 9:59 AM [place] [facility] TANIA positive Pain in other joint Dry eye ERYTHROCYTE SEDIMENTATION RATE Routine 03/22/2024 9:59 AM [place] [facility] TANIA positive Pain in other joint Dry eye RHEUMATOID FACTOR Routine 03/22/2024 9:5 9 AM [place] [facility] TANIA positive Pain in other joint Dry eye CHAPIN ANTIBODY EVALUATION WITH REFLEX Routine 03/22/2024 9:59 AM [place] [facility] TANIA positive Pain in other joint Dry eye ANTI-DOUBLE STRANDED DNA ANTIBODIES Routine 03/22/2024 9:59 AM [place] [facility] TANIA positive Pain in other joint Dry eye CYCLIC CITRUL PEPTIDE ANTIBODY, IGG Routine 03/22/2024 9:59 AM [place] [facility] TANIA positive Pain in other joint Dry eye CRP (ACUTE PHASE) Routine 03/22/2024 9:5 9 AM [place] [facility] TANIA positive Pain in other joint Dry eye COMPREHENSIVE METABOLIC PANEL Routine 03/22/2024 9:59 AM [place] [facility] TANIA positive Pain in other joint Dry eye CBC WITH AUTO DIFFERENTIAL Routine 03/22/2024 9:59 AM [place] [facility] TANIA positive Pain in other joint Dry eye C4 COMPLEMENT Routine 03/22/2024 9:59 AM [place] [facility] TANIA positive Pain in other joint Dry eye C3 COMPLEMENT Routine 03/22/2024 9:59 AM [place] [facility] TANIA positive Pain in other joint Dry eye TANIA QUALITATIVE WITH REFLEX TO TANIA QUANTITATIVE Routine 03/22/2024 9:59 AM [place] [facility] TANIA positive Pain in other joint Dry eye RPR Routine 03/22/2024 9:59 AM [place] [facility] TANIA positive Pain in other joint Dry eye DARIO-HOFFMANN VIRUS VCA ANTIBODY PANEL Routine 03/22/2024 9:59 AM [place] [facility] TANIA positive Pain in other joint Dry eye PARVOVIRUS B19 ANTIBODY, IGG AND IGM Routine 03/22/2024 9:59 AM [place] [facility] TANIA positive Pain in other joint Dry eye URINALYSIS AND REFLEX TO MICROSCOPIC AND CULTURE Routine 03/22/2024 9:59 AM [place] [facility] TANIA positive Pain in other joint Dry eye from Last 3 Months Results * XR Foot Bilateral 3 or More Views of Each (03/22/2024 10:42 AM [place]) Anatomical Region Laterality Modality Lower Extremities, Foot Computed Radiography 03/22/2024 11:0 0 AM [facility] Impressions 03/22/2024 11:00 AM [place] 1. No characteristic finding of inflammatory arthritis are appreciated. 2. The feet are within expected limits bilaterally. Electronically signed by: Keny Larsen M.D. Narrative 03/22/2024 11:00 AM [place] [facility] Bilateral feet, 3 views each side HISTORY: [...] More Views of Each (03/22/2024 10:42 AM [place]) Anatomical Region Laterality Modality Upper Extremities, Hand Computed Radiography 03/22/2024 10:5 8 AM [place] [facility] Impressions 03/22/2024 10:58 AM [place] Left hand: 1. No characteristic findings of inflammatory arthritis are appreciated. 2. Otherwise negative left hand radiographic examination. Right hand: 1. No characteristic findings of inflammatory arthritis are appreciated. 2. Otherwise negative right hand radiographic examination. COMMENT: Please see above for additional findings. Electronically signed by: Keny Larsen M.D. Narrative 03/22/2024 10:58 AM [place] [facility] Bilateral hands, 3 views each side HISTORY: [...] 3 or More Views (03/22/2024 10:42 AM [place] [facility]) Anatomical Region Laterality Modality Pelvis, Body N/A Computed Radiogr aphy 03/22/2024 10:5 6 AM [place] Impressions 03/22/2024 10:56 AM [facility] 1. The sacroiliac joints are within expected limits. COMMENT: Please see above for additional findings. Electronically signed by: Keny Larsen M.D. Narrative 03/22/2024 10:56 AM [place] Sacroiliac joints, 3 views HISTORY: Joint pain, [...] Pa Lateral 2 Views (03/22/2024 10:42 AM [place]) Anatomical Region Laterality Modality Body, Chest N/A Computed Radiogr aphy 03/22/2024 11:0 0 AM [place] Impressions 03/22/2024 11:00 AM [place] [facility] 1. Negative chest radiograph. COMMENT: Please see above for additional findings. Electronically signed by: Keny Larsen M.D. Narrative 03/22/2024 11:00 AM [place] [facility] Chest Radiograph, 2 views HISTORY: chronic fatigue, [...] w/rflx to TANIA qn (03/22/2024 9:59 AM [place] [facility]) TANIA Positive 1:2560 Comment: Interpretive Data Normal [...] last revised on 2019. Testing performed by: [facility], [address] [place]., [address] TANIA, quant 1:2560 titer [facility] Comment:Testing performed by : [facility], [address] [place] [address]., [id number] TANIA, interp Speckled(A) [facility] Comment:Testing performed by : [facility], [address] [place]., [address] Blood 03/22/2024 9:59 AM [place] [facility] 03/22/2024 4:47 PM [place] us Lore Montilla WINDCHILL ADMINISTRATOR LAB BLOOD ORDERABLES Final Re sult [facility] [address] Department [place] [address] * HLA disease association B 27 (03/22/2024 9:59 AM [place] [facility]) HLA-B27 interp HLA-B*27 is Negative. [facility] 03/22/2024 9:59 AM [place] [facility] 03/26/2024 10:09 AM [facility] Narrative [facility] - 03/26/2024 10:09 AM [place] [facility] HLA-B typing is performed using the reverse sequence specific oligonucleotide (r-SSO) method, which is based on an FDA approved IVD kit and validated by the [facility] HLA laboratory. Interpretive comments: HLA-B*27 positivity [...] J Med 2016;374:[id number]) Testing performed at the [facility], [address] [place] [address], 5th floor, [place], [address]. [facility] # [id number]. Trudi Barraza, Ph.D., Neurology Hospitalist, HLA Laboratory Rhett Guerra M.D., Ph.D., Casino Shift Manager, [facility] Laboratory Dori Hurtado, Ph.D., CLIA Casino Shift Manager, [facility] Clinical Laboratories Current methodology and interpretive comments were last revised on 09/19/2016 us Notinfile Unknown LAB BLOOD ORDERABLES Final Res ult Performing Organization Address City/[facility] Co de Phone Number [facility] * Anti-double stranded DNA abs (03/22/2024 9:59 AM [place] [facility]) [facility] dsDNA Ab <1.0 <=4.0 IUnits/mL Comment: Interpretive Data Negative: < or = 4 IUnits/mL Indeterminate: 5 - 9 IUnits/mL Positive: > or = 10 IUnits/mL Current interpretive data was last revised on 2016. Testing performed by: [facility], [address] [place] [address]., [id number] Blood 03/22/2024 9:59 AM [place] [facility] 03/22/2024 4:47 PM [place] [facility] us Lore Montilla WINDCHILL ADMINISTRATOR LAB BLOOD ORDERABLES Final Re sult [facility] [address] Department [place] [address] * eGFR (03/22/2024 9:59 AM [place] [facility]) Pathologist [facility] eGFR >90 >=60 mL/min/1. 73 m2 Comment: [...] last reviewed 2020. Blood 03/22/2024 9:59 AM [place] 03/22/2024 2:40 PM [place] [facility] us Lore Montilla NP LAB BLOOD ORDERABLES Final Re sult [facility] [address] Department [place] [address] * Differential, auto (03/22/2024 9:59 AM [place] [facility]) Pathologist [facility] Neutrophil abs 2.5 1.5 - 6.5 K/cumm Imm gran abs 0.0 0.0 - 0.1 K/cumm [facility] Lymphocyte abs 1.4 0.8 - 3.3 K/cumm [facility] Monocyte abs 0.4 0.2 - 0.8 K/cumm [facility] Eosinophil abs 0.1 0.0 - 0.5 K/cumm [facility] Basophil abs 0.0 0.0 - 0.1 K/cumm [facility] Neutrophil pct 56.9 % [facility] Comment: Interpretive Data Percent cell count reference ranges are not reported, since discordance with absolute values may lead to misinterpretation of CBC data. Current Interpretive Data was last revised on 2017. Imm gran pct 0.2 % [facility] Comment: Interpretive Data Percent cell count reference ranges are not reported, since discordance with absolute values may lead to misinterpretation of CBC data. Current Interpretive Data was last revised on 2017. Lymphocyte pct 32.9 % [facility] Comment: Interpretive Data Percent cell count reference ranges are not reported, since discordance with absolute values may lead to misinterpretation of CBC data. Current Interpretive Data was last revised on 2017. Monocyte pct 8.0 % [facility] Comment: Interpretive Data Percent cell count reference ranges are not reported, since discordance with absolute values may lead to misinterpretation of CBC data. Current Interpretive Data was last revised on 2017. Eosinophil pct 1.1 % [facility] Comment: Interpretive Data Percent cell count reference ranges are not reported, since discordance with absolute values may lead to misinterpretation of CBC data. Current Interpretive Data was last revised on 2017. Basophil pct 0.9 % [facility] Comment: Interpretive Data Percent cell count reference ranges are not reported, since discordance with absolute values may lead to misinterpretation of CBC data. Current Interpretive Data was last revised on 2017. Blood 03/22/2024 9:59 AM [place] [facility] 03/22/2024 1:14 PM [place] [facility] us Lore Montilla WINDCHILL ADMINISTRATOR LAB BLOOD ORDERABLES Final Re sult [facility] [address] Department [place] [address] * C4 complement (03/22/2024 9:59 AM [place] [facility]) Complement C4 19 10 - 40 mg/dL Blood 03/22/2024 9:59 AM [place] [facility] 03/22/2024 2:40 PM [place] [facility] Lore Montilla WINDCHILL ADMINISTRATOR LAB BLOOD ORDERABLES Final Re sult Performing Organization Address [facility]/ZIP Co de Phone Number [facility] [address] [place] [address] * CHAPIN ab eval w/reflex (03/22/2024 9:59 AM [place] [facility]) CHAPIN ab Negative Negative Comment: Interpretive Data Positive Screens will be reflexed to specific testing for Antibodies against the following antigens: Joanne-1 Ab, ELEVATOR EXAMINER Ab, Scl-70 Ab, Mills Ab, SS-A/Ro Ab, and SS- B/La Ab. Further testing for dsDNA, Centromere, or Ribosomal P antibodies is suggested in patient with a positive screen and negative specific antibodies. Current interpretive data was last revised on 2022. Testing performed by: [facility], [address] [place]., [address] Blood 03/22/2024 9:59 AM [place] [facility] 03/22/2024 4:47 PM [place] Lore Montilla WINDCHILL ADMINISTRATOR LAB BLOOD ORDERABLES Final Re sult Performing Organization Address [facility] Co de Phone Number [facility] [address] [place] [address] * Thyroid Function [place] (03/22/2024 9:59 AM [place] [facility]) TSH 1.29 0.30 - 4.20 mcIUnit/mL Blood 03/22/2024 9:59 AM [place] [facility] 03/22/2024 2:40 PM [place] Lore Montilla WINDCHILL ADMINISTRATOR LAB BLOOD ORDERABLES Final Re sult Performing Organization Address City/[facility]/ZIP Co de Phone Number [facility] [address] [place] [address] * (ABNORMAL) Iron profile w/ IBC (03/22/2024 9:59 AM [place] [facility]) Iron 48 35 - 145 mcg/dL TIBC 329 250 - 400 mcg/dL [facility] Transferrin saturation 15(L) 20 - 50 % [facility] Blood 03/22/2024 9:59 AM [place] [facility] 03/22/2024 2:40 PM [place] us Lore Montilla WINDCHILL ADMINISTRATOR LAB BLOOD ORDERABLES Final Re sult Performing Organization Address [facility] Co de Phone Number [facility] [address] Department [place] [address] * (ABNORMAL) Urinalysis reflex to microscopic and culture Urine, clean voided (03/22/2024 9:59 AM [place] [facility]) Color, ur Yellow Yellow Clarity, ur Clear Clear [facility] Specific gravity, ur 1.023 1.003 - 1.030 [facility] pH, urine 6.5 [facility] Comment: Interpretive Data U rine pH is affected by diet, medications, systemic acid-base disturbances, and renal tubular function. pH may affect urinary stone formation. For example, urine pH below 6.0 may help reduce the tendency for calcium phosphate stones and pH greater than 6.0 may reduce the tendency for uric acid stone formation. Source: [facility] Current Interpretive Data was last revised on 2017 Protein, ur ql Negative Negative [facility] Glucose, ur ql Negative Negative [facility] Ketones, ur Negative Negative [facility] Bilirubin, ur Negative Negative [facility] Blood, ur Negative Negative [facility] Urobilinogen, ur <2.0 <2.0 mg/dL [facility] Nitrite, ur Negative Negative [facility] Leukocyte esterase, ur 2+(A) Negative [facility] UA reflex comment Reflex to microscopic UA will be performed. [facility] Urine, clean voided 03/22/2024 9:59 AM [place] [facility] 03/22/2024 10:18 AM [place] [facility] us Lore Montilla NP LAB MICROBIOLOGY - GENERAL OR DERABLES Final Result Performing Organization Address [facility] Co de Phone Number [facility] [address] Department [place] [address] * (ABNORMAL) CBC with auto differential (03/22/2024 9:59 AM [place] [facility]) [facility] WBC 4.4 3.8 - 9.9 K/cumm Hgb 12.9 11.9 - 15.5 g/dL [facility] Hct 40.5 35.6 - 45.5 % [facility] Plt 289 150 - 400 K/cumm [facility] MPV 10.7 9.1 - 12.3 fL [facility] RBC 4.77 3.90 - 5.20 M/cumm [facility] MCV 84.9 81.3 - 96.4 fL [facility] MCH 27.0(L) 27.1 - 33.3 pg [facility] MCHC 31.9(L) 32.3 - 35.7 g/dL [facility] RDW CV 12.4 11.1 - 14.9 % [facility] RDW SD 37.9 35.7 - 48.1 fL [facility] NRBC abs 0.00 0.00 - 0.01 K/cumm [facility] Blood 03/22/2024 9:59 AM [place] [facility] 03/22/2024 1:14 PM [place] [facility] us Lore Montilla WINDCHILL ADMINISTRATOR LAB BLOOD ORDERABLES Final Re sult Performing Organization Address [facility]/ZIP Co de Phone Number [facility] [address] [place] [address] * (ABNORMAL) Dario-Hoffmann virus (EBV) antibody panel Blood (03/22/2024 9:59 AM [place] [facility]) [facility] EBV nuclear Ab Positive(A) Negative Comment: Indicates the presence of detectable IgG antibody to EBV Nuclear Antigen. Testing performed by: [facility], [address] [facility], [place]., [address] EBV VCA IgG Positive(A) Negative [facility] Comment: Indicates the presence of antibody; 90% of the adult population will have been infected with EBV sometime in the past. Testing performed by: [facility], [address] [place]., [address] EBV VCA IgM Negative Negative [facility] Comment: No detectable IgM antibody to EBV-VCA. A negative result indicates no current infection with EBV. If clinical suspicion of acute EBV infection is present, testing should be repeated after one week. Testing performed by: [facility], [address] [place]., [address] EBV interp Past Infection [facility] Comment:Testing performed by : [facility], [address] [place] [address]., [id number] Blood 03/22/2024 9:59 AM [place] [facility] 03/22/2024 4:47 PM [place] [facility] Lore Montilla NP LAB MICROBIOLOGY - GENERAL OR DERABLES Final Result Performing Organization Address [facility] Co de Phone Number [facility] [address] [place] [address] * Cyclic citrul peptide antibody, IgG (03/22/2024 9:59 AM [place] [facility]) CCP Ab <0.5 <=2.9 units/mL Comment: Interpretive data Negative: <3 units/mL Positive: > or equal to 3 units/mL Current interpretive data was last revised on 2016. Testing performed by: [facility], [address] [place]., [address] Blood 03/22/2024 9:59 AM [place] [facility] 03/22/2024 4:47 PM [place] [facility] us Lore Montilla WINDCHILL ADMINISTRATOR LAB BLOOD ORDERABLES Final Re sult Performing Organization Address [facility]/ZIP Co de Phone Number [facility] [address] [place] [address] * (ABNORMAL) Parvovirus B19 antibody, IgG and IgM Blood (03/22/2024 9:59 AM [place] [facility]) Parvovirus IgG Positive(A) Negative [facility] Parvovirus IgM Negative Negative [facility] Parvovirus B19 Interpretation See Footnote [facility] Comment: RESULT: Results suggest past infection. ADDITIONAL INFORMATION This test has been modified from the composition board press operator's instructions. Its performance characteristics were determined by [facility] in a manner consistent with CLIA requirements. This test has not been cleared or approved by the U.S. Food and Drug Administration. Test Performed by: [address] [address] Tar Distributor Operator: Ronna Cole Ph.D.; CLIA# [id number] Blood 03/22/2024 9:59 AM [place] 03/22/2024 1:11 PM [place] [facility] Lore Montilla NP LAB MICROBIOLOGY - GENERAL OR DERABLES Final Result [facility] [address] [email or web address] [address] [facility] * RPR Blood (03/22/2024 9:59 AM [place] [facility]) Pathologist [facility] RPR Nonreactive Nonreactive Comment:Testing performed by : [facility], [address] [place]., [address] Blood 03/22/2024 9:59 AM [place] [facility] 03/22/2024 4:41 PM [place] [facility] Lore Montilla NP LAB MICROBIOLOGY - GENERAL OR DERABLES Final Result [facility] [address] Department [place] [address] * (ABNORMAL) Urinalysis, microscopic only (03/22/2024 9:59 AM [place] [facility]) WBC, ur 0-5 0 - 5 /HPF RBC, ur 0-2 0 - 2 /HPF [facility] Epithelial cells, squamous, ur 6-10(A) 0 - 5 /HPF [facility] Comment:Suggestive of contam ination. Consider recollection by clean catch. Bacteria, ur Trace(A) [facility] Mucous, ur Present(A) [facility] Culture Reflex Comment Reflex conditions for urine culture (WBC >10) not met. [facility] Urine, clean voided 03/22/2024 9:59 AM [place] [facility] 03/22/2024 1:10 PM [place] [facility] Lore Montilla WINDCHILL ADMINISTRATOR LAB URINE ORDERABLES Final Re sult Performing Organization Address [facility] Co de Phone Number [facility] [address] [facility] [address] * Erythrocyte sedimentation rate (03/22/2024 9:59 AM [place]) Erythrocyte sedimentation rate 9 1 - 20 mm/hr Blood 03/22/2024 9:59 AM [place] [facility] 03/22/2024 1:14 PM [place] [facility] Lore Montilla WINDCHILL ADMINISTRATOR LAB BLOOD ORDERABLES Final Re sult Performing Organization Address [facility] Co de Phone Number [facility] [address] [place] [address] * Rheumatoid factor (03/22/2024 9:59 AM [place] [facility]) Rheumatoid factor, quant 10 <=15 IUnits/mL Blood 03/22/2024 9:59 AM [place] [facility] 03/22/2024 2:40 PM [place] [facility] Lore Montilla WINDCHILL ADMINISTRATOR LAB BLOOD ORDERABLES Final Re sult Performing Organization Address [facility] Co de Phone Number [facility] [address] [address] * C3 complement (03/22/2024 9:59 AM [place] [facility]) Pathologist [facility] Complement C3 131 90 - 180 mg/dL Blood 03/22/2024 9:59 AM [place] [facility] 03/22/2024 2:40 PM [place] [facility] Lore Montilla WINDCHILL ADMINISTRATOR LAB BLOOD ORDERABLES Final Re sult Performing Organization Address [facility] Healthcare/[facility] Co de Phone Number [facility] [address] [facility] [address] * CRP (acute phase) (03/22/2024 9:59 AM CROSSBAND LAYER) [facility] CRP <3.0 <=10.0 mg/L Blood 03/22/2024 9:59 AM CROSSBAND LAYER 03/22/2024 2:40 PM CROSSBAND LAYER Lore Montilla WINDCHILL ADMINISTRATOR LAB BLOOD ORDERABLES Final Re sult Performing Organization Address [facility] de Phone Number [facility] [address] [facility] [place], [place] [id number] * (ABNORMAL) Ferritin (03/22/2024 9:59 AM CROSSBAND LAYER) [facility] Ferritin 10(L) 15 - 150 ng/mL Blood 03/22/2024 9:59 AM CROSSBAND LAYER 03/22/2024 2:40 PM CROSSBAND LAYER Lore Montilla WINDCHILL ADMINISTRATOR LAB BLOOD ORDERABLES Final Re sult Performing Organization Address [facility] de Phone Number [facility] [address] [place], [place] [id number] * Comprehensive metabolic panel (03/22/2024 9:59 AM CROSSBAND LAYER) [facility] Sodium 137 135 - 145 mmol/L Potassium, pl 3.8 3.3 - 4.9 mmol/L [facility] Chloride 101 97 - 110 mmol/L [facility] CO2 25 22 - 32 mmol/L [facility] Anion gap 11 2 - 15 mmol/L [facility] BUN 13 6 - 25 mg/dL [facility] Creatinine 0.88 0.60 - 1.10 mg/dL [facility] Glucose 73 70 - 199 mg/dL [facility] Comment: Interpretive Data Fasting glucose [...] 2022. Calcium 9.0 8.5 - 10.3 mg/dL [facility] Bilirubin, total 0.4 0.1 - 1.2 mg/dL [facility] Protein, pl 7.0 6.5 - 8.5 g/dL [facility] Albumin 4.6 3.5 - 5.0 g/dL [facility] Alk phos 91 40 - 130 Units/L [facility] ALT 14 7 - 45 Units/L [facility] AST 13 10 - 45 Units/L [facility] Blood 03/22/2024 9:59 AM [facility]AND LAYER 03/22/2024 2:40 PM CROSSBAND LAYER us Lore Montilla WINDCHILL ADMINISTRATOR LAB BLOOD ORDERABLES Final Re sult [facility] [address] Department [place] [address] from Last 3 Months Insurance [facility] OPEN ACCESS Care Teams Supervisor Fusing Room Relationship Specialty Start Date End Date Marlen Boudreaux NP [address] [address] PCP - General Family Medicine 01/31/24
--- OUTSIDE RECORDS SUMMARY | 2024-04-18 10:41 | XMS_ITS | Clinical Summary ---
Author Organization [facility] [employer] Address [address] [place] [address] Care Team Providers Care Terra Cotta Mold Maker Name Role Phone Unavailable Primary Care Provider Unavailabl e Source Comments [facility] [employer],non-owned Affiliates and Associated Physician Practices is amultiple site organization consisting of ambulatory clinics and hospital sitesin [place], [place], [place] and [place]. This disclosure is being madepursuant to the Care Everywhere program and may not contain all information available regarding this patient. Last updated 17.[facility] [employer] Allergies No known active allergies Medications Be [...] Comments Blood Pressure 110/54 01/17/2016 12:10 PM PROFESSOR OF THEATRE Pulse 100 01/17/2016 12:10 PM PROFESSOR OF THEATRE Temperature 37.2 C (98.9 F) 01/17/2016 12:10 PM PROFESSOR OF THEATRE Respiratory Rate 16 01/17/2016 12:10 PM PROFESSOR OF THEATRE Oxygen Saturation - - Inhaled Oxygen Concentration - - Weight 57.6 kg (127 lb) 01/17/2016 12:10 PM PROFESSOR OF THEATRE Height 160 cm (5' 3 ) 01/17/2016 12:10 PM PROFESSOR OF THEATRE Body Mass Index 22.5 01/17/2016 12:10 PM PROFESSOR OF THEATRE Plan of Treatment Health Maintenance Due Date [...] Rekha DIANE Personal/Famil y Self 1995 [address] [address] SABA DIANE E Personal/Famil y Spouse [address] [address] SABA DIANE E Personal/Famil y Spouse [address] [address] SABA DIANE E Personal/Famil y [address] [address] SABA DIANE E Personal/Famil y [address] [address]
--- OUTSIDE RECORDS SUMMARY | 2024-04-18 10:41 | XMS_ITS | Clinical Summary ---
Author Organization [facility] Address [address] [place] [address] Care Team Providers Care Sheep Farmer Name Role Phone Marlen Boudreaux Primary Care Provider [phone] Allergies No known active allergies Medications escitalopram [...] patient's age to complete this topic Insurance [facility] Care Teams Sheep Farmer Relationship Specialty Start Date End Date Marlen Boudreaux APNP [address] [phone] PCP - General Nurse Practitioner Family 07/11/22
--- OUTSIDE RECORDS SUMMARY | 2024-04-18 10:41 | XMS_ITS | Patient Health Summary ---
Author Organization [facility] Address [address] [place] [address] Care Team Providers Care Superintendent [employer] Name Role Phone Unavailable Primary Care Provider Unavailabl e Note from [facility],non-owned Affiliates and Associated Physician Practices is amultiple site organization consisting of ambulatory clinics and hospital sitesin [place], [place], [place] and [place]. This disclosure is being madepursuant to the Care Everywhere program and may not contain all information available regarding this patient. Last updated 17.[facility] Allergies No known active allergies Medications Be [...] Comments Blood Pressure 110/54 01/17/2016 12:10 PM INSTRUCTIONAL SUPERVISOR Pulse 100 01/17/2016 12:10 PM INSTRUCTIONAL SUPERVISOR Temperature 37.2 C (98.9 F) 01/17/2016 12:10 PM INSTRUCTIONAL SUPERVISOR Respiratory Rate 16 01/17/2016 12:10 PM INSTRUCTIONAL SUPERVISOR Oxygen Saturation - - Inhaled Oxygen Concentration - - Weight 57.6 kg (127 lb) 01/17/2016 12:10 PM INSTRUCTIONAL SUPERVISOR Height 160 cm (5' 3 ) 01/17/2016 12:10 PM INSTRUCTIONAL SUPERVISOR Body Mass Index 22.5 01/17/2016 12:10 PM INSTRUCTIONAL SUPERVISOR Procedures * DERMATOPATHOLOGY(Performed 02/17/2022) * DERMATOPATHOLOGY(Performed 02/08/2022) * STREP A SCREEN - POINT OF CARE (AMB) STL(Performed 01/17/2016) Performed for Acute pharyngitis, unspecified etiology Results * DERMATOPATHOLOGY (02/17/2022 12:00 AM INSTRUCTIONAL SUPERVISOR) Only the most recent of2 resultswithin the time period is included. Case Report Dermatopathology Report Case: [id number] Authorizing Provider: Tiff Caldwell, Collected: 02/17/2022 12:00 AM SCARF GLUER-VIDEO GAME TESTER Ordering Location: [facility] DermPath Lab Received: 02/18/2022 07:23 AM Pathologist: Abi Mills MD Specimens: A) - Skin, right abdomen B) - Skin, left abdomen C) - Skin, left upper abdomen/chest 2 3:20 PM [facility] DERMATOPATHOLOGY LABORATORY Final Diagnosis Specimen A. SKIN, right abdomen: INTRADERMAL MELANOCYTIC NEVUS WITH CONGENITAL FEATURES (D22.9) Specimen B. SKIN, left abdomen: COMPOUND NEVUS WITH CONGENITAL FEATURES (D22.5) Specimen C. SKIN, left upper abdomen/chest: COMPOUND NEVUS WITH CONGENITAL FEATURES (D22.5) 2 3:20 PM [facility] DERMATOPATHOLOGY LABORATORY Clinical History A-C: R/O: Nevus, Irritated 2 3:20 PM [facility] DERMATOPATHOLOGY LABORATORY Gross Description Specimen A: Received is one formalin filled container labeled with the patient's name and designated right abdomen. The specimen consists of a shave biopsy measuring [id number]. Jar 0. Specimen B: Received is one formalin filled container labeled with the patient's name and designated left abdomen. The specimen consists of a shave biopsy measuring [id number]. Jar 0. Specimen C: Received is one formalin filled container labeled with the patient's name and designated left upper abdomen/chest. The specimen consists of a shave biopsy measuring [id number]. Jar 0. 2 3:20 PM [facility] DERMATOPATHOLOGY LABORATORY Microscopic Description Specimen A. SKIN, [...] localized around adnexal structures. 2 3:20 PM INSTRUCTIONAL SUPERVISOR DERMATOPATHOLOGY LABORATORY Disclaimer An external and internal positive and negative controls are appropriate for the histochemical, immunohistochemical and immunofluorescence stain(s) in this case (if any), except where stated explicitly. The performance characteristics of the stain(s) cited in this report were developed and its performance characteristic determined by the Dermatopathology Laboratory at [facility], directed by Dr. Joseph Brown. These tests need not be, and therefore are not, approved by the [place] Food and Drug Administration. The tests are used for clinical purposes. Billing Codes Specimen Charges Stain Charges 05267 [id number] 1 1 1 2 3:20 PM INSTRUCTIONAL SUPERVISOR DERMATOPATHOLOGY LABORATORY Embedded Images 2 3:20 PM INSTRUCTIONAL SUPERVISOR DERMATOPATHOLOGY LABORATORY Pathology/Cytology TISSUE SPECIMEN FROM SKIN / Unknown 02/17/2022 02/18/2022 7:23 AM INSTRUCTIONAL SUPERVISOR Miscellaneous samples (specimen) TISSUE SPECIMEN FROM SKIN / Unknown 02/17/2022 02/18/2022 7:23 AM INSTRUCTIONAL SUPERVISOR Miscellaneous samples (specimen) TISSUE SPECIMEN FROM SKIN / Unknown 02/17/2022 02/18/2022 7:23 AM INSTRUCTIONAL SUPERVISOR Tiff Caldwell APRN-[facility] LAB - PATH OLOGY/CYTOLOGY ORDERABLES DERMATOPATHOLOGY LABORATORY [facility] - Department of Dermatology [facility] Medicine [address] [place] [address], [address] [phone] * STREP A SCREEN (01/17/2016) Strep A Rapid POCT Negative Negative Strep A Internal Control Present Lot # [id number] Expiration Date [id number] Throat ENTIRE THROAT (SURFACE REGION OF NECK) / Unknown 01/17/2016 Aubrie Sharp SCARF GLUER-VIDEO GAME TESTER LAB - POINT O F CARE ORDERABLES
== END 2024-04-18 10:19 | disposition home or self-care (01) ==
PROVIDERS: PCP Nurse Practitioner Family; Visit Provider Nurse Practitioner Family
DX: H93.19 Tinnitus, unspecified ear (principal); R42 Dizziness and giddiness
CPT/HCPCS: 70553; A9577

== ENCOUNTER 2025-01-20 08:54 | Outpatient (CLI) | payer OTHER, SELFPAY ==
--- NOTE | ~2025-01-20 | US_ITS ---
ULTRASOUND ABDOMEN LIMITED (RIGHT UPPER QUADRANT) Clinical History: R10.11 - Right upper quadrant pain Comparison: 08/13/2022 Technique: Right upper quadrant sonography Findings: Liver: Normal size. Normal echotexture. No intrahepatic biliary ductal dilatation. Normal hepatopedal flow main portal vein. 18 mm and 9 mm hyperechoic focus right lobe, most consistent with hemangioma; attention on future scans. Common Duct: Normal caliber. 3 mm. Gallbladder: No stones. No wall thickening. No pericholecystic fluid. Pancreas: Unremarkable. IMPRESSION: 1. No acute findings. Reviewed, dictated and finalized at location R. F STRAW HAT WASHER IMPRESSION: 1. No acute findings.
== END 2025-01-20 08:55 | disposition home or self-care (01) ==
PROVIDERS: PCP Nurse Practitioner; Visit Provider Nurse Practitioner Family
DX: R10.11 Right upper quadrant pain (principal)
CPT/HCPCS: 76705

== ENCOUNTER 2025-01-31 07:43 | Outpatient (CLI) | payer OTHER, SELFPAY ==
--- NOTE | ~2025-01-31 | NM_ITS ---
EXAMINATION: NM_HEPATWE_NM DATE: 01/31/2025 11:16 INDICATION: Right upper quadrant abdominal pain and nausea COMPARISON: None. TECHNIQUE: 5 mCi Tc-99m mebrofenin (Choletec) was administered intravenously. Scintigraphic images of the abdomen were obtained for one hour. At the 1 hour time point, the patient drank 8 oz Ensure, and imaging was continued for 60 minutes. Gallbladder ejection fraction was calculated by the technologist. FINDINGS: There is normal clearance of radiotracer from the blood pool. There is homogeneous tracer uptake by the liver. Activity progresses to the bowel and gallbladder. The gallbladder ejection fraction (GBEF) is 40%. Note that with this technique, normal GBEF >= 33%. IMPRESSION: 1. Normal hepatobiliary scan. Reviewed, dictated and finalized at location A. M POWER PLANT OPERATOR
== END 2025-01-31 07:44 | disposition home or self-care (01) ==
PROVIDERS: PCP Nurse Practitioner Family; Visit Provider Nurse Practitioner Family
DX: R10.11 Right upper quadrant pain (principal); R11.0 Nausea
CPT/HCPCS: 78226; A9537